=== PATIENT | female | born 1955 | race Caucasian/White ===

== ENCOUNTER → 2018-12-06 | Outpatient (CLI) | payer OTHER, SELFPAY ==
--- NOTE | 2018-12-06 12:33 | BI_ITS ---
MAMMOGRAPHY - BILATERAL SCREENING REASON FOR EXAM: Female, 63 years old. Routine annual screening examination. PERTINENT HISTORY: Aunt with breast cancer. TECHNIQUE: Digital bilateral breast ramya (3D mammographic acquisition) in the CC and MLO projections. 2-D mediolateral oblique (MLO) and craniocaudad (CC) views of both breasts were obtained. CAD: Full Field Digital Mammography with Computer Added Detection was performed. COMPARISON: Comparison is made with prior study dated September 25, 2017. FINDINGS: Breast Composition: There are scattered areas of fibroglandular density. There are no dominant masses or suspicious calcifications. No other significant abnormalities are identified. There has been no significant change since the prior study. BI/SCREEN MAMM (CAD) W/RAMYA BILAT IMPRESSION: Stable bilateral screening mammogram. Yearly follow-up mammogram recommended. (A) ASSESSMENT CATEGORY: BIRADS Category 1: Negative. A letter regarding these results will be sent to the patient by the facility within 30 days. Approximately 10% of breast cancers are not detected by mammography. A normal mammogram should not delay biopsy of a clinically suspicious abnormality. [id number] Electronically Signed: Ian Moore, at 14:14 EDT , Service support ,
== END | disposition home or self-care (01) ==
LOC: OPBI 12:32
PROVIDERS: Family Provider Family Medicine; PCP Family Medicine; Referring Provider Family Medicine; Visit Provider Family Medicine
DX: Z12.31 Encounter for screening mammogram for malignant neoplasm of breast (principal)
CPT/HCPCS: 77063; 77067

== ENCOUNTER → 2018-12-10 | Outpatient (CLI) | payer OTHER, SELFPAY ==
--- NOTE | 2018-12-10 09:36 | BD_ITS ---
STUDY: DUAL ENERGY X-RAY ABSORPTIOMETRY / DXA REASON FOR EXAM: Female, 63 years old. Early menopause. Loss of height. TECHNIQUE: Bone Mineral Density (BMD) measurements of lumbar spine and bilateral hips were obtained. COMPARISON: None. FINDINGS: Lumbar Spine (L1-L4): g/cm2 (0.805) / T-score (-3.0) / Z-score (-1.7) Findings are suggestive of osteoporosis with a high fracture risk. Left Femur Total: g/cm2 (0.892) / T-score (-0.9) / Z-score (0.1) Left Femoral Neck: g/cm2 (0.795) / T-score (-1.8) / Z-score (-0.4) Right Femur Total: g/cm2 (0.892) / T-score (-0.9) / Z-score (0.1) Right Femoral Neck: g/cm2 (0.795) / T-score (-1.8) / Z-score (-0.4) BD/Dexa Bone Density Study IMPRESSION: The patient is considered osteoporotic as outlined below according to World [employer] Organization (WHO) criteria with a high fracture risk. Reference Information: The T-score is the number of standard deviations above or below the standard which is normal for young adults at their peak bone mineral density. The World Health Organization (WHO) interprets the T-scores as follows: Above -1 Normal bone density Between -1 and -2.5 Osteopenia Equal to / or below -2.5 Osteoporosis As a practical clinical guideline, osteopenia may be graded as follows: Mild -1 through -1.5 Moderate -1.6 through -2.0 Severe -2.1 through -2.4 The Z-score is the number of standard deviations above or below age-matched controls. A Z-score of less than -1.5 would be considered abnormal. References: 1. NIH Osteoporosis and Related Bone Diseases http://www.osteo.org 2. International Society for Clinical Densitometry http://www.iscd.org 3. National Osteoporosis Foundation http://www.nof.org Electronically Signed: Ian Moore, at 11:30 EDT , Service support ,
== END | disposition home or self-care (01) ==
LOC: OPBD 09:30
PROVIDERS: Family Provider Family Medicine; PCP Family Medicine; Visit Provider Family Medicine
DX: Z78.0 Asymptomatic menopausal state (principal)
CPT/HCPCS: 77080

== ENCOUNTER → 2018-12-17 | Outpatient (CLI) | payer OTHER, SELFPAY ==
[2018-12-17 10:47] LABS: Anion Gap 8 (5-15); BUN 15 mg/dL (7-18); BUN/Creat Ratio 26.7 RATIO (10-20); Calcium,Total 8.7 mg/dL (8.5-10.1); Chloride 106 mmol/L (98-107); Cholesterol 145 mg/dL (200); Creatinine, Serum 0.56 mg/dL (0.55-1.02); EST Glomerular Filtration Rate 116 mL/min (>60); Est Glom Filt Rate - Afr Amer 141 mL/min (>60); Glucose 176 mg/dL (74-106); High Density Lipoprotein 62 mg/dL; Potassium 4.3 mmol/L (3.5-5.1); Sodium Level 142 mmol/L (136-145); Thyroid Stim Hormone (TSH) 1.07 uIU/mL (0.358-3.74); Triglycerides 175 mg/dL; Very Low Density Lipoprotein 35 mg/dL (5-40)
[2018-12-17 15:10] LABS: Hemoglobin A1c 7.5 % (4.2-6.3)
== END | disposition home or self-care (01) ==
LOC: MFPLAB 08:31
PROVIDERS: Family Provider Family Medicine; PCP Family Medicine; Referring Provider Family Medicine; Visit Provider Family Medicine
DX: Z00.00 Encounter for general adult medical examination without abnormal findings (principal); E11.9 Type 2 diabetes mellitus without complications; E78.5 Hyperlipidemia, unspecified
CPT/HCPCS: 36415; 80048; 80061; 82306; 83036; 84443

== ENCOUNTER → 2019-06-18 14:29 | Outpatient (CLI) | payer OTHER, SELFPAY | PROVIDERS: PCP Family Medicine; Referring Provider Family Medicine; Visit Provider Family Medicine | DX: R30.0 Dysuria (principal) | CPT/HCPCS: 87077; 87086; 87088; 87186 ==

== ENCOUNTER → 2019-10-06 11:08 | Outpatient (CLI) | payer OTHER, SELFPAY ==
[2019-10-06 12:20] LABS: Absolute Lymphocyte Count 2.23 X10^3/uL (0.83-4.51); Basophil# 0.04 X10^3/uL; Basophil% 0.6 % (0-1); Eosinophil# 0.48 X10^3/uL; Eosinophils% 6.6 % (0-5); Hematocrit 43.7 % (37-47); Lymphocyte # 2.23 X10^3/ul (4.0); Lymphocyte % 30.7 % (19-41); Mean Corpuscular Hgb 28.2 pg (27.0-32.0); Mean Corpuscular Volume 88.1 fL (81-99); Mean Platelet Vol. 11.5 fl (6.2-12.0); Monocyte# 0.51 X10^3/uL; NRBC Flagged by Analyzer 0 % (0-5); Neutrophil # 3.99 X10^3/uL (2.7-7.7); Neutrophil % 54.8 % (47-70); Platelet Count 229 K/mm3 (150-450); RBC Distribution Width CV 13.5 % (11.6-14.6); RBC Distribution Width SD 43.4 fl (35.1-43.9); Red Blood Count 4.96 M/mm3 (4.2-5.4); White Blood Count 7.3 K/mm3 (4.4-11.0)
[2019-10-06 13:03] LABS: Anion Gap 9 (5-15); BUN 14 mg/dL (7-18); BUN/Creat Ratio 25.1 RATIO (10-20); Calcium,Total 9.1 mg/dL (8.5-10.1); Chloride 109 mmol/L (98-107); Cholesterol 143 mg/dL (200); Creatinine, Serum 0.56 mg/dL (0.55-1.02); EST Glomerular Filtration Rate 117 mL/min (>60); Est Glom Filt Rate - Afr Amer 142 mL/min (>60); Glucose 99 mg/dL (74-106); High Density Lipoprotein 64 mg/dL; Potassium 3.9 mmol/L (3.5-5.1); Sodium Level 141 mmol/L (136-145); Triglycerides 167 mg/dL; Very Low Density Lipoprotein 33 mg/dL (5-40)
== END ==
PROVIDERS: PCP Family Medicine; Visit Provider Family Medicine
DX: I10 Essential (primary) hypertension (principal); R07.9 Chest pain, unspecified
CPT/HCPCS: 36415; 80048; 80061; 85025

== ENCOUNTER → 2019-10-17 07:39 | Outpatient (CLI) | payer OTHER, SELFPAY ==
--- NOTE | 2019-10-17 10:07 | STRESSREP ---
Stress Test Report Treadmill EKG report: Resting EKG: Normal sinus rhythm, normal axis, normal intervals, no evidence of previous myocardial infarction. Treadmill EKG: The patient exercised according to Jose Elias protocol for 6 minutes and 0 seconds achieving a maximum workload of 7.00 METS. Heart rate was initially 71 beats a minute and yvette to a max of 142 bpm which represents 89% of the maximal age-predicted heart rate. Resting blood pressure was 140/82, and yvette to a maximum of 168/86. Test was terminated due to attainment of target heart rate, dyspnea and chest discomfort. Conclusions: Normal, adequate, treadmill EKG. Negative for ischemia by EKG criteria. Patient did develop chest pain with no associated EKG changes. Average exercise capacity for age. Appropriate blood pressure response to exercise. Patient tolerate procedure well. Recommend clinical correlation or alternative mode of testing of corn occlusive disease and strongly suspected given the patient's chest discomfort during exercise.
== END ==
PROVIDERS: PCP Family Medicine; Visit Provider Family Medicine
DX: R07.9 Chest pain, unspecified (principal); R00.2 Palpitations
CPT/HCPCS: 93017

== ENCOUNTER → 2019-10-23 13:42 | Outpatient (CLI) | payer OTHER, SELFPAY ==
--- NOTE | 2019-10-23 13:46 | CT_ITS ---
STUDY: CT CHEST WITH CONTRAST REASON FOR EXAM: Female, 64 years old. CHEST PAIN INTERMITTENT X 1 MONTH, SOB INTERMITTENT X 2 MONTHS. COUGH WITH DEEP BREATH. H/O PE 27 YEARS AGO. RADIATION DOSAGE (If Supplied By Facility): CTDIvol = ( 12.635 ) mGy, DLP = ( 383.45 ) mGycm TECHNIQUE: Transaxial imaging was performed following intravenous administration of IV - 100 mL IsoVue 370. Multiplanar coronal and sagittal images were reformatted. Individualized dose optimization techniques were used for this CT. COMPARISON: None. FINDINGS: Mild degree of increased markings at the lung bases suggestive of either atelectasis and/or scarring. There is evidence of a 7.3 mm noncalcified pleural-based nodule in the medial aspect of the right lower lobe as seen on axial image #73. This may represent part of the fibrotic process. Follow-up is recommended. There is no demonstrated pleural abnormality. Normal heart and pericardium. Normal mediastinum. Normal hilar regions. Normal enhanced pulmonary arteries. Normal aorta arch and descending thoracic aorta. There are multi-level degenerative changes of the thoracic spine. Diffuse fatty infiltration of the liver. CT/Chest WITH Contrast IMPRESSION: Mild degree of increased markings at the lung bases suggestive of scarring. Findings suggestive of a 7.3 mm noncalcified pleural-based nodule in the right lower lobe in the medial segment as described. Follow-up in 6 months is recommended. Fatty infiltration of the liver. Electronically Signed: Ian Moore, at 14:30 EDT , Service support ,
== END ==
PROVIDERS: PCP Family Medicine; Referring Provider Family Medicine; Visit Provider Family Medicine
DX: R07.9 Chest pain, unspecified (principal)
CPT/HCPCS: 71260; Q9967

== ENCOUNTER → 2019-12-08 10:43 | Outpatient (CLI) | payer OTHER, SELFPAY ==
[2019-12-04 13:32] VITALS: BMI 32.1
--- NOTE | 2019-12-08 10:44 | ECHOD_ITS ---
Reason For Study: CP Procedure This was a 2D Doppler, Color Flow transthoracic echocardiogram. Technically difficult parasternal images, parasternal sax taken from subcostal window. The study was technically difficult. Exam performed in department. Left Ventricle Normal LV size. Left ventricular systolic function is normal. The estimated ejection fraction is 65 %. Diastolic function is indeterminate. No regional wall motion abnormalities noted. Right Ventricle Normal RV size. Normal systolic function. Atria Normal left atrium. Normal right atrium. No doppler evidence for ASD. Mitral Valve There is no mitral annular calcification. Normal mitral valve. Trivial mitral valve insufficiency. Tricuspid Valve The tricuspid valve is not well visualized. Mild eccentric tricuspid valve insufficiency. Unable to estimate RV systolic pressure/pulmonary artery pressure due to technically difficult study. Aortic Valve Trisinus/trileaflet aortic valve. Mild focal aortic valve thickening. Pulmonic Valve The pulmonic valve is not well visualized. Great Vessels The aortic root is not well visualized. Pericardium/Pleural No pericardial effusion. MMode/2D Measurements & Calculations LVIDd: 4.0 cm IVSd: 1.1 cm LAV(MOD-bp): 25.7 ml LVIDs: 2.4 cm LVPWd: 0.95 cm LAV(MOD-bp) Indexed: 15.2 ml/m2 RVDd: 2.6 cm FS: 39.4 % LAV(MOD-sp2): 31.2 ml LAV(MOD-sp4): 20.6 ml LA A4 area: 11.1 cm2 RA A4 area: 11.7 cm2 Time Measurements MV dec time: 0.26 sec Doppler Measurements & Calculations MV E max julián: 76.4 cm/sec Lat Peak E' Julián: 8.6 cm/sec Med Peak E' Julián: 6.3 cm/sec MV A max julián: 96.1 cm/sec E/E' lat: 8.8 E/E' med: 12.2 MV E/A: 0.79 MV V2 max: 105.9 cm/sec MV P1/2t max julián: 80.9 cm/sec Ao V2 max: 154.1 cm/sec MV max P.5 mmHg MV P1/2t: 105.2 msec Ao max P.5 mmHg MV V2 mean: 55.4 cm/sec MV dec slope: 225.2 cm/sec2 MV mean P.4 mmHg MV V2 VTI: 27.7 cm MVA(P1/2t): 2.1 cm2 LV V1 max: 121.5 cm/sec PA V2 max: 107.6 cm/sec LV V1 max P.9 mmHg Interpretation Summary The study was technically difficult. Left ventricular systolic function is normal. The estimated ejection fraction is 65 %. Trivial mitral valve insufficiency. Mild eccentric tricuspid valve insufficiency. Mild focal aortic valve thickening. Unable to estimate RV systolic pressure/pulmonary artery pressure due to technically difficult study. Diastolic function is indeterminate. Ordering Physician: Matthew Bourgeois Referring Physician: Matthew Adan Performed By: Ata Salinas RCS
== END ==
PROVIDERS: PCP Family Medicine; Referring Provider Internal Medicine Cardiovascular Disease; Visit Provider Internal Medicine Cardiovascular Disease
DX: R07.9 Chest pain, unspecified (principal); I20.9 Angina pectoris, unspecified; E78.5 Hyperlipidemia, unspecified; I10 Essential (primary) hypertension
CPT/HCPCS: 93306

== ENCOUNTER 2019-12-09 08:51 | Day surgery (SDC) | payer OTHER, SELFPAY ==
--- NOTE | 2019-12-04 02:40 | HP_ITS ---
HPI HPI History of Present Illness Surgical H&P: Yes Details: This is a 64-year-old white female who presents today for outpatient cardiovascular consultation based upon concerns of chest discomfort concerning for angina pectoris superimposed upon hyperlipidemia, hypertension, diabetes mellitus, and a history of a remote pulmonary embolus (greater than 20 years ago). She states her main concerns of the last few months have been progressive chest discomfort which she believes is worsening. She points to her precordium and states she has a pressure/heavy sensation which oftentimes radiates up to her neck and her jaw-potentially more so on the right side. She states that she has noted this to occur at rest when she is getting ready for bed. She has taken aspirin for it and believes she felt somewhat better. She also notes that she has been somewhat more short of breath and dyspneic. This is more so with activity. She has not had orthopnea. She states she does not sleep supine but sleeps sitting up. She is not sure if it is related to the symptoms or her GERD symptoms for which she is now being treated for which she states those symptoms are different from her other symptoms. She notes her GERD symptoms lead to a burning sensation in her neck area. She has not had near syncope or syncope. She has undergone evaluation with an exercise tolerance test. She states that took everything I had to do what she did. She had symptoms during it but had no obvious ECG changes during it. She also had a chest CT scan performed last month. She had no great vessel disease. She did have a pulmonary nodule which she states is going to be followed noninvasively at this time. She had an ECG in the office today. She was noted to be in sinus rhythm with no acute ECG changes. Intake Vital Signs 12/04/19 Height 4 ft 11 in 12/04/19 Weight: 159 lb 12/04/19 BMI 32.1 12/04/19 BP 110/76 12/04/19 Blood Pressure Location Lt brachial 12/04/19 Position Sitting 12/04/19 Respiration 18 12/04/19 Pulse 68 12/04/19 Pulse Source Auscultation Intake Visit Reasons: CP,RAMSES Hat Model Required: No Accompanied by: Self Allergies codeine Adverse Reaction (Severe, Verified 12/04/19 13:32) Nausea Penicillins Adverse Reaction (Unknown, Verified 12/04/19 13:32) Unknown Medications aspirin 81 mg tablet,delayed release 81 mg PO DAILY 12/01/19 [History Confirmed 12/04/19] dapagliflozin 10 mg tablet 10 mg PO DAILY 12/01/19 [History Confirmed 12/04/19] glimepiride 4 mg tablet 4 mg PO DAILY 12/01/19 [History Confirmed 12/04/19] lisinopril 10 mg tablet 10 mg PO DAILY 12/01/19 [History Confirmed 12/04/19] metformin 1,000 mg tablet 1,000 mg PO BID 12/01/19 [History Confirmed 12/04/19] metoprolol succinate 50 mg tablet,extended release 24 hr 50 mg PO DAILY 12/01/19 [History Confirmed 12/04/19] rosuvastatin 5 mg tablet 5 mg PO DAILY 12/01/19 [History Confirmed 12/04/19] clopidogrel 75 mg tablet 75 mg PO DAILY #30 tab 12/04/19 [Rx Confirmed 12/04/19] omeprazole 20 mg capsule,delayed release 20 mg PO DAILY 12/04/19 [History Confirmed 12/04/19] [facility] Medical History (Updated 12/04/19 @ 14:[address] Matthew Bourgeois MD) Mixed hyperlipidemia (Chronic) Palpitations (Acute) Type 2 diabetes mellitus (Chronic) Essential hypertension (Chronic) Chest pain (Acute) Fibromyalgia (Acute) IBS (irritable bowel syndrome) (Acute) Pulmonary embolism (Acute) Surgical History (Updated 12/01/19 @ 15:25 by Joyce Milton) History of bladder surgery (Resolved) History of carpal tunnel surgery (Resolved) History of cholecystectomy (Resolved) Family History (Updated 12/04/19 @ 13:34 by Joyce Milton) Mother Myocardial infarction Brother Diabetes Uncle Myocardial infarction Uncle Myocardial infarction Social History (Updated 12/04/19 @ 14:[address] Matthew Bourgeois MD) Smoking Status: Never smoker alcohol intake: never substance use type: does not use caffeine: Yes Type: coffee Number of servings: 1, tea ROS Const Const: Positive for fatigue (increased); negative for weakness, frequent falls, excessive sweating, weight gain or weight loss Eyes Eyes: Positive for blurry vision; negative for transient loss of vision or change in vision ENT ENT: Positive for dizziness (anytime; bending over, laying flat) and balance problems (slight) Cardio Chest Pain: Yes Character: sharp (intermittent radiation shoulder and jaw), dull (intermittent), tightness (constant; trying to get deep breath), other (heaviness; constant trying to get deep breath) Onset: at rest, exercise Location: right chest, other (across chest) Duration: minutes Palpitations: Yes (occasional) feels like its: fast, skipping, pounding Edema: Bilateral (occasional LE) Muscle aches with walking: None Resp Respiratory: Positive for SOB with activity (progressively worse), SOB at rest (progressively worse) and SOB orthopnea\SOB lying down (feels alot of pressure/SOB props with 4 pillows) GI GI: Negative vomiting or vomiting blood/hematemesis : Negative for hematuria Musc Musc: Positive for balance problems (slight); negative for muscle aches/ myalgia, muscle weakness or joint pain Skin Skin: Negative non-healing lesions or rash Neuro Neuro: Positive for dizziness (anytime; bending over, laying flat), lightheadedness (always), near syncope (occasional) and blurry vision; negative for orthostatic symptoms, frequent falls or weakness Ryan Hematologic/Lymphatic: Negative for easy bleeding Endo Endo: Positive for fatigue (increased); negative for excessive sweating Psych Psych: Negative for anxiety or depression Allergy Allergy/Immunology: Negative for hives, Negative for rash Cardiology Exam Const Appearance: cooperative, healthy appearing, comfortable, no acute distress, well developed and well groomed Nutritional Appearance: overweight Orientation: alert and awake Head Head: normal to inspection, normocephalic and atraumatic Ears: hearing grossly normal bilaterally Nose: external nose normal Face and Sinus: face symmetric Eyes Eyelids: eyelids normal Conjunctivae: conjunctivae normal Pupils: PERRL EOM: EOM intact bilaterally Neck Neck: normal visual inspection and full ROM Carotids: normal carotid upstroke Chest Chest inspection: normal inspection of the chest, symmetric chest movement and normal respiratory effort Auscultation: Bilateral: Clear to Auscultation Cardio Palpation: normal PMI Rate: regular rate Rhythm: regular rhythm Heart sounds: S1 normal and S2 normal GI GI: normal to inspection, soft and bowel sounds present Neuro General: alert, oriented x3 and moves all extremities Skin Skin: no rashes or lesions noted Extremities Pulses: Normal: Right Radial Pulse, Left Radial Pulse Lower Extremity Edema: None: Bilateral Psych Psychological: normal affect Assessment & Plan 1. Angina pectoris I20.9 Plan At the present time there are concerns of her symptoms are related to angina pectoris which is worsening. She does have multiple cardiovascular risk factors. She states she watched her relatives go through symptoms of cardiovascular disease and she believes hers are similar. A lengthy discussion was held with her with respect to further noninvasive and invasive evaluation. At the present time she is going to continue medical management. She will undergo further evaluation with an echocardiogram to evaluate her left ventricular wall motion and systolic function. A discussion was held with respect to additional noninvasive studies such as an exercise tolerance test/imaging study versus evaluation with diagnostic cardiac catheterization. Based upon her seemingly worsening symptoms with her multiple cardiovascular risk factors the consensus was to proceed with further definitive coronary artery evaluation with a diagnostic cardiac catheterization. The procedure and risks were discussed with her. She was agreeable to this approach. She will be placed on medical therapy with antiplatelet therapy with clopidogrel/Plavix in anticipation of this procedure and potentially needing coronary artery revascularization from a catheter-based standpoint. Orders Orders: Left Heart Cath/COR/LV Percut Today Basic Metabolic Profile (BMP) Today Partial Thromboplast Time Today Prothrombin Time w/INR Today Echo Complete Today CBC W/Diff, Automated Today 2. Mixed hyperlipidemia E78.2 Plan She will continue medical management. Orders Orders: 12 Lead EKG performed by BMS Today Left Heart Cath/COR/LV Percut Today Basic Metabolic Profile (BMP) Today Partial Thromboplast Time Today Prothrombin Time w/INR Today Echo Complete Today CBC W/Diff, Automated Today 3. Essential hypertension I10 Plan Her blood pressure appears to be reasonably well controlled. She will continue medical therapy Orders Orders: 12 Lead EKG performed by BMS Today Left Heart Cath/COR/LV Percut Today Basic Metabolic Profile (BMP) Today Partial Thromboplast Time Today Prothrombin Time w/INR Today Echo Complete Today CBC W/Diff, Automated Today Plan Detail Other Orders Orders: 12 Lead EKG performed by BMS Today R07.9 Other Medications New: clopidogrel (Plavix) 75 mg PO DAILY 30 tabs 1RF Additional Comments Thank you for allowing me to participate in the care of your patient. Please don't hesitate to call if any issues arise. This note was generated using a voice recognition system and there may be incorrect words, spelling or punctuation that were not noted when reviewing the office note prior to saving. Follow Up 3 Months (PFM) Coding Level of Care Code Off vis,new,level 5 Diagnoses Angina pectoris I20.9 Mixed hyperlipidemia E78.2 Essential hypertension I10 Coding Level of Care Code Off vis,new,level 5 Diagnoses Angina pectoris I20.9 Mixed hyperlipidemia E78.2 Essential hypertension I10 Supplemental Info Supplemental Information Stress Test Report: 10/17/2019 Treadmill EKG report: Resting EKG: Normal sinus rhythm, normal axis, normal intervals, no evidence of previous myocardial infarction. Treadmill EKG: The patient exercised according to Jose Elias protocol for 6 minutes and 0 seconds achieving a maximum workload of 7.00 METS. Heart rate was initially 71 beats a minute and yvette to a max of 142 bpm which represents 89% of the maximal age-predicted heart rate. Resting blood pressure was 140/82, and yvette to a maximum of 168/86. Test was terminated due to attainment of target heart rate, dyspnea and chest discomfort. Conclusions: Normal, adequate, treadmill EKG. Negative for ischemia by EKG criteria. Patient did develop chest pain with no associated EKG changes. Average exercise capacity for age. Appropriate blood pressure response to exercise. Patient tolerate procedure well. Recommend clinical correlation or alternative mode of testing of corn occlusive disease and strongly suspected given the patient's chest discomfort during exercise. 10/17/19 1011<Electronically signed by Lewis Ash MD> Date Lewis Ash MD Labs LDL Cholesterol 46 mg/dL (0-130) 10/06/19 HDL Cholesterol 64 mg/dL (40-) 10/06/19 Triglycerides 167 mg/dL (-199) 10/06/19 VLDL Cholesterol 33 mg/dL (5-40) 10/06/19 Diagnostics Electrocardiogram 12/04/19 Stress Test 10/17/19 COVID (Procedure Consent) Procedure Criteria Procedure Criteria: Yes Elective The surgeon/proceduralist and patient have discussed in detail the risk of exposure to and/or potential harm posed by the COVID-19 virus with having a surgery/procedure at this time versus the risk of delaying the surgery/procedure. It is not possible to know either the risk of delaying the surgery or procedure or chance of getting an infection with perfect accuracy, but a joint decision was made between the patient and the surgeon/proceduralist to proceed at this time with the scheduled surgery/procedure as indicated on the consent form. 12/04/19 1440 <Electronically signed by Matthew beaver MD> Date _ Matthew Bourgeois MD Addendum: Date: 12-09-2019 I have examined the patient the following changes are noted: The patient did undergo transthoracic echocardiogram on 12-08-2019. The interpretation is as noted: The study was technically difficult Left ventricular systolic function is normal The estimated ejection fraction of 65% Trivial MR Mild eccentric TR Mild focal aortic valve thickening Unable to estimate RV systolic pressure/pulmonary artery pressure due to technically difficult study Diastolic function is indeterminate
[2019-12-04 13:32] VITALS: BMI 32.1
[2019-12-08 09:53] VITALS: BMI 32.1
[2019-12-08 12:21] LABS: Absolute Neutrophil Count 3.9 X10^3/uL (2.0-7.7); Basophil# 0.04 X10^3/uL; Basophil% 0.6 % (0-1); Eosinophil# 0.13 X10^3/uL; Eosinophils% 1.9 % (0-5); Hematocrit 41.7 % (37-47); Hemoglobin 13.4 g/dL (12.0-15.0); Lymphocyte % 31.5 % (19-41); Mean Corp Hgb Conc 32.1 g/dL (32-36); Mean Corpuscular Hgb 29.3 pg (27.0-32.0); Monocyte# 0.51 X10^3/uL; Monocyte% 7.6 % (0-10); NRBC Flagged by Analyzer 0 % (0-5); Neutrophil # 3.87 X10^3/uL (2.7-7.7); Neutrophil % 58.1 % (47-70); Platelet Count 195 K/mm3 (150-450); RBC Distribution Width CV 13.7 % (11.6-14.6); RBC Distribution Width SD 45.1 fl (35.1-43.9); Red Blood Count 4.58 M/mm3 (4.2-5.4); White Blood Count 6.7 K/mm3 (4.4-11.0)
[2019-12-08 12:38] LABS: Prothrombin Time (Protime)PT. 12.6 SECONDS (11.7-14.9)
[2019-12-08 12:39] LABS: Partial Thromboplast Time 24.5 Seconds (24.1-36.2)
[2019-12-08 12:55] LABS: Anion Gap 7 (5-15); BUN 13 mg/dL (7-18); BUN/Creat Ratio 18.3 RATIO (10-20); Calcium,Total 8.6 mg/dL (8.5-10.1); Chloride 110 mmol/L (98-107); Creatinine, Serum 0.71 mg/dL (0.55-1.02); EST Glomerular Filtration Rate 88 mL/min (>60); Est Glom Filt Rate - Afr Amer 107 mL/min (>60); Estimated Creatinine Clearance 93.54 ml/min; Glucose 149 mg/dL (74-106); Potassium 3.9 mmol/L (3.5-5.1); Sodium Level 142 mmol/L (136-145)
--- NOTE | 2019-12-09 11:24 | CL.D_ITS ---
Patient Name: REENA LAWRENCE Study Date: 12/09/2019 Performing: Matthew Bourgeois MD Ht: 59.05 inches 150 cm : 1955 Wt: 158.73 lbs 72 kg Age: 64 Gender: female BSA: 1.67 PROCEDURE(S) PERFORMED EU18-CHJ/COR/LV CLINICAL PROFILE AND INDICATIONS Indications: Worsening Angina, Suspected CAD Heart Failure: None Stress/Imaging Date: 10/17/2019 Angina Classification Anginal Classification w/in 2 Weeks: CCS III CAD Presentations: Other: Chest pain / dyspnea on exertion CONCLUSIONS Elevated Left Ventricular End Diastolic Pressure Normal LV size, wall motion,and systolic function LVEF: by LV gram 65 % Normal coronary arteries RECOMMENDATIONS Risk factor modification Medical therapy DESCRIPTION OF PROCEDURE The patient arrived to the procedure lab. The risks and benefits of the procedure as well as a full d escription of our services here and current unavailability of surgical backup were fully explained to the patient and/or their significant other prior to the catheterization. The Timeout was completed, verifying the correct patient and procedure. The patient's procedural site was prepped and draped in the usual fashion. Local anesthetic was given subcutaneously to right groin region with Lidocaine 2%. Using a modified Seldinger technique, arterial access was obtained via the right femoral artery, a 4 Fr sheath was inserted Left Coronary Artery selective angiography was performed in multiple views us ing a 4 Fr. JL5 catheter. Right Coronary Artery selective angiography was then performed in multiple views using a 4 Fr. 3DRC catheter. Left Ventriculography was performed in COFFEY projection using a 4 Fr . Pigtail catheter. LV to AO pullback pressures were then recorded.The arterial sheath was pulled and manual compression applied until hemostasis is achieved. CORONARY ANGIOGRAPHY DOMINANCE: Co- Dominant LEFT HEART ASSESSMENT Left Ventricular Ejection Fraction: by LV Gram 65 % Normal LV wall motion Elevated Left Ventricular End Diastolic Pressure LVEDP: 21 mmHg LEFT MAIN: Angiographically normal LEFT ANTERIOR DESCENDING ARTERY: Angiographically normal CIRCUMFLEX ARTERY: Angiographically normal RIGHT CORONARY ARTERY: Angiographically normal AORTIC ROOT: Angiographically normal COMPLICATIONS No Complications PROCEDURE MEDICATIONS Versed 1 mg IV Oxygen: 2 L/min via nasal cannula SUMMARY OF HEMODYNAMIC DATA Time AIR REST ECG 09:21:13 AO 150/73 (102) SA 10:43:19 LV 152/-15, 20 10:51:40 LV 149/-15, 21 10:51:47 LV 143/-10, 24 10:52:36 LVp 149/-11, 19 10:52:41 AOp 147/77 (108) 10:52:46 Signed By Matthew Bourgeois MD On 12/09/2019 11:23:46 Matthew Bourgeois MD
== END 2019-12-09 15:34 | disposition home or self-care (01) ==
LOC: CLSP 08:52
PROVIDERS: PCP Family Medicine; Referring Provider Internal Medicine Cardiovascular Disease; Visit Provider Internal Medicine Cardiovascular Disease
DX: I20.9 Angina pectoris, unspecified (principal); I10 Essential (primary) hypertension; E11.9 Type 2 diabetes mellitus without complications; Z86.711 Personal history of pulmonary embolism; K21.9 Gastro-esophageal reflux disease without esophagitis; R91.1 Solitary pulmonary nodule; Z79.899 Other long term (current) drug therapy; Z79.82 Long term (current) use of aspirin; Z79.84 Long term (current) use of oral hypoglycemic drugs; Z79.02 Long term (current) use of antithrombotics/antiplatelets; E78.2 Mixed hyperlipidemia; M79.7 Fibromyalgia; K58.9 Irritable bowel syndrome, unspecified; R07.89 Other chest pain
CPT/HCPCS: 36415; 80048; 85025; 85610; 85730; 93458; 99152; 99153; J7040; Q9967; C1769; C1894

== ENCOUNTER 2019-12-09 19:00 | Observation (INO) | payer OTHER, SELFPAY ==
[2019-12-08 09:53] VITALS: BMI 32.1
[2019-12-09 19:03] VITALS: BP 92/69; PULSE 83; RESP 16; TEMP 36.7; O2SAT 97; BMI 31.3
--- NOTE | 2019-12-09 20:05 | CT_ITS ---
STUDY: CTA OF THE ABDOMINAL AORTA AND BILATERAL LOWER EXTREMITIES REASON FOR EXAM: Female, 64 years old. Concern for pseudoaneurysm after heart catheterization today. Swelling and bruising and firmness in the groin to hours after procedure. RADIATION DOSAGE (If Supplied By Facility): CTDIvol = ( 8.53 ) mGy, DLP = ( 1150.11 ) mGycm TECHNIQUE: Axial CT angiography multi-detector data acquisition was obtained from the the diaphragm to the feet following intravenous administration of IV 100mL Isovue-300. Axial images and MIP images were reconstructed from the axial data set. Post-processing of the angiographic images was performed, with multiplanar reformation and 3D reconstruction. Individualized dose optimization techniques were used for this CT. TECHNICAL QUALITY: Good COMPARISON: None. Descriptors of Narrowing: None (0%) Mild (< 50%) Moderate (50-70%) Severe (70-90%) Subtotal/Total Occlusion (90-100%) Non-Evaluable (technically non-diagnostic FINDINGS: Abdominal aorta: No demonstrated narrowing. Celiac and superior mesenteric arteries: No demonstrated narrowing. Inferior mesenteric artery: No demonstrated narrowing. Right renal artery(arteries): No demonstrated narrowing. Left renal artery(arteries): No demonstrated narrowing. Right common iliac artery: No demonstrated narrowing. Right external iliac artery: No demonstrated narrowing. Right internal iliac artery: No demonstrated narrowing. Left common iliac artery: No demonstrated narrowing. Left external iliac artery: No demonstrated narrowing. Left internal iliac artery: No demonstrated narrowing. RIGHT LOWER EXTREMITY Right common femoral artery: No demonstrated narrowing. Right profundus femoris: No demonstrated narrowing. Right superficial femoral: No demonstrated narrowing. Right popliteal artery: No demonstrated narrowing. Right tibioperoneal trunk: No demonstrated narrowing. Right anterior tibial artery: No demonstrated narrowing. Right posterior tibial artery: No demonstrated narrowing. Right peroneal artery: No demonstrated narrowing. LEFT LOWER EXTREMITY Left common femoral artery: No demonstrated narrowing. Left profundus femoris: No demonstrated narrowing. Left superficial femoral: No demonstrated narrowing. Left popliteal artery: No demonstrated narrowing. Left tibioperoneal trunk: No demonstrated narrowing. Left anterior tibial artery: No demonstrated narrowing. Left posterior tibial artery: No demonstrated narrowing. Left peroneal artery: No demonstrated narrowing. Normal lung bases. No normal heart. Diffuse fatty infiltration liver without focal mass. Evidence of cholecystectomy. Normal spleen. Normal pancreas. Normal adrenal glands. Normal kidneys. Normal IVC and retroperitoneum. Normal stomach. Normal small bowel. Normal colon. The appendix is not visualized. Normal urinary bladder. Normal uterus and adnexa. There is no pelvic lymphadenopathy. No free air or free fluid is seen within the peritoneal cavity. There is diffuse stranding of the subcutaneous tissues in the right groin. There is soft tissue density within the subcutaneous fat suggesting hematoma. There is no extravasation of contrast to suggest pseudoaneurysm. Stranding extends along the lateral right hip and downward into the anteromedial thigh. CT/CTA Abd w/Runoff W/WO Contrast IMPRESSION: 1. Normal abdominal aorta and bilateral lower extremity run-off without a hemodynamically significant stenosis. 2. Stranding in the soft tissues of the right inguinal area with some cutaneous hematoma. There is no evidence of pseudoaneurysm. 3. Normal abdominal and pelvic contents. Electronically Signed: Kirk Lauren DO at 21:35 EDT Tel [phone], Service support ,
[2019-12-09 20:16] LABS: Absolute Lymphocyte Count 1.33 X10^3/uL (0.83-4.51); Absolute Neutrophil Count 7.4 X10^3/uL (2.0-7.7); Basophil# 0.04 X10^3/uL; Basophil% 0.4 % (0-1); Eosinophil# 0.08 X10^3/uL; Eosinophils% 0.8 % (0-5); Hematocrit 36.9 % (37-47); Hemoglobin 11.9 g/dL (12.0-15.0); Lymphocyte # 1.33 X10^3/ul (4.0); Mean Corp Hgb Conc 32.2 g/dL (32-36); Mean Corpuscular Hgb 28.6 pg (27.0-32.0); Mean Corpuscular Volume 88.7 fL (81-99); Mean Platelet Vol. 11.8 fl (6.2-12.0); Monocyte# 0.66 X10^3/uL; Monocyte% 6.9 % (0-10); NRBC Flagged by Analyzer 0 % (0-5); Neutrophil % 77.7 % (47-70); Platelet Count 201 K/mm3 (150-450); RBC Distribution Width CV 13.6 % (11.6-14.6); RBC Distribution Width SD 43.8 fl (35.1-43.9); Red Blood Count 4.16 M/mm3 (4.2-5.4); White Blood Count 9.5 K/mm3 (4.4-11.0)
[2019-12-09] MEDS: Morphine 4 MG/ML Syringe IV (20:20)
[2019-12-09] MEDS: Ondansetron 4 MG/2 ML Vial IV (20:20)
[2019-12-09 20:27] LABS: Partial Thromboplast Time 24.7 Seconds (24.1-36.2)
[2019-12-09 20:35] LABS: Anion Gap 6 (5-15); BUN 12 mg/dL (7-18); BUN/Creat Ratio 14.2 RATIO (10-20); Calcium,Total 8.4 mg/dL (8.5-10.1); Chloride 112 mmol/L (98-107); Creatinine, Serum 0.85 mg/dL (0.55-1.02); EST Glomerular Filtration Rate 72 mL/min (>60); Est Glom Filt Rate - Afr Amer 87 mL/min (>60); Estimated Creatinine Clearance 76.17 ml/min; Glucose 308 mg/dL (74-106); Potassium 4.7 mmol/L (3.5-5.1); Sodium Level 142 mmol/L (136-145)
[2019-12-09 21:32] LABS: Mucous, Urine 0 SEEN /hpf (<or=2+); Squamous Epithelial Cells - UA 0 SEEN /hpf (5-10)
[2019-12-09 21:34] LABS: Color, Urine Yellow (Yellow); Glucose, Dipstick 1000 mg/dl (Normal); Ketone-Dipstick 5 mg/dl (Negative); Leukocyte Esterase-Dipstick 100 /ul (Negative); Nitrite-Dipstick Negative (Negative); Occult Blood-Urine 150 /ul (Negative); Protein-Dipstick 15 mg/dl (Negative); Specific Gravity, Urine 1.015 (1.002-1.030); Urine Bilirubin Dipstick Negative (Negative); Urine Clarity Sl. Cloudy (Clear); Urine Urobilinogen Normal (Normal)
[2019-12-09 21:40] LABS: White Blood Cells 25-50 SEEN /hpf (0-5)
[2019-12-09 21:41] LABS: Bacteria RARE /hpf (None Seen)
[2019-12-09 21:42] LABS: Red Blood Cells-Urine 0-5 SEEN /hpf (0-5)
[2019-12-09 21:45] VITALS: BP 120/52; PULSE 85; RESP 12; O2SAT 98
[2019-12-09] MEDS: Ceftriaxone 1 GM/50 ML BAG IV (22:29)
--- NOTE | 2019-12-09 22:59 | PCM.HP.STD ---
Problem List (1) Hematoma Status: Acute (2) Mixed hyperlipidemia Status: Chronic (3) Palpitations Status: Chronic (4) Type 2 diabetes mellitus Status: Chronic (5) Essential hypertension Status: Chronic (6) Chest pain Status: Inactive Qualifiers: Chest pain type: precordial pain Qualified Code(s): R07.2 - Precordial pain History of Present Illness Date of Admission: 12/09/19 Chief Complaint: hematoma at groin The patient is a 64 year old F with a history of Fibromyalgia; pulmonary embolism; HTN; and who had a cardiac cath on 12/09/2019 presenting with a swelling at the cath site of the right groin. Reportedly the cardiac cath was done because of shortness of breath and chest heaviness. The cardiac cath was unremarkable for coronary arterial disease. Further she reports dysuria. She has a chronic increased urinary frequency and urgency that is unchanged. Her chronic increased urinary frequency and urgency started after she was started on Dapagliflozin. Past Medical History Past Medical History (Chronic Problems): Chronic Problems (Last Reviewed 12/10/19 @ 04:[address] Frankie Baker MD) Mixed hyperlipidemia (Chronic) Palpitations (Chronic) Type 2 diabetes mellitus (Chronic) Essential hypertension (Chronic) Medical History: Medical History (Last Reviewed 12/10/19 @ 04:[address] Frankie Baker MD) Mixed hyperlipidemia (Chronic) E78.2 Palpitations (Acute) R00.2 Type 2 diabetes mellitus (Chronic) E11.9 Essential hypertension (Chronic) I10 Chest pain (Acute) R07.9 Fibromyalgia M79.7 IBS (irritable bowel syndrome) K58.9 Pulmonary embolism I26.99 Allergies codeine Adverse Reaction (Severe, Verified 12/09/19 19:02) Nausea Penicillins Adverse Reaction (Unknown, Verified 12/09/19 19:02) Unknown Home Medications: Ambulatory Orders Medication Instructions Recorded aspirin 81 mg tablet,delayed 81 mg PO DAILY 12/01/19 release dapagliflozin 10 mg tablet 10 mg PO DAILY 12/01/19 glimepiride 4 mg tablet 4 mg PO DAILY 12/01/19 lisinopril 10 mg tablet 10 mg PO DAILY 12/01/19 metformin 1,000 mg tablet 1,000 mg PO BID 12/01/19 metoprolol succinate 50 mg 50 mg PO DAILY 12/01/19 tablet,extended release 24 hr rosuvastatin 5 mg tablet 5 mg PO DAILY 12/01/19 omeprazole 20 mg capsule,delayed 20 mg PO DAILY 12/04/19 release Melatonin/Pyridoxine HCl (B6) 1 ea PO QHS PRN 12/10/19 [Melatonin 10 mg Tablet] Surgical History: Surgical History (Last Updated 12/01/19 @ 15:25 by Joyce Milton) History of bladder surgery Z98.890 Bladder suspension History of carpal tunnel surgery Z98.890 Both 07/27/15; left 2011; Both 1999 History of cholecystectomy Z90.49 Smoking Status: Never smoker - *Family History Maternal Family History: Family History (Last Reviewed 12/10/19 @ 04:[address] Frankie Baker MD) Mother Myocardial infarction Brother Diabetes Uncle Myocardial infarction Uncle Myocardial infarction Review of Systems Constitutional: Denies: Chills, Fever, Weight Change HEENT: Denies: Head Aches, Sinus Congestion, Sinus Drainage Cardiovascular: Denies: Chest Pain, Palpitations Respiratory: Denies: Cough, Shortness of breath at rest, Sputum production Gastrointestinal: Denies: Abdominal Pain, Nausea, Vomiting Genitourinary: Denies: Dysuria Musculoskeletal: Reports: Joint Pain - Right hip at cardiac catheterization sites.., Joint Tenderness - Right hip at cardiac catheterization sites. Skin: Denies: Rash, Wounds Neurological: Denies: Numbness, Tingling, Focal weakness Psychiatric: Denies: Anxiety, Depression, Homicidal Ideations, Suicidal Ideations Hematologic/ Lymphatic: Reports: - - Bruising at the right hip at cardiac catheterization sites. VTE Information - Inpt Only VTE Present on Admission: No VTE Mechan Device Prophylaxis: SCD's VTE Pharm Prophylaxis ordered?: No Patient Problems: Active and Suspected Problems (Last Reviewed 12/10/19 @ 04:[address] Frankie Baker MD) Hematoma (Acute) - Physical Exam Vitals/I&O's: Vital Signs Temp Pulse Resp BP Pulse Ox 98.1 F 85 12 120/52 L 98 12/09/19 19:03 12/09/19 21:45 12/09/19 21:45 12/09/19 21:45 12/09/19 21:45 Oxygen Delivery Method Room Air Weight: 70.307 kg Body Mass Index (BMI) 31.3 General: Alert, Oriented x3, Cooperative HEENT: Atraumatic, PERRLA, EOMI, Normocephalic Neck: Supple, No JVD, Negative Carotid Bruits Lungs: Clear to auscultation, Normal air movement, No rhonchi, No wheeze, No rales Cardiovascular: Regular rate, Normal S1, Normal S2, No murmurs Abdomen: Bowel Sounds Present, Soft, Non Tender Extremities: Capillary Refill Less than 3 Seconds, Tenderness - Right groin Skin: - - Swelling and ecchymosis at right groin. Musculoskeletal: No Tenderness to Palpation of Joints or Extremities Neurological: Cranial nerves II-XII grossly intact Psych/Mental Status: Normal Affect, Appropriate Laboratory Results 12/09/19 20:05: WBC 9.5, RBC 4.16 L, Hgb 11.9 L, Hct 36.9 L, MCV 88.7, MCH 28.6, MCHC 32.2, RDW Std Deviation 43.8, RDW Coeff of [place] 13.6, Plt Count 201, MPV 11.8, Immature Gran % (Auto) 0.200, Neut % (Auto) 77.7 H, Lymph % (Auto) 14.0 L, [place] % (Auto) 6.9, Eos % (Auto) 0.8, Baso % (Auto) 0.4, Absolute Neuts (auto) 7.4, Absolute Lymphs (auto) 1.33, Nucleated RBC % 0 12/09/19 20:05: PT 13.0, INR 1.0, APTT 24.7 12/09/19 20:05: Sodium 142, Potassium 4.7, Chloride 112 H, Carbon Dioxide 24.0, Anion Gap 6, BUN 12, Creatinine 0.85, Estim Creat Clear Calc 76.17, Est GFR (MDRD) Af Amer 87, Est GFR (MDRD) Non-Af 72, BUN/Creatinine Ratio 14.2, Glucose 308 H, Calcium 8.4 L 12/09/19 21:30: Urine Color Yellow, Urine Clarity Sl. Cloudy, Urine pH 6.0, Ur Specific [place] 1.015, Urine Protein 15 H, Urine Glucose (UA) 1000 H, Urine Ketones 5 H, Urine Occult Blood 150 H, Urine Nitrite Negative, Urine Bilirubin Negative, Urine Urobilinogen Normal, Ur Leukocyte Esterase 100 H, Urine RBC 0-5 SEEN, Urine WBC 25-50 SEEN, Ur Squamous Epith Cells 0 SEEN, Urine Bacteria RARE, Urine Mucus 0 SEEN Assessment/Plan All Active Problems (Last Reviewed 12/10/19 @ 04:[address] Frankie Baker MD) Hematoma (Acute) The patient is a 64 year old F with a history of Fibromyalgia; pulmonary embolism; HTN; and who had a cardiac cath on 12/09/2019 presenting with a swelling at the cath site of the right groin; and also with dysuria. Cardiac catheterization site hematoma. Emergent department doctor discussed the case with Dr. Bourgeois, cardiology who saw patient. Suellenbag recommended by cardiology. Frequent vascular checks by nurses. Repeat CBC. Received morphine IV at the emergency department for pain. PRN oxycodone ordered. Cardiology is following patient. Diabetes mellitus with uncontrolled blood glucose. Patient with hyperglycemia at the emergency department On home dapagliflozin; held. Glimepiride continued Accu-Chek with correction scale insulin ordered. Acute cystitis Review of emergency department labs showed abnormal urinalysis. Her home dapaglifozin,SGLT2 inhibitor increases her risk of getting cystitis. Urine culture is pending. Received ceftriaxone the emergency department Ceftriaxone continued. Hypertension Blood pressure is stable. Home metoprolol and lisinopril continued with parameters. DVT prophylaxis SCD ordered. OBSV E&M: 18096 Initial observation care L2
[2019-12-09 23:15] VITALS: BP 102/52; PULSE 79; RESP 12; TEMP 36.4; O2SAT 94
--- NOTE | 2019-12-09 23:27 | CON.PCM_ITS ---
Problem List (1) Hematoma Status: Acute (2) Mixed hyperlipidemia Status: Chronic (3) Essential hypertension Status: Chronic (4) Type 2 diabetes mellitus Status: Chronic Reason for Consult Date of Consultation: 12/09/19 History of Present Illness: The patient is a 64 year old white female who presented today for outpatient cardiac catheterization based upon concerns of chest discomfort concerning for angina pectoris superimposed upon hyperlipidemia, hypertension, diabetes mellitus, and a history of a remote pulmonary embolus (greater than 20 years ago). She has undergone evaluation with an exercise tolerance test. She states that took everything I had to do what she did. She had symptoms during it but had no obvious ECG changes during it. She also had a chest CT scan performed last month. She had no great vessel disease. She did have a pulmonary nodule which she states is going to be followed noninvasively at this time. Underwent diagnostic cardiac catheterization. Her left ventricular systolic function appeared to be normal with an estimated LVEF of 65%. Her coronary artery anatomy appeared to demonstrate angiographically normal-appearing coronary arteries. She was to continue risk factor modification medical therapy and have outpatient follow-up for noncardiovascular etiologies of her chest discomfort. She states that in the recovery area she was noted to have slight ecchymoses at her cardiac catheterization site. According to conversations with the cardiac catheterization team she did have slight ecchymoses at the cardiac catheterization site but no obvious hematoma. She has been up and ambulating without any change in her cardiac catheterization site. She was subsequently released home. She stated that she was doing well at home until this evening. She noted after she had been sitting for a while and stood up to walk across the room she felt an abrupt discomfort in her right inguinal area. She noted that that area started to appear enlarged as well as being very uncomfortable. Thus she presented back to the [facility] emergency department for further evaluation. There she was evaluated and found to have an area of ecchymoses as well as an area compatible with a hematoma. She underwent laboratory profile which demonstrated her hemoglobin to be 11.9. She also had an abdominal/pelvic CT scan with IV contrast. Per the report there were findings compatible with soft tissue changes but no obvious pseudoaneurysm and there was no report of extravasation of IV contrast indicative of ongoing hemorrhage. (Please see official report). Thus it was elected to have the patient be brought into the hospital for continued monitoring of her vital signs, cardiac catheterization site, and laboratory studies such as her H&H. At the same time the patient denied any ongoing acute issues of chest discomfort or difficulty breathing. There was no notation of palpitations. There is no report of near syncope or syncope. The patient was also evaluated in the emergency department. She was found to have evidence of an underlying urinary tract infection. Thus she was being started on antibiotic therapy. [] Past Medical History Allergies/Adverse Reactions: Allergies codeine Adverse Reaction (Severe, Verified 12/09/19 19:02) Nausea Penicillins Adverse Reaction (Unknown, Verified 12/09/19 19:02) Unknown Home Medications: Ambulatory Orders Medication Instructions Recorded aspirin 81 mg tablet,delayed 81 mg PO DAILY 12/01/19 release dapagliflozin 10 mg tablet 10 mg PO DAILY 12/01/19 glimepiride 4 mg tablet 4 mg PO DAILY 12/01/19 lisinopril 10 mg tablet 10 mg PO DAILY 12/01/19 metformin 1,000 mg tablet 1,000 mg PO BID 12/01/19 metoprolol succinate 50 mg 50 mg PO DAILY 12/01/19 tablet,extended release 24 hr rosuvastatin 5 mg tablet 5 mg PO DAILY 12/01/19 omeprazole 20 mg capsule,delayed 20 mg PO DAILY 12/04/19 release Past Medical History (Chronic Problems): Chronic Problems (Last Updated 12/01/19 @ 15:25 by Joyce Milton) Mixed hyperlipidemia (Chronic) Type 2 diabetes mellitus (Chronic) Essential hypertension (Chronic) Lives: Spouse/ Significant Other Smoking Status: Never smoker Alcohol: None Drugs: None Review of Systems - Review of Systems General: Denies: Fever, Night Sweats, Fatigue Cardiovascular: Reports: Shortness of Breath. Denies: Chest Discomfort, Orthopn ea, PND, Peripheral Edema, Palpitations, Lightheadedness, Dizziness, Near Syncope, Syncope Respiratory: Reports: Shortness of Breath. Denies: Cough, Sputum Production, Hemoptysis Gastrointestinal: Denies: Hematemesis, Hematochezia, Melena Genitourinary: Denies: Dysuria, Hematuria Muscoloskeletal: Reports: - - Right inguinal area: Ecchymoses/hematoma; tenderness to palpation Skin: Denies: Rash Subjectve: This is a 64-year-old white female who appears to be resting reasonably comfortably at the moment other than tenderness in her right inguinal area/right thigh area. Objective: Vital Signs Temp Pulse Resp BP Pulse Ox 97.5 F L 79 12 102/52 L 94 12/09/19 23:15 12/09/19 23:15 12/09/19 23:15 12/09/19 23:15 12/09/19 23:15 Oxygen Delivery Method Room Air Weight: 155 lb Body Mass Index (BMI) 31.3 General: Awake, Alert, Oriented x 3, Cooperative, No Acute Distress HEENT: Atraumatic, Normocephalic, PERRL, EOMI Oral: Moist Mucosa Neck: Supple, Good ROM, No JVD Lungs: Clear to auscultation Cardiovascular: Regular Rhythm, Normal S1, Normal S2 Vascular: No Carotid Bruits, Normal Femoral Pulses, - - Right femoral artery pulse: Palpable with no obvious bruits Abdomen: Bowel Sounds Present, Soft Extremities: No edema Musculoskeletal: Tenderness - Right inguinal area: Tenderness to palpation Neurological: No Focal Motor or Sensory Deficit Psych/Mental Status: Appropriate 12/09/19 20:05: WBC 9.5, RBC 4.16 L, Hgb 11.9 L, Hct 36.9 L, MCV 88.7, MCH 28.6, MCHC 32.2, Plt Count 201, MPV 11.8, Immature Gran % (Auto) 0.200, Neut % (Auto) 77.7 H, Lymph % (Auto) 14.0 L, [place] % (Auto) 6.9, Eos % (Auto) 0.8, Baso % (Auto) 0.4, Absolute Neuts (auto) 7.4, Nucleated RBC % 0 12/09/19 20:05: PT 13.0, INR 1.0, APTT 24.7 12/09/19 20:05: Sodium 142, Potassium 4.7, Chloride 112 H, Carbon Dioxide 24.0, Anion Gap 6, BUN 12, Creatinine 0.85, Est GFR (MDRD) Af Amer 87, Est GFR (MDRD) Non-Af 72, BUN/Creatinine Ratio 14.2, Glucose 308 H, Calcium 8.4 L 12/09/19 21:30: Urine Color Yellow, Urine Clarity Sl. Cloudy, Urine pH 6.0, Ur Specific [place] 1.015, Urine Protein 15 H, Urine Glucose (UA) 1000 H, Urine Ketones 5 H, Urine Occult Blood 150 H, Urine Nitrite Negative, Urine Bilirubin Negative, Urine Urobilinogen Normal, Ur Leukocyte Esterase 100 H, Urine RBC 0-5 SEEN, Urine WBC 25-50 SEEN Rhythm: Sinus rhythm ECHO: 12-08-2019 Left ventricular systolic function normal with an estimated LVEF 65% Trivial MR Mild TR Mild focal aortic valve thickening Unable to estimate RV systolic pressure Diastolic dysfunction considered indeterminant Stress Test: 10-17-2019 Stress Test Report Treadmill EKG report: Resting EKG: Normal sinus rhythm, normal axis, normal intervals, no evidence of previous myocardial infarction. Treadmill EKG: The patient exercised according to Jose Elias protocol for 6 minutes and 0 seconds achieving a maximum workload of 7.00 METS. Heart rate was initially 71 beats a minute and yvette to a max of 142 bpm which represents 89% of the maximal age-predicted heart rate. Resting blood pressure was 140/82, and yvette to a maximum of 168/86. Test was terminated due to attainment of target heart rate, dyspnea and chest discomfort. Conclusions: Normal, adequate, treadmill EKG. Negative for ischemia by EKG criteria. Patient did develop chest pain with no associated EKG changes. Average exercise capacity for age. Appropriate blood pressure response to exercise. Patient tolerate procedure well. Recommend clinical correlation or alternative mode of testing of corn occlusive disease and strongly suspected given the patient's chest discomfort during exercise. Cardiac Cath: 12-09-2019 CONCLUSIONS Elevated Left Ventricular End Diastolic Pressure Normal LV size, wall motion,and systolic function LVEF: by LV gram 65 % Normal coronary arteries RECOMMENDATIONS Risk factor modification Medical therapy CORONARY ANGIOGRAPHY DOMINANCE: Co- Dominant LEFT HEART ASSESSMENT Left Ventricular Ejection Fraction: by LV Gram 65 % Normal LV wall motion Elevated Left Ventricular End Diastolic Pressure LVEDP: 21 mmHg LEFT MAIN: Angiographically normal LEFT ANTERIOR DESCENDING ARTERY: Angiographically normal CIRCUMFLEX ARTERY: Angiographically normal RIGHT CORONARY ARTERY: Angiographically normal AORTIC ROOT: Angiographically normal Abdominal/pelvic CT scan: IMPRESSION: 1. Normal abdominal aorta and bilateral lower extremity run-off without a hemodynamically significant stenosis. 2. Stranding in the soft tissues of the right inguinal area with some cutaneous hematoma. There is no evidence of pseudoaneurysm. 3. Normal abdominal and pelvic contents. Assessment/Plan 1. Hematoma The patient has a post cardiac catheterization right inguinal area hematoma. This appeared to develop after the patient was home. She has been evaluated by the [facility] emergency department staff. This is included laboratory studies which demonstrated her hemoglobin to be 11.9. This has also included an abdominal/pelvic CTA which did not report any vascular concerns such as pseudoaneurysm or extravasation of IV contrast indicative of ongoing hemorrhagic issues. I did report findings compatible with a hematoma. This was located in the right thigh area. At the present time the patient does have visible evidence of right inguinal area and right thigh ecchymoses and hematoma. She is tender to the touch. She is going to be monitored. This will include following her vital signs, clinical status, and her H&H. She will remain without her antiplatelet therapy at this time including aspirin as well as her clopidogrel/Plavix therapy which was discontinued following her cardiac catheterization procedure earlier this day. As a precaution she will undergo type and cross. Her overall status and laboratory studies will be followed as to whether or not she will or will not need any PRBC transfusion. 2. Hyperlipidemia She should continue risk factor evaluation and care and medical therapy as deemed appropriate. 3. Hypertension Her blood pressure will need to be followed for any significant concerns of hypo-or hypertension. Her medications will be adjusted accordingly. 4. Diabetes mellitus She is being brought into the hospital under the care of internal medicine. Their assistance is most appreciated with respect her ongoing evaluation and care of her diabetes mellitus. Comment: The patient's case has been discussed at length with the patient, her spouse, and Dr. Hussein of the [facility] emergency department staff. This note was generated using a voice recognition system and there may be incorrect words, spelling or punctuation that were not noted when reviewing the office note prior to saving.
[2019-12-10] VITALS (21 sets, daily range): BP systolic 97–125; BP diastolic 51–65; PULSE 72–96; RESP 12–18; TEMP 36.4–37.1; O2SAT 94–98; BMI 32.8
[2019-12-10] MEDS: 0.9% Normal Saline 1,000 ML 75 ML IV (00:08)
[2019-12-10 00:30] LABS: Absolute Lymphocyte Count 1.84 X10^3/uL (0.83-4.51); Absolute Neutrophil Count 6.2 X10^3/uL (2.0-7.7); Basophil# 0.02 X10^3/uL; Basophil% 0.2 % (0-1); Eosinophil# 0.09 X10^3/uL; Hematocrit 34.5 % (37-47); Hemoglobin 11.2 g/dL (12.0-15.0); Lymphocyte # 1.84 X10^3/ul (4.0); Lymphocyte % 20.8 % (19-41); Mean Corp Hgb Conc 32.5 g/dL (32-36); Mean Corpuscular Hgb 29.1 pg (27.0-32.0); Mean Corpuscular Volume 89.6 fL (81-99); Mean Platelet Vol. 11.8 fl (6.2-12.0); Monocyte% 7.9 % (0-10); NRBC Flagged by Analyzer 0 % (0-5); Neutrophil # 6.15 X10^3/uL (2.7-7.7); Neutrophil % 69.8 % (47-70); Platelet Count 169 K/mm3 (150-450); RBC Distribution Width CV 13.6 % (11.6-14.6); RBC Distribution Width SD 43.9 fl (35.1-43.9); Red Blood Count 3.85 M/mm3 (4.2-5.4); White Blood Count 8.8 K/mm3 (4.4-11.0)
[2019-12-10] MEDS: oxyCODONE 5 MG Tablet PO ×3 (04:02→17:22)
[2019-12-10 04:11] LABS: Bedside Glucose 194 mg/dL (70-110)
[2019-12-10] MEDS: Insulin Lispro 100 UNIT/ML INSULN.PEN SC ×2 (06:58→11:50)
[2019-12-10 07:06] LABS: Bedside Glucose 217 mg/dL (70-110)
[2019-12-10 07:43] LABS: Anion Gap 2 (5-15); BUN 10 mg/dL (7-18); BUN/Creat Ratio 16.4 RATIO (10-20); Chloride 110 mmol/L (98-107); Creatinine, Serum 0.61 mg/dL (0.55-1.02); EST Glomerular Filtration Rate 106 mL/min (>60); Est Glom Filt Rate - Afr Amer 128 mL/min (>60); Estimated Creatinine Clearance 113.07 ml/min; Glucose 200 mg/dL (74-106); Potassium 4.2 mmol/L (3.5-5.1); Sodium Level 140 mmol/L (136-145)
[2019-12-10 08:23] LABS: Absolute Lymphocyte Count 1.91 X10^3/uL (0.83-4.51); Absolute Neutrophil Count 6.2 X10^3/uL (2.0-7.7); Basophil# 0.01 X10^3/uL; Basophil% 0.1 % (0-1); Eosinophil# 0.09 X10^3/uL; Hematocrit 34.3 % (37-47); Hemoglobin 10.9 g/dL (12.0-15.0); Lymphocyte # 1.91 X10^3/ul (4.0); Lymphocyte % 21.5 % (19-41); Mean Corp Hgb Conc 31.8 g/dL (32-36); Mean Corpuscular Hgb 28.9 pg (27.0-32.0); Mean Platelet Vol. 12.1 fl (6.2-12.0); Monocyte# 0.69 X10^3/uL; Monocyte% 7.8 % (0-10); NRBC Flagged by Analyzer 0 % (0-5); Neutrophil # 6.18 X10^3/uL (2.7-7.7); Neutrophil % 69.4 % (47-70); Platelet Count 176 K/mm3 (150-450); RBC Distribution Width CV 13.6 % (11.6-14.6); RBC Distribution Width SD 45.1 fl (35.1-43.9); Red Blood Count 3.77 M/mm3 (4.2-5.4); White Blood Count 8.9 K/mm3 (4.4-11.0)
--- NOTE | 2019-12-10 09:09 | PN_ITS ---
Patient Problems: Active and Suspected Problems (Last Reviewed 12/10/19 @ 04:[address] Frankie Baker MD) Hematoma (Acute) Subjective: Chief complaint: Follow-up after admission for right groin hematoma. Patient seen and examined. No acute events overnight. This morning, she complained of back spasm. Pain on the right groin is improving as well as the swelling. Denied chest pain or shortness of breath. Her vital signs are stable. - Physical Exam Vitals/I&O's: Vital Signs Temp Pulse Resp BP Pulse Ox 98.4 F 84 16 125/52 H 95 12/10/19 07:40 12/10/19 07:40 12/10/19 07:40 12/10/19 07:40 12/10/19 07:40 Oxygen Delivery Method Room Air Weight: 165 lb 2.02 oz Body Mass Index (BMI) 32.8 Intake and Output for Last 24 Hours 12/08/19 12/09/19 12/10/19 23:59 23:59 23:59 Intake Total 290 / 290 Output Total 400 / 400 Balance -110 / -110 General: Alert, Oriented x3, Cooperative, No apparent distress HEENT: Atraumatic, PERRLA, EOMI, Normocephalic Oral: Moist Mucosa, No Gingival or Mucosal Lesions/ Ulcerations Neck: Supple, No JVD, Negative Carotid Bruits, Trachea Midline, Thyroid Normal Size and Texture Lungs: Clear to auscultation, Normal air movement, No rhonchi, No wheeze, No rales Cardiovascular: Regular rate, Regular Rhythm, Normal S1, Normal S2 Abdomen: Bowel Sounds Present, Soft, Non Tender, Non-Distended, No Hepato- splenomegaly Extremities: No clubbing, No cyanosis, No edema, Peripheral Pulses Normal Skin: No rashes, No breakdown, - - Right groin: Diffuse mild swelling, bruises. Lymphatic: No Cervical, Supraclavicular, or Inguinal Adenopathy Neurological: Cranial nerves II-XII grossly intact, Neuro grossly intact Psych/Mental Status: Normal Affect, Appropriate, Alert and oriented to time, place, person, mood and affect Laboratory Results 12/09/19 20:05: WBC 9.5, RBC 4.16 L, Hgb 11.9 L, Hct 36.9 L, MCV 88.7, MCH 28.6, MCHC 32.2, RDW Std Deviation 43.8, RDW Coeff of [place] 13.6, Plt Count 201, MPV 11.8, Immature Gran % (Auto) 0.200, Neut % (Auto) 77.7 H, Lymph % (Auto) 14.0 L, [place] % (Auto) 6.9, Eos % (Auto) 0.8, Baso % (Auto) 0.4, Absolute Neuts (auto) 7.4, Absolute Lymphs (auto) 1.33, Nucleated RBC % 0 12/09/19 20:05: PT 13.0, INR 1.0, APTT 24.7 12/09/19 20:05: Sodium 142, Potassium 4.7, Chloride 112 H, Carbon Dioxide 24.0, Anion Gap 6, BUN 12, Creatinine 0.85, Estim Creat Clear Calc 76.17, Est GFR (MDR D) Af Amer 87, Est GFR (MDRD) Non-Af 72, BUN/Creatinine Ratio 14.2, Glucose 308 H, Calcium 8.4 L 12/09/19 21:30: Urine Color Yellow, Urine Clarity Sl. Cloudy, Urine pH 6.0, Ur Specific [place] 1.015, Urine Protein 15 H, Urine Glucose (UA) 1000 H, Urine Ketones 5 H, Urine Occult Blood 150 H, Urine Nitrite Negative, Urine Bilirubin Negative, Urine Urobilinogen Normal, Ur Leukocyte Esterase 100 H, Urine RBC 0-5 SEEN, Urine WBC 25-50 SEEN, Ur Squamous Epith Cells 0 SEEN, Urine Bacteria RARE, Urine Mucus 0 SEEN 12/10/19 00:05: Blood Type Cancelled, Antibody Screen Cancelled, Crossmatch See Detail 12/10/19 00:05: WBC 8.8, RBC 3.85 L, Hgb 11.2 L, Hct 34.5 L, MCV 89.6, MCH 29.1, MCHC 32.5, RDW Std Deviation 43.9, RDW Coeff of [place] 13.6, Plt Count 169, MPV 11.8, Immature Gran % (Auto) 0.300, Neut % (Auto) 69.8, Lymph % (Auto) 20.8, [place] % (Auto) 7.9, Eos % (Auto) 1.0, Baso % (Auto) 0.2, Absolute Neuts (auto) 6.2, Absolute Lymphs (auto) 1.84, Nucleated RBC % 0 12/10/19 02:35: Blood Type A NEGATIVE, Antibody Screen NEGATIVE, Crossmatch See Detail 12/10/19 04:05: POC Glucose 194 H 12/10/19 06:45: Sodium 140, Potassium 4.2, Chloride 110 H, Carbon Dioxide 28.0, Anion Gap 2 L, BUN 10, Creatinine 0.61, Estim Creat Clear Calc 113.07, Est GFR (MDRD) Af Amer 128, Est GFR (MDRD) Non-Af 106, BUN/Creatinine Ratio 16.4, Glucose 200 H, Calcium 8.0 L 12/10/19 06:45: WBC 8.9, RBC 3.77 L, Hgb 10.9 L, Hct 34.3 L, MCV 91.0, MCH 28.9, MCHC 31.8 L, RDW Std Deviation 45.1 H, RDW Coeff of [place] 13.6, Plt Count 176, MPV 12.1 H, Immature Gran % (Auto) 0.200, Neut % (Auto) 69.4, Lymph % (Auto) 21.5, [place] % (Auto) 7.8, Eos % (Auto) 1.0, Baso % (Auto) 0.1, Absolute Neuts (auto) 6.2, Absolute Lymphs (auto) 1.91, Nucleated RBC % 0 12/10/19 06:50: POC Glucose 217 H Current Medications Atorvastatin Calcium (Lipitor) 10 mg PO QHS [facility] Dextrose (D50w Syringe) 0 gm IV X1 PRN; Protocol PRN Reason: Hypoglycemia Glimepiride (Amaryl) 4 mg PO DAILYCM [facility] Glucagon () 1 mg IM .X1 PRN PRN Reason: Hypoglycemia Heparin Sodium (Beef Lung) (Heparin 500 Unit/5 Ml (100/Ml)) 500 unit IV UD PRN PRN Reason: HEPARIN FLUSH Sodium Chloride () 1,000 mls @ 75 mls/hr IV .[id number] [facility] Last Admin: 12/10/19 00:08 Dose: 75 mls/hr Documented by: Sodium Chloride () 250 mls @ 15 mls/hr IV .[id number] PRN PRN Reason: Saline Flush Sodium Chloride () 250 mls @ 15 mls/hr IV .[id number] PRN PRN Reason: Additional IVPB Infusion Ceftriaxone Sodium (Rocephin) 1 gm in 50 mls @ 100 mls/hr IV Q24H [facility] Insulin Human Lispro (Humalog Kwikpen (Bkc)) 0 unit SC ACHS & 3AM LAURA; Protocol Last Admin: 12/10/19 06:58 Dose: 4 units Documented by: Labetalol HCl (Trandate) 5 mg IV X1 PRN PRN Reason: SBP > 160 prior to sheath pull Stop: 12/11/19 23:23 Lisinopril (Zestril) 10 mg PO DAILY [facility] Metoprolol Succinate (Toprol Xl (Beta Danielle)) 50 mg PO DAILY [facility] Oxycodone HCl (Oxyir) 5 mg PO Q4H PRN PRN PRN Reason: Pain Score 6-10/10 Pantoprazole Sodium (Protonix) 20 mg PO DAILY [facility] Sodium Chloride () 10 - 40 ml IV UD PRN PRN Reason: SALINE FLUSH Medical Necessity - Tobacco Use Smoking Status: Never smoker Assessment/Plan All Active Problems (Last Reviewed 12/10/19 @ 04:[address] Frankie Baker MD) Hematoma (Acute) This is a 65 years old female patient admitted after she developed a right groin hematoma after she underwent cardiac catheterization on December 09, 2019 and she was admitted for observation. #1 right groin hematoma: At the cardiac catheterization site that was done on December 09, 2019. Swelling of the right groin is getting better, patient still having some pain. No evidence of bruit at the site. Admission hemoglobin was 11.9, came down to 11.2 and this morning, it is 10.9 g/dL. No evidence of active bleeding. Her vital signs are stable. Plan: Ambulate as tolerated, close monitoring, repeat H&H tomorrow morning. #2 acute blood loss anemia: Due to #1. Hemoglobin was normal 3 days ago, has been trending down but still above 10 g/dL. Today's hemoglobin is 10.9 g/dL. No evidence of active bleeding. No indication for transfusion. Platelet count and INR as well as pro time are normal. Plan to repeat H&H tomorrow morning. #3 acute cystitis: She is on IV Rocephin. She has been afebrile, no leukocytosis. Urine culture pending. #4 type 2 diabetes mellitus: Continue ADA diet, glimepiride, dapagliflozin and insulin sliding scale. #5 hypertension: Blood pressure stable, continue lisinopril and metoprolol. #6 hyperlipidemia: Continue statins. #7 DVT prophylaxis: No chemical prophylaxis because of the hematoma. This note was generated with Fan[employer] software. It may contain incorrect words, spelling, and punctuation that were not noted in checking the note before signing. OBSV E&M: [id number] Subsequent observation care L2
[2019-12-10] MEDS: Empagliflozin 25 MG Tablet PO (10:00)
[2019-12-10] MEDS: Lisinopril 10 MG Tablet PO (10:01)
[2019-12-10] MEDS: Pantoprazole Sodium 20 MG Tablet PO (10:01)
[2019-12-10] MEDS: Glimepiride 4 MG Tablet PO (10:01)
[2019-12-10] MEDS: Metoprolol(XL)Succ 50 MG Tablet PO (10:02)
--- NOTE | 2019-12-10 10:07 | PCM.PN.CARD ---
Subjectve: The patient is awake and alert. She has remained in bed since being admitted. She states she has been somewhat afraid to move. She notes since being in bed she feels as if she is developed back discomfort and muscle spasms in her back. She notes that her right inguinal area is wreath machine tender to the touch although potentially not as bad as it was when she first presented to the hospital. Objective: Vital Signs Temp Pulse Resp BP Pulse Ox 98.4 F 88 16 118/57 L 95 12/10/19 07:40 12/10/19 10:02 12/10/19 07:40 12/10/19 10:02 12/10/19 07:40 Oxygen Delivery Method Room Air Weight: 165 lb 2.02 oz Body Mass Index (BMI) 32.8 Intake and Output for Last 24 Hours 12/08/19 12/09/19 12/10/19 23:59 23:59 23:59 Intake Total 290 / 290 Output Total 400 / 400 Balance -110 / -110 General: Awake, Alert, Oriented x 3, Cooperative, No Acute Distress HEENT: Atraumatic, Normocephalic, PERRL, EOMI, Sclera Non Icteric Oral: Moist Mucosa Neck: Supple, Good ROM, No JVD Lungs: Clear to auscultation Cardiovascular: Regular Rhythm, Normal S1, Normal S2 Abdomen: Bowel Sounds Present, Soft Extremities: No edema Musculoskeletal: - - Right inguinal area: Positive ecchymoses; positive hematoma; positive tenderness to palpation Neurological: No Focal Motor or Sensory Deficit 12/09/19 20:05: WBC 9.5, RBC 4.16 L, Hgb 11.9 L, Hct 36.9 L, MCV 88.7, MCH 28.6, MCHC 32.2, Plt Count 201, MPV 11.8, Immature Gran % (Auto) 0.200, Neut % (Auto) 77.7 H, Lymph % (Auto) 14.0 L, [place] % (Auto) 6.9, Eos % (Auto) 0.8, Baso % (Auto) 0.4, Absolute Neuts (auto) 7.4, Nucleated RBC % 0 12/09/19 20:05: PT 13.0, INR 1.0, APTT 24.7 12/09/19 20:05: Sodium 142, Potassium 4.7, Chloride 112 H, Carbon Dioxide 24.0, Anion Gap 6, BUN 12, Creatinine 0.85, Est GFR (MDRD) Af Amer 87, Est GFR (MDRD) Non-Af 72, BUN/Creatinine Ratio 14.2, Glucose 308 H, Calcium 8.4 L 12/09/19 21:30: Urine Color Yellow, Urine Clarity Sl. Cloudy, Urine pH 6.0, Ur Specific [place] 1.015, Urine Protein 15 H, Urine Glucose (UA) 1000 H, Urine Ketones 5 H, Urine Occult Blood 150 H, Urine Nitrite Negative, Urine Bilirubin Negative, Urine Urobilinogen Normal, Ur Leukocyte Esterase 100 H, Urine RBC 0-5 SEEN, Urine WBC 25-50 SEEN 12/10/19 00:05: WBC 8.8, RBC 3.85 L, Hgb 11.2 L, Hct 34.5 L, MCV 89.6, MCH 29.1, MCHC 32.5, Plt Count 169, MPV 11.8, Immature Gran % (Auto) 0.300, Neut % (Auto) 69.8, Lymph % (Auto) 20.8, [place] % (Auto) 7.9, Eos % (Auto) 1.0, Baso % (Auto) 0.2, Absolute Neuts (auto) 6.2, Nucleated RBC % 0 12/10/19 06:45: Sodium 140, Potassium 4.2, Chloride 110 H, Carbon Dioxide 28.0, Anion Gap 2 L, BUN 10, Creatinine 0.61, Est GFR (MDRD) Af Amer 128, Est GFR (MDRD) Non-Af 106, BUN/Creatinine Ratio 16.4, Glucose 200 H, Calcium 8.0 L 12/10/19 06:45: WBC 8.9, RBC 3.77 L, Hgb 10.9 L, Hct 34.3 L, MCV 91.0, MCH 28.9, MCHC 31.8 L, Plt Count 176, MPV 12.1 H, Immature Gran % (Auto) 0.200, Neut % (Auto) 69.4, Lymph % (Auto) 21.5, [place] % (Auto) 7.8, Eos % (Auto) 1.0, Baso % (Auto) 0.1, Absolute Neuts (auto) 6.2, Nucleated RBC % 0 Rhythm: Sinus rhythm Medical Necessity - Tobacco Use Smoking Status: Never smoker Assessment/Plan 1. Hematoma The patient has a post cardiac catheterization right inguinal area hematoma. This appeared to develop after the patient was home. She has been evaluated by the [facility] emergency department staff. This is included laboratory studies which demonstrated her hemoglobin to be 11.9. Her hemoglobin has been followed. It was repeated at 11.2 and subsequently repeated at 10.9. This has also included an abdominal/pelvic CTA which did not report any vascular concerns such as pseudoaneurysm or extravasation of IV contrast indicative of ongoing hemorrhagic issues. I did report findings compatible with a hematoma. This was located in the right thigh area. At the present time the patient does have visible evidence of right inguinal area and right thigh ecchymoses and hematoma. She is tender to the touch. She is going to be monitored. This will include following her vital signs, clinical status, and her H&H. She will remain without her antiplatelet therapy at this time including aspirin as well as her clopidogrel/Plavix therapy which was discontinued following her cardiac catheterization procedure earlier this day. As a precaution she will undergo type and cross. Her overall status and laboratory studies will be followed as to whether or not she will or will not need any PRBC transfusion. 2. Hyperlipidemia She should continue risk factor evaluation and care and medical therapy as deemed appropriate. 3. Hypertension Her blood pressure will need to be followed for any significant concerns of hypo-or hypertension. Her medications will be adjusted accordingly. 4. Diabetes mellitus She is being brought into the hospital under the care of internal medicine. Their assistance is most appreciated with respect her ongoing evaluation and care of her diabetes mellitus. Comment: At the present time the patient will continue to be monitored. She will be allowed up out of bed, in the chair, and ambulation. During this time she will be monitored for any obvious change in her clinical status/physical examination status. Her hemoglobin will be followed. Thus far she has not needed additional noninvasive or invasive studies or PRBC transfusion. The patient's case has been discussed at length with the patient, her spouse, and Dr. Mckeon of the [facility] staff. His assistance with her ongoing evaluation and care is most appreciated. This note was generated using a voice recognition system and there may be incorrect words, spelling or punctuation that were not noted when reviewing the office note prior to saving.
[2019-12-10 11:50] LABS: Bedside Glucose 198 mg/dL (70-110)
[2019-12-10 17:26] LABS: Bedside Glucose 155 mg/dL (70-110)
[2019-12-10] MEDS: Atorvastatin Calcium 10 MG Tablet PO (21:57)
[2019-12-10] MEDS: Ceftriaxone 1 GM/50 ML BAG IV (22:17)
[2019-12-10 22:21] LABS: Bedside Glucose 137 mg/dL (70-110)
[2019-12-11] VITALS: PULSE 91
[2019-12-11 02:40] VITALS: BP 105/56; PULSE 76; RESP 18; TEMP 36.6; O2SAT 96
[2019-12-11 03:30] VITALS: PULSE 84
[2019-12-11 05:35] LABS: Hematocrit 34.6 % (37-47); Hemoglobin 10.9 g/dL (12.0-15.0)
[2019-12-11] MEDS: Insulin Lispro 100 UNIT/ML INSULN.PEN SC (06:53)
[2019-12-11 07:01] LABS: Bedside Glucose 161 mg/dL (70-110)
--- NOTE | 2019-12-11 08:11 | DCINST_ITS ---
- Discharge Diagnoses Current Active Problems: Current Active and Chronic Problems (Last Reviewed 12/10/19 @ 04:[address] Frankie Baker MD) Hematoma (Acute) You will use the following diet at home:: Calorie/Carbohydrate Controlled (specify 1200, 1400, etc) - 1800 FILOMENA., Cardiac Your food should be the consistency of: Regular Discharge Activity: Return to Normal Activity Weight Bearing Status: Weight bearing as tolerated Call your doctor if your incision/area has: Continuous Slow Oozing, Sudden Increased Bleeding, Increased Pain/ Swelling, Increased Redness Call your doctor if you observe: Fever of 101 or Higher, Shortness of breath, Dizziness, Fainting spells, Chest pain, Increased palpitations (irregular heartbeat), Uncontrolled pain Allergies/Adverse Reactions: Allergies codeine Adverse Reaction (Severe, Verified 12/09/19 19:02) Nausea Penicillins Adverse Reaction (Unknown, Verified 12/09/19 19:02) Unknown Medications to take at Discharge aspirin 81 mg tablet,delayed release 81 mg PO DAILY 12/01/19 dapagliflozin 10 mg tablet 10 mg PO DAILY 12/01/19 glimepiride 4 mg tablet 4 mg PO DAILY 12/01/19 lisinopril 10 mg tablet 10 mg PO DAILY 12/01/19 metformin 1,000 mg tablet 1,000 mg PO BID 12/01/19 metoprolol succinate 50 mg tablet,extended release 24 hr 50 mg PO DAILY 12/01/19 rosuvastatin 5 mg tablet 5 mg PO DAILY 12/01/19 omeprazole 20 mg capsule,delayed release 20 mg PO DAILY 12/04/19 Melatonin/Pyridoxine HCl (B6) [Melatonin Tr 10 mg Tablet] 1 ea PO QHS PRN 12/10/19 Primary Care Physician: Matthew Adan MD [Primary Care Provider] - Please follow up with your Primary Care Physician in: 2-3 WEEKS. Test Results: Test results from this visit will be discussed in further detail at your follow- up appointment, if applicable. Please Follow Up With: Matthew Bourgeois MD When: next week.
[2019-12-11 08:15] VITALS: PULSE 103
[2019-12-11 08:26] VITALS: BP 120/63; PULSE 105; RESP 16; TEMP 36.6; O2SAT 96
--- NOTE | 2019-12-11 08:26 | PN.CARD_ITS ---
Subjectve: The patient is awake and alert. She has now been up and ambulating out of bed, to the chair, and around her room. She states overall she feels improved. She notes her right inguinal area, although shredder tender peat, has improved compared to admission. She states she has not required additional analgesic therapy. She has had no other new acute complaints. Objective: Vital Signs Temp Pulse Resp BP Pulse Ox 97.9 F 103 H 18 105/56 L 96 12/11/19 02:40 12/11/19 08:15 12/11/19 02:40 12/11/19 02:40 12/11/19 02:40 Oxygen Delivery Method Room Air Weight: 165 lb 2.02 oz Body Mass Index (BMI) 32.8 Intake and Output for Last 24 Hours 12/09/19 12/10/19 12/11/19 23:59 23:59 23:59 Intake Total 2386.25 / 2626.25 360 / 360 Output Total 850 / 850 Balance 1536.25 / 1776.25 360 / 360 General: Awake, Alert, Oriented x 3, Cooperative, No Acute Distress HEENT: Atraumatic, Normocephalic, PERRL, EOMI, Sclera Non Icteric Neck: Supple, Good ROM Lungs: Clear to auscultation Cardiovascular: Regular Rhythm, Normal S1, Normal S2 Abdomen: Bowel Sounds Present, Soft Extremities: No edema Musculoskeletal: - - Right inguinal area: Positive ecchymoses; positive hematoma; tender to palpation Neurological: No Focal Motor or Sensory Deficit Psych/Mental Status: Appropriate 12/11/19 05:10: Hgb 10.9 L, Hct 34.6 L Rhythm: EKG: ECHO: Stress Test: Cardiac Cath: PCI: CT Surgery: Holter monitor: EPS: PPM: CXR: Chest CT Scan: Medical Necessity - Tobacco Use Smoking Status: Never smoker Assessment/Plan 1. Hematoma The patient has a post cardiac catheterization right inguinal area hematoma. This appeared to develop after the patient was home. She has been evaluated by the [facility] emergency department staff. This is included laboratory studies which demonstrated her hemoglobin to be 11.9. Her hemoglobin has been followed. It was repeated at 11.2 and subsequently repeated at 10.9. Repeat hemoglobin level remains at 10.9. This has also included an abdominal/pelvic CTA which did not report any vascular concerns such as pseudoaneurysm or extravasation of IV contrast indicative of ongoing hemorrhagic issues. I did report findings compatible with a hematoma. This was located in the right thigh area. At the present time the patient does have visible evidence of right inguinal area and right thigh ecchymoses and hematoma. She is tender to the touch. However, overall, she does appear to be improved and less tender to the touch compared to yesterday. 2. Hyperlipidemia She should continue risk factor evaluation and care and medical therapy as deemed appropriate. 3. Hypertension Her blood pressure will need to be followed for any significant concerns of hypo-or hypertension. Her medications will be adjusted accordingly. 4. Diabetes mellitus She is being brought into the hospital under the care of internal medicine. Their assistance is most appreciated with respect her ongoing evaluation and care of her diabetes mellitus. Comment: At the present time she appears to be symptomatically improved, hemodynamically stable, and her hemoglobin remained stable. She will continue without her antiplatelet therapy. She is going to be released home for continued outpatient follow-up as deemed appropriate. The patient's case has been discussed at length with the patient and Dr. Mckeon of the [facility] staff. His assistance with her ongoing evaluation and care is most appreciated. This note was generated using a voice recognition system and there may be incorrect words, spelling or punctuation that were not noted when reviewing the office note prior to saving.
[2019-12-11 09:23] VITALS: PULSE 105
[2019-12-11] MEDS: Pantoprazole Sodium 20 MG Tablet PO (09:23)
[2019-12-11] MEDS: Glimepiride 4 MG Tablet PO (09:23)
[2019-12-11] MEDS: Empagliflozin 25 MG Tablet PO (09:23)
[2019-12-11] MEDS: Metoprolol(XL)Succ 50 MG Tablet PO (09:23)
[2019-12-11] MEDS: Lisinopril 10 MG Tablet PO (09:24)
--- NOTE | 2019-12-11 09:51 | PHA.DC.MR ---
Pharmacy Service has performed discharge medication reconciliation for this patient. No new medications issued at time of discharge review. medications reviewed are from previously reported home medications. The patient's discharge medication list was reviewed for discrepancies and discrepancies were resolved. Home Medications aspirin 81 mg tablet,delayed release 81 mg PO DAILY 12/01/19 dapagliflozin 10 mg tablet 10 mg PO DAILY 12/01/19 glimepiride 4 mg tablet 4 mg PO DAILY 12/01/19 lisinopril 10 mg tablet 10 mg PO DAILY 12/01/19 metformin 1,000 mg tablet 1,000 mg PO BID 12/01/19 metoprolol succinate 50 mg tablet,extended release 24 hr 50 mg PO DAILY 12/01/19 rosuvastatin 5 mg tablet 5 mg PO DAILY 12/01/19 omeprazole 20 mg capsule,delayed release 20 mg PO DAILY 12/04/19 Melatonin/Pyridoxine HCl (B6) [Melatonin Tr 10 mg Tablet] 1 ea PO QHS PRN 12/10/19
--- NOTE | 2019-12-11 10:41 | DS.PCM_ITS ---
Discharge Date and Diagnosis Date of Admission: 12/09/19 Date of Discharge: 12/11/19 - Primary Discharge Diagnosis Acute Problems: #1 right groin hematoma at the heart cath site. #2 acute blood loss anemia. #3 Klebsiella oxytocin acute cystitis. - Secondary Discharge Diagnosis Chronic Problems: Chronic Problems (Last Reviewed 12/10/19 @ 04:[address] Frankie Baker MD) Mixed hyperlipidemia (Chronic) Palpitations (Chronic) Type 2 diabetes mellitus (Chronic) Essential hypertension (Chronic) Hospital Course and Treatment Imaging Results: Clinical Impression(s) from Imaging Studies Abdomen/Pelvis CTA 12/09/19 20:05 IMPRESSION: 1. Normal abdominal aorta and bilateral lower extremity run-off without a hemodynamically significant stenosis. 2. Stranding in the soft tissues of the right inguinal area with some cutaneous hematoma. There is no evidence of pseudoaneurysm. 3. Normal abdominal and pelvic contents. Electronically Signed: Kirk Lauren DO at 21:35 EDT Tel [phone], Service support , Dr. Bourgeois, cardiology. Operations: None Procedures: None Summary of Care Provided: Patient seen and examined on the day of discharge and appeared to be stable to be discharged home. Pain and swelling of the right foot improved. No other complaints. Her vital signs are stable. The patient is a 64 year old F admitted directly to the hospital after she developed right groin hematoma after she had cardiac catheterization on December 09, 2019. CTA abdomen and pelvis done and revealed normal abdominal aorta, normal bilateral lower extremity circulation, stranding in the soft tissues of the right inguinal region with cutaneous hematoma without evidence of pseudoaneurysm. She developed acute blood loss anemia due to subcutaneous hematoma. Baseline hemoglobin is normal and on admission, hemoglobin was 1 11.9 g/dL. Upon discharge hemoglobin was 10.9 g/dL. There was no indication for blood transfusion. And there was no active external bleeding. She was found to have acute cystitis which was treated with IV Rocephin. Urine culture revealed Klebsiella oxytocin. She was treated conservatively by monitoring of her right upper hematoma and blood work. Swelling of the right groin improved as well as pain. There was no evidence of active external bleeding. Patient discharged home in a stable condition, started back on her home medications without any changes, discharged on ciprofloxacin 500 mg p.o. twice daily for 5 days for UTI, plan to follow-up with cardiology next week, recommended follow-up with PCP in 2 to 3 weeks. - Physical Exam Vitals/I&O's: Vital Signs Temp Pulse Resp BP Pulse Ox 97.8 F 105 H 16 120/63 96 12/11/19 08:26 12/11/19 09:23 12/11/19 08:26 12/11/19 08:26 12/11/19 08:26 Oxygen Delivery Method Room Air Weight: 165 lb 2.02 oz Body Mass Index (BMI) 32.8 Intake and Output for Last 24 Hours 12/09/19 12/10/19 12/11/19 23:59 23:59 23:59 Intake Total 2386.25 / 2626.25 360 / 360 Output Total 850 / 850 Balance 1536.25 / 1776.25 360 / 360 General: Alert, Oriented x3, Cooperative, No apparent distress HEENT: Atraumatic, PERRLA, EOMI, Normocephalic Oral: Moist Mucosa, No Gingival or Mucosal Lesions/ Ulcerations Neck: Supple, No JVD, Negative Carotid Bruits, Trachea Midline, Thyroid Normal Size and Texture Lungs: Clear to auscultation, Normal air movement, No rhonchi, No wheeze, No rales Cardiovascular: Regular rate, Regular Rhythm, Normal S1, Normal S2, PMI Normal Abdomen: Bowel Sounds Present, Soft, Non Tender, Non-Distended, No Hepato- splenomegaly Extremities: No clubbing, No cyanosis, No edema Skin: No rashes, No breakdown, - - Right groin bruises. Lymphatic: No Cervical, Supraclavicular, or Inguinal Adenopathy Neurological: Cranial nerves II-XII grossly intact, Neuro grossly intact Psych/Mental Status: Normal Affect, Appropriate Microbiology Past 72 Hours 12/09/19 21:30 Urine, Clean Catch Urine Culture - Final Klebsiella oxytoca Laboratory Results 12/10/19 11:43: POC Glucose 198 H 12/10/19 17:18: POC Glucose 155 H 12/10/19 21:54: POC Glucose 137 H 12/11/19 05:10: Hgb 10.9 L, Hct 34.6 L 12/11/19 06:51: POC Glucose 161 H Discharge Activity: Return to Normal Activity Weight Bearing Status: Weight bearing as tolerated Call your doctor if your incision/area has: Continuous Slow Oozing, Sudden Increased Bleeding, Increased Pain/ Swelling, Increased Redness Call your doctor if you observe: Fever of 101 or Higher, Shortness of breath, Dizziness, Fainting spells, Chest pain, Increased palpitations (irregular heartbeat), Uncontrolled pain Home Medications: Medications to take at Discharge aspirin 81 mg tablet,delayed release 81 mg PO DAILY 12/01/19 dapagliflozin 10 mg tablet 10 mg PO DAILY 12/01/19 glimepiride 4 mg tablet 4 mg PO DAILY 12/01/19 lisinopril 10 mg tablet 10 mg PO DAILY 12/01/19 metformin 1,000 mg tablet 1,000 mg PO BID 12/01/19 metoprolol succinate 50 mg tablet,extended release 24 hr 50 mg PO DAILY 12/01/19 rosuvastatin 5 mg tablet 5 mg PO DAILY 12/01/19 omeprazole 20 mg capsule,delayed release 20 mg PO DAILY 12/04/19 Melatonin/Pyridoxine HCl (B6) [Melatonin Tr 10 mg Tablet] 1 ea PO QHS PRN 12/10/19 Primary Care Physician: Matthew Adan MD [Primary Care Provider] - Please follow up with your Primary Care Physician in: 2-3 WEEKS. Please Follow Up With: Matthew Bourgeois MD When: next week. Disposition: Home Minutes spent on discharge:: 28 Patient Condition:: Stable Medical Necessity - Tobacco Use Smoking Status: Never smoker Meaningful Use Info Meaningful Use Diagnoses (Choose all that apply): None applicable OBSV E&M: 53201 Observation care discharge
--- NOTE | 2019-12-11 10:47 | NURSING ---
Dr. Mckeon called. notifyed patient atb cipro was called in for patient for uti. this nurse called patient and informed her about cipro and to pick it up at her pharmacy
== END 2019-12-11 08:12 | disposition home or self-care (01) ==
LOC: ED 19:44 → PCU 12-10 00:51
PROVIDERS: Internal Medicine Cardiovascular Disease; Admitting Provider Hospitalist; Emergency Provider Emergency Medicine; PCP Family Medicine; Visit Provider Hospitalist
DX: L76.32 Postprocedural hematoma of skin and subcutaneous tissue following other procedure (principal); D62 Acute posthemorrhagic anemia; N30.00 Acute cystitis without hematuria; B96.89 Other specified bacterial agents as the cause of diseases classified elsewhere; E78.2 Mixed hyperlipidemia; I10 Essential (primary) hypertension; Z79.899 Other long term (current) drug therapy; Z79.82 Long term (current) use of aspirin; E11.65 Type 2 diabetes mellitus with hyperglycemia; Z86.711 Personal history of pulmonary embolism; M79.7 Fibromyalgia; Y84.0 Cardiac catheterization as the cause of abnormal reaction of the patient, or of later complication, without mention of misadventure at the time of the procedure; K58.9 Irritable bowel syndrome, unspecified; R91.1 Solitary pulmonary nodule
CPT/HCPCS: 36415; 75635; 80048; 81001; 82962; 85014; 85018; 85025; 85610; 85730; 86850; 86900; 86901; 86920; 86922; 87077; 87086; 87088; 87186; 96361; 96365; 96366; 96375; 99218; 99285; J7030; A4216; G0378; J2405

== ENCOUNTER 2019-12-15 08:21 | Emergency (ER) | payer OTHER, SELFPAY ==
[2019-12-10 00:41] VITALS: BMI 32.8
[2019-12-15 08:22] VITALS: BP 134/68; PULSE 74; RESP 16; TEMP 36.2; O2SAT 99; BMI 31.8
--- NOTE | 2019-12-15 08:29 | ED.RN ---
pt had a recent cardiac cath, swelling, pain, and discolorization to rt upper leg.
--- NOTE | 2019-12-15 08:39 | ART_ITS ---
Reason For Study: DECREASED PULSES Left Segmental Pressures Left brachial= 115mmHg. Left posterior tibial artery = 144mmHg. Left dorsalis pedis artery = 133mmHg. The left dorsalis pedis waveforms are triphasic. The left posterior tibial artery waveforms are triphasic. Right Segmental Pressures Right brachial= NOT TAKEN DUE TO IVmmHg. Right posterior tibial artery = 122mmHg. Right dorsalis pedis artery = 125mmHg. The right dorsalis pedis waveforms are triphasic. The right posterior tibial artery waveforms are triphasic. Indices The right resting ankle brachial index is 1.09. The right ankle brachial index by the dorsalis pedis is 1.09. The right ankle brachial index by the posterior tibial artery is 1.06. The left resting ankle brachial index is 1.25. The left ankle brachial index by the dorsalis pedis is 1.16. The left ankle brachial index by the posterior tibial artery is 1.25. Interpretation Summary Normal bilateral lower extremity ankle-brachial indices and Doppler waveforms at rest. Ordering Physician: Mando Navarro Referring Physician: Matthew dAan Performed By: Fernanda Mishra RVT, RDCS
--- NOTE | 2019-12-15 08:41 | ED.DCSUM_ITS ---
History of Present Illness Chief Complaint: Edema Informant: Patient Onset: Yesterday Context: Gradual Onset Timing: Continuous Current Severity: Moderate Maximum Severity: Moderate Narrative: The patient is a 64-year-old female that presents to the emergency department with right groin and thigh pain. The patient had heart catheterization on the of this month. Her postprocedure course was complicated by large hematoma. She had a CTA with runoffs which showed no evidence of pseudoaneurysm or arterial leak. She was kept overnight with a sandbag in place. She states she been doing well at home. On Sunday, she noticed that the area was getting more swollen. She was having more bruising into the thigh. She is still able to ambulate, but states that she has pain. She denies fever chills. She states sometimes, she will feel lightheaded if she gets up quickly. Prior similar symptoms: Yes Recent Illness/Hospitalization: Yes Past Medical History - Allergies and Home Meds Allergies/Adverse Reactions: Allergies codeine Adverse Reaction (Severe, Verified 12/15/19 08:21) Nausea Penicillins Adverse Reaction (Unknown, Verified 12/15/19 08:21) Unknown Primary Care Physician: Matthew Adan MD [Primary Care Provider] - Prior records reviewed: Yes Past Medical History: - - Remote pulmonary embolus, hypertension Surgical History: angioplasty Lives: With Family Smoking Status: Never smoker Review of Systems General: Denies: Chills, Fever, Sweats Eyes: Denies: Visual changes - bilaterally, Diplopia ENT: Denies: Rhinorrhea, Sore throat Cardiovascular: Denies: Chest pain, Palpitations Respiratory: Denies: Dyspnea, Cough, Dyspnea on exertion Gastrointestinal: Denies: Abdominal pain, Nausea, Vomiting, Diarrhea, Melena, Hematochezia Genitourinary: Denies: Dysuria, Hematuria, Frequency Musculoskeletal: Denies: Back pain, Extremity Pain Skin: Denies: Rash, Wounds Neurological: Denies: Headache, Weakness, Numbness Physical Exam Vital Signs/Narrative: Vital Signs Temp Pulse Resp BP Pulse Ox 12/15/19 08:22 97.2 F L 74 16 134/68 H 99 Inital Vital Signs reviewed: Yes General: Well nourished, Well developed, No Acute Distress Head: Normocephalic, Atraumatic Eyes: Perrl, EOMI ENT: Moist mucous membranes, No rhinorrhea Neck: Supple, Nontender Cardiovascular: Regular rate, Regular rhythm, No murmurs Respiratory: No distress, CTA bilaterally, Chest nontender Abdomen: Soft, Nontender, Nondistended, Normal bowel sounds Back: Nontender, Normal Inspection Extremities: Tenderness, Edema - Patient has large hematoma within the right groin. The pulses are normal in the lower extremity. Skin: Normal color, No rash Neurological: Alert, Oriented x3, Cranial nerves II-XII grossly intact, Normal Strength, Normal Sensation Psychological: Normal affect, Normal Mood Diagnostic/Tx/Re-eval Clinical Impression(s) from Imaging Studies Abdomen/Pelvis CTA 12/15/19 09:50 IMPRESSION: Resolving hematoma overlying the right groin as described. The remainder of the examination is unchanged. Electronically Signed: Ian Teresa, at 10:23 EDT , Service support , Abnormal Lab Results 12/15/19 12/15/19 12/15/19 08:55 08:55 08:55 WBC 5.9 RBC 3.67 L Hgb 10.6 L Hct 33.5 L MCV 91.3 MCH 28.9 MCHC 31.6 L RDW Std Deviation 45.1 H RDW Coeff of [place] 13.9 Plt Count 210 MPV 10.8 Immature Gran % (Auto) 0.700 Neut % (Auto) 65.0 Lymph % (Auto) 21.7 [place] % (Auto) 8.6 Eos % (Auto) 3.5 Baso % (Auto) 0.5 Absolute Neuts (auto) 3.9 Absolute Lymphs (auto) 1.29 Nucleated RBC % 0 Sodium 140 Potassium 4.3 Chloride 108 H Carbon Dioxide 27.0 Anion Gap 5 BUN 14 Creatinine 0.65 Estim Creat Clear Calc 101.53 Est GFR (MDRD) Af Amer 118 Est GFR (MDRD) Non-Af 97 BUN/Creatinine Ratio 21.4 H Glucose 181 H Calcium 8.7 Total Bilirubin 1.20 H AST 38 H ALT 44 Alkaline Phosphatase 74 Total Protein 7.1 Albumin 3.5 Globulin 3.6 Albumin/Globulin Ratio 1.0 Blood Type A NEGATIVE Antibody Screen NEGATIVE - Medical Decision Making The patient presents concerned that her hematoma has been increasing in size. She has normal pulses in the lower extremity. There is no cellulitic change. She does have a large hematoma in the right groin. I did obtain PVRs which were normal. Screening labs including hemoglobin were stable. I discussed the patient with Dr. Bourgeois who did her heart catheterization. We did elect to repeat the CTA to make sure there was no persistent leak, pseudoaneurysm, or changes given the patient's complaints. This was done. The hematoma is actually getting smaller and improving. The patient was counseled on these results. She will be discharged home. Impression 1. Post catheterization hematoma ED Disposition - Plan for ED Patient: Instructions: ED Cardiac Cath Post Bleed Hematom Referrals: Matthew Adan MD [Primary Care Provider] -
[2019-12-15 09:09] LABS: Absolute Lymphocyte Count 1.29 X10^3/uL (0.83-4.51); Absolute Neutrophil Count 3.9 X10^3/uL (2.0-7.7); Basophil# 0.03 X10^3/uL; Basophil% 0.5 % (0-1); Eosinophil# 0.21 X10^3/uL; Eosinophils% 3.5 % (0-5); Hematocrit 33.5 % (37-47); Hemoglobin 10.6 g/dL (12.0-15.0); Lymphocyte # 1.29 X10^3/ul (4.0); Lymphocyte % 21.7 % (19-41); Mean Corp Hgb Conc 31.6 g/dL (32-36); Mean Corpuscular Hgb 28.9 pg (27.0-32.0); Mean Corpuscular Volume 91.3 fL (81-99); Mean Platelet Vol. 10.8 fl (6.2-12.0); Monocyte# 0.51 X10^3/uL; Monocyte% 8.6 % (0-10); NRBC Flagged by Analyzer 0 % (0-5); Neutrophil # 3.86 X10^3/uL (2.7-7.7); Platelet Count 210 K/mm3 (150-450); RBC Distribution Width CV 13.9 % (11.6-14.6); RBC Distribution Width SD 45.1 fl (35.1-43.9); Red Blood Count 3.67 M/mm3 (4.2-5.4); White Blood Count 5.9 K/mm3 (4.4-11.0)
[2019-12-15 09:30] LABS: AST(SGOT) 38 U/L (15-37); Alanine Aminotransfer ALT/SGPT 44 U/L (13-56); Albumin, Serum 3.5 g/dL (3.2-5.0); Alkaline Phosphatase 74 U/L (45-117); Anion Gap 5 (5-15); BUN 14 mg/dL (7-18); BUN/Creat Ratio 21.4 RATIO (10-20); Calcium,Total 8.7 mg/dL (8.5-10.1); Chloride 108 mmol/L (98-107); Creatinine, Serum 0.65 mg/dL (0.55-1.02); EST Glomerular Filtration Rate 97 mL/min (>60); Est Glom Filt Rate - Afr Amer 118 mL/min (>60); Estimated Creatinine Clearance 101.53 ml/min; Globulin 3.6 g/dL (2.2-4.2); Glucose 181 mg/dL (74-106); Potassium 4.3 mmol/L (3.5-5.1); Protein, Total 7.1 g/dL (6.4-8.2); Sodium Level 140 mmol/L (136-145)
--- NOTE | 2019-12-15 09:50 | CT_ITS ---
STUDY: CT ABDOMEN AND PELVIS WITH CONTRAST REASON FOR EXAM: Female, 64 years old. RECURRENT HEMATOMA, S/P CATH RADIATION DOSAGE (If Supplied By Facility): CTDIvol = ( 24.57 ) mGy, DLP = ( 1057.32 ) mGycm TECHNIQUE: Transaxial images were obtained from the dome of the diaphragm to the symphysis pubis without oral contrast. 100 ML ISOVUE 370 was administered. Sagittal and coronal images were reconstructed. Individualized dose optimization techniques were used for this CT. COMPARISON: Comparison is made with prior examination dated 12-09-19. FINDINGS: Stable mild increased markings at the lung bases suggestive of mild scarring and/or atelectasis. The visualized portions of the heart are within normal limits. There is decreased attenuation of the liver consistent with steatosis. Focal calcification along the anterior aspect of the right lobe of the liver superiorly. This is unchanged. There are surgical clips in the gallbladder fossa consistent with a prior cholecystectomy. Normal spleen. Normal pancreas. Normal bilateral adrenal glands. Normal right kidney. Normal left kidney. Normal visualized stomach. Normal small intestine. Normal colon. The appendix is visualized and appears normal. Normal abdominal aorta. Normal inferior vena cava. Normal retroperitoneum. Normal urinary bladder. With again, there is evidence of increased markings in the subcutaneous fat overlying the right groin with extension to the proximal right upper leg. This as improved. There is evidence of a persistent 7.6 cm x 2.7 cm hematoma at the puncture site in the right groin. This has decreased in size as compared to prior study. There is no evidence of pseudoaneurysm. Normal osseous structures. CT/CT ANGIO ABD&PEL W/O&W/DYE IMPRESSION: Resolving hematoma overlying the right groin as described. The remainder of the examination is unchanged. Electronically Signed: Ian Moore, at 10:23 EDT , Service support ,
[2019-12-15 10:46] VITALS: BP 114/65; PULSE 65; RESP 18; O2SAT 98
== END 2019-12-15 10:46 | disposition home or self-care (01) ==
PROVIDERS: Emergency Provider Emergency Medicine; PCP Family Medicine
DX: L76.32 Postprocedural hematoma of skin and subcutaneous tissue following other procedure (principal)
CPT/HCPCS: 74174; 80053; 85025; 86850; 86900; 86901; 93922; 99283; J7030; Q9967

== ENCOUNTER → 2020-01-08 08:49 | Outpatient (CLI) | payer OTHER, SELFPAY ==
[2020-01-02 15:30] VITALS: BMI 31.8
[2020-01-08 10:03] LABS: Anion Gap 5 (5-15); BUN 14 mg/dL (7-18); BUN/Creat Ratio 22.6 RATIO (10-20); Calcium,Total 8.9 mg/dL (8.5-10.1); Chloride 108 mmol/L (98-107); Cholesterol 139 mg/dL (200); Creatinine, Serum 0.62 mg/dL (0.55-1.02); EST Glomerular Filtration Rate 104 mL/min (>60); Est Glom Filt Rate - Afr Amer 125 mL/min (>60); Glucose 167 mg/dL (74-106); High Density Lipoprotein 54 mg/dL; Sodium Level 141 mmol/L (136-145); Triglycerides 202 mg/dL; Very Low Density Lipoprotein 40 mg/dL (5-40)
[2020-01-08 10:20] LABS: Hemoglobin A1c 6.8 % (3.8-5.6)
== END ==
PROVIDERS: PCP Family Medicine; Referring Provider Family Medicine; Visit Provider Family Medicine
DX: E78.5 Hyperlipidemia, unspecified (principal); E11.9 Type 2 diabetes mellitus without complications
CPT/HCPCS: 36415; 80048; 80061; 83036

== ENCOUNTER → 2020-05-03 09:22 | Outpatient (CLI) | payer OTHER, SELFPAY ==
[2020-04-26 13:12] VITALS: BMI 32.3
== END ==
PROVIDERS: PCP Family Medicine; Referring Provider Internal Medicine Cardiovascular Disease; Visit Provider Internal Medicine Cardiovascular Disease
DX: R00.2 Palpitations (principal); E78.2 Mixed hyperlipidemia; I10 Essential (primary) hypertension
CPT/HCPCS: 93225; 93226

== ENCOUNTER → 2020-07-15 09:08 | Outpatient (CLI) | payer OTHER, SELFPAY ==
[2020-04-26 13:12] VITALS: BMI 32.3
[2020-07-15 10:50] LABS: Anion Gap 6 (5-15); BUN 14 mg/dL (7-18); BUN/Creat Ratio 22.9 RATIO (10-20); Calcium,Total 8.9 mg/dL (8.5-10.1); Chloride 109 mmol/L (98-107); Cholesterol 146 mg/dL (200); Creatinine, Serum 0.61 mg/dL (0.55-1.02); EST Glomerular Filtration Rate 105 mL/min (>60); Est Glom Filt Rate - Afr Amer 127 mL/min (>60); Glucose 158 mg/dL (74-106); High Density Lipoprotein 57 mg/dL; Potassium 3.9 mmol/L (3.5-5.1); Sodium Level 143 mmol/L (136-145); Triglycerides 142 mg/dL; Very Low Density Lipoprotein 28 mg/dL (5-40)
== END ==
PROVIDERS: PCP Family Medicine; Referring Provider Family Medicine; Visit Provider Family Medicine
DX: E78.5 Hyperlipidemia, unspecified (principal); E11.9 Type 2 diabetes mellitus without complications
CPT/HCPCS: 36415; 80048; 80061

== ENCOUNTER → 2020-07-19 12:32 | Outpatient (CLI) | payer OTHER, SELFPAY ==
[2020-04-26 13:12] VITALS: BMI 32.3
--- NOTE | 2020-07-19 12:34 | BI_ITS ---
MAMMOGRAPHY - BILATERAL SCREENING REASON FOR EXAM: Female, 65 years old. Routine annual screening examination. PERTINENT HISTORY: Aunt with breast cancer. TECHNIQUE: Digital bilateral breast ramya (3D mammographic acquisition) in the CC and MLO projections. 2-D mediolateral oblique (MLO) and craniocaudad (CC) views of both breasts were obtained. CAD: Full Field Digital Mammography with Computer Added Detection was performed. COMPARISON: Comparison is made with prior study dated 12/06/2018. FINDINGS: Breast Composition: There are scattered areas of fibroglandular density. There are no dominant masses or suspicious calcifications. Stable small benign-appearing bilateral axillary nodes. No other significant abnormalities are identified. There has been no significant change since the prior study. BI/SCRN MAMM (CAD)W/RAMYA BILAT IMPRESSION: Stable bilateral screening mammogram. Yearly follow-up mammogram recommended. (A) ASSESSMENT CATEGORY: BIRADS Category 2: Benign. A letter regarding these results will be sent to the patient by the facility within 30 days. Approximately 10% of breast cancers are not detected by mammography. A normal mammogram should not delay biopsy of a clinically suspicious abnormality. [id number] Electronically Signed: Ian Moore MD at 13:28 EST , Service support ,
== END ==
PROVIDERS: PCP Family Medicine; Referring Provider Family Medicine; Visit Provider Family Medicine
DX: Z12.31 Encounter for screening mammogram for malignant neoplasm of breast (principal)
CPT/HCPCS: 77063; 77067

== ENCOUNTER → 2020-12-08 17:30 | Outpatient (CLI) | payer OTHER, SELFPAY ==
[2020-04-26 13:12] VITALS: BMI 32.3
== END ==
PROVIDERS: PCP Family Medicine; Referring Provider Family Medicine; Visit Provider Family Medicine
DX: N39.0 Urinary tract infection, site not specified (principal)
CPT/HCPCS: 87086; 87088

== ENCOUNTER → 2021-03-09 09:08 | Outpatient (CLI) | payer OTHER, SELFPAY ==
[2021-03-09 10:34] LABS: Microalbumin,Random Urine 47.1 mg/L (NO RANGE EST.)
[2021-03-09 10:44] LABS: AST(SGOT) 53 U/L (15-37); Alanine Aminotransfer ALT/SGPT 65 U/L (13-56); Albumin, Serum 3.6 g/dL (3.2-5.0); Alkaline Phosphatase 86 U/L (45-117); Anion Gap 8 (5-15); BUN 11 mg/dL (7-18); BUN/Creat Ratio 18.9 RATIO (10-20); Bilirubin, Direct 0.28 mg/dL (0.00-0.30); Calcium,Total 8.8 mg/dL (8.5-10.1); Chloride 108 mmol/L (98-107); Cholesterol 130 mg/dL (200); Creatinine, Serum 0.58 mg/dL (0.55-1.02); EST Glomerular Filtration Rate 111 mL/min (>60); Est Glom Filt Rate - Afr Amer 134 mL/min (>60); Globulin 3.1 g/dL (2.2-4.2); Glucose 232 mg/dL (74-106); High Density Lipoprotein 46 mg/dL; Potassium 3.9 mmol/L (3.5-5.1); Protein, Total 6.7 g/dL (6.4-8.2); Sodium Level 142 mmol/L (136-145); Triglycerides 186 mg/dL; Very Low Density Lipoprotein 37 mg/dL (5-40)
[2021-03-09 14:46] LABS: Hemoglobin A1c 8.1 % (3.8-5.6)
== END ==
PROVIDERS: PCP Family Medicine; Referring Provider Family Medicine; Visit Provider Family Medicine
DX: E11.65 Type 2 diabetes mellitus with hyperglycemia (principal)
CPT/HCPCS: 36415; 80048; 80061; 80076; 82043; 82570; 83036

== ENCOUNTER → 2021-10-07 | Outpatient (CLI) | payer OTHER, SELFPAY ==
[2021-10-07 12:49] LABS: Anion Gap 8 (5-15); BUN 13 mg/dL (7-18); BUN/Creat Ratio 19.3 RATIO (10-20); Calcium,Total 9.4 mg/dL (8.5-10.1); Chloride 104 mmol/L (98-107); Creatinine, Serum 0.68 mg/dL (0.55-1.02); EST Glomerular Filtration Rate 93 mL/min (>60); Est Glom Filt Rate - Afr Amer 113 mL/min (>60); Glucose 178 mg/dL (74-106); Potassium 4.4 mmol/L (3.5-5.1); Sodium Level 139 mmol/L (136-145)
== END | disposition home or self-care (01) ==
LOC: MFPLAB 11:02
PROVIDERS: PCP Family Medicine; Referring Provider Family Medicine; Visit Provider Family Medicine
DX: E11.65 Type 2 diabetes mellitus with hyperglycemia (principal)
CPT/HCPCS: 36415; 80048

== ENCOUNTER 2022-02-03 20:57 | Inpatient (IN) | payer OTHER, SELFPAY ==
[2022-02-03 20:57] VITALS: BP 188/102; PULSE 97; RESP 18; TEMP 36.3; O2SAT 96; BMI 30.4
--- NOTE | 2022-02-03 21:08 | CT_ITS ---
STUDY: CT ABDOMEN AND PELVIS WITH CONTRAST REASON FOR EXAM: Female, 66 years old. Pain RADIATION DOSAGE (If Supplied By Facility): CTDIvol = ( 14.41 ) mGy, DLP = ( 913.89 ) mGycm TECHNIQUE: Transaxial images were obtained from the dome of the diaphragm to the symphysis pubis without oral contrast. IV 100mL Isovue-300 was administered. Sagittal and coronal images were reconstructed. Individualized dose optimization techniques were used for this CT. COMPARISON: None. FINDINGS: The visualized lung bases are unremarkable. The visualized portions of the heart are within normal limits. Normal liver. There are surgical clips in the gallbladder fossa consistent with a prior cholecystectomy. Normal spleen. Normal pancreas. Normal bilateral adrenal glands. Normal right kidney. Normal left kidney. Moderate gastric distention. Mildly dilated air-filled duodenum and jejunum with decompressed ileum consistent with a mild partial small bowel obstruction. However, the transition point is not clearly identified. Normal colon. The appendix is visualized and appears normal. Normal abdominal aorta. Normal inferior vena cava. Normal retroperitoneum. Normal urinary bladder. Normal abdominal wall. Normal osseous structures. CT/Abdomen/Pelvis W IV Cont ONLY IMPRESSION: Mild partial small bowel obstruction. Electronically Signed: José Manuel Lake MD at 22:47 EDT ,
--- NOTE | 2022-02-03 21:09 | EDS_ITS ---
HPI HPI - GI History of Present Illness Chief Complaint: Abd Pain Narrative Narrative: Patient with past medical history of irritable bowel syndrome presents with left upper quadrant abdominal pain that she has had since 230 this evening/afternoon. Is been ongoing constantly for approximately 7 hours. She states she has a loop of bowel that gets irritated and blocked up. She is nauseated but has not vomited. No fevers or chills. She has constant pain in this area. She usually takes dicyclomine for when this happens, but it did not relieve her symptoms today. She states there are times when she will get this abdominal pain daily, but it will resolve not return for few weeks. She had 2 normal bowel movements today. Past surgical history does include remote cholecystectomy, and remote bilateral tubal ligation. [facility] Medical History Essential hypertension Fibromyalgia IBS (irritable bowel syndrome) Mixed hyperlipidemia REGINA on CPAP Premature atrial contraction Pulmonary embolism Type 2 diabetes mellitus Home Medications aspirin 81 mg tablet,delayed release (Adult Low Dose Aspirin) 81 mg PO DAILY heart health 12/01/19 [History Last Taken 12/09/19 08:00 81 mg] metformin 1,000 mg tablet 1,000 mg PO BID DM 12/01/19 [History Last Taken 12/08/19] metoprolol succinate 50 mg tablet,extended release 24 hr 50 mg PO DAILY BP 12/01/19 [History Last Taken 12/09/19 08:00 50 mg] rosuvastatin 5 mg tablet 5 mg PO DAILY cholesterol 12/01/19 [History Last Taken 12/08/19 22:00 5 mg] omeprazole 20 mg capsule,delayed release 20 mg PO DAILY GERD 12/04/19 [History Last Taken 12/09/19 08:00 20 mg] melatonin 10 mg tablet 20 mg PO HS PRN 04/26/20 [History Last Taken Unknown] dulaglutide 3 mg/0.5 mL subcutaneous pen injector (Trulicity) 3 mg subcut QWEEK 01/14/21 [History Last Taken Unknown] lisinopril 20 mg tablet 20 mg PO DAILY BP #90 tabs 04/11/21 [Rx Last Taken Unkn own] biotin 2,500 mcg capsule 5 mg PO DAILY 01/16/22 [History Last Taken Unknown] cetirizine 10 mg tablet (Zyrtec) 10 mg PO DAILY PRN 01/16/22 [History Last Taken Unknown] cholecalciferol (vitamin D3) 25 mcg (1,000 unit) tablet 25 mcg PO DAILY 01/16/22 [History Last Taken Unknown] dicyclomine 20 mg tablet 20 mg PO BID 01/16/22 [History Last Taken Unknown] glimepiride 4 mg tablet 6 mg PO .COMPLEX DM 01/16/22 [History Last Taken Unknown] insulin glargine 100 unit/mL (3 mL) subcutaneous pen (Basaglar KwikPen U-100 Insulin) 20 unit subcut QAM 01/16/22 [History Last Taken Unknown] Allergy/AdvReac Type Severity Reaction Status Date / Time codeine AdvReac Severe Nausea Verified 02/03/22 20:59 Penicillins AdvReac Unknown Unknown Verified 02/03/22 20:59 Family History Mother Myocardial infarction Brother Diabetes Uncle Myocardial infarction Uncle Myocardial infarction Surgical History History of bladder surgery History of carpal tunnel surgery History of cholecystectomy History of left heart catheterization (LHC) (~12/09/19) Social History Smoking Status: Never smoker alcohol intake: never substance use type: does not use caffeine: Yes Type: coffee Number of servings: 1 and tea ROS ROS ED ROS Narrative Constitutional: No fever, no chills. HEENT: No sore throat. No neck pain. No loss of vision. No rhinorrhea. Cardiovascular: No chest pain. No palpitations. No pedal edema. Respiratory: No cough, no shortness of breath. Abdominal: Positive left upper quadrant abdominal pain. Positive nausea. No vomiting. Genitourinary: No dysuria. No hematuria. Musculoskeletal: No myalgias. No arthralgias. Neurologic: No headaches. No dizziness. No lightheadedness. Skin: No rash. No change in color. Psychiatric: No depression. No anxiety. EXAM Physical Exam Narrative Exam Narrative: Afebrile. Vital signs noted. HEENT: Normocephalic. Atraumatic. PERRL, EOMI. Neck soft and supple. No point tenderness or step off. Cardiovascular: Regular rate and rhythm. No murmurs, rubs, or gallops appreciated. Respiratory: No tachypnea. Lungs clear to auscultation bilaterally. Gastrointestinal: Abdomen soft, tenderness to palpation in left upper quadrant of abdomen., with normoactive to hyperactive bowel sounds. No rebound or guarding. Neurological: Awake. Alert. Nonfocal, nonlateralizing. Skin: No rash. Normal color. No pallor. Musculoskeletal: No pedal edema. Full range of motion extremities. Const Vital Signs: 02/03/22 20:57 Temperature 97.3 F L Temperature Source Temporal Pulse Rate 97 Respiratory Rate 18 Blood Pressure 188/102 H Blood Pressure Mean 130 Pulse Ox 96 Oxygen Delivery Method Room Air MDM MDM MDM Narrative Medical decision making narrative: Comprehensive work-up was pursued. Concern is for bowel obstruction. She was administered morphine and ondansetron along with a normal saline bolus. CBC shows normal white count of 7.9 with hemoglobin stable at 13.5, hematocrit 42.1 with normal platelet count of 179. CMP shows glucose elevated at 196 with a normal anion gap of 11, otherwise unremarkable except for AST at 54 and ALT at 59. Lipase is slightly elevated at 417. CT of the abdomen and pelvis with IV contrast shows moderate gastric distention along with duodenal and jejunal dilation. There is collapsed ileum. Transition point is not well-defined. Regardless, given her diagnosis of partial small bowel obstruction NG tube will be inserted. I discussed the patient with Dr. Hahn with surgery. Patient will be admitted to the medical/surgical floor in stable condition. Lab Data Attestation: I reviewed the patient's lab results. Labs: Laboratory Results - last 24 hr 02/03/22 02/03/22 21:16 21:16 WBC 7.9 RBC 4.78 Hgb 13.5 Hct 42.1 MCV 88.1 MCH 28.2 MCHC 32.1 RDW Std Deviation 43.0 RDW Coeff of [place] 13.4 Plt Count 179 MPV 11.9 Immature Gran % (Auto) 0.400 Neut % (Auto) 69.7 Lymph % (Auto) 19.9 [place] % (Auto) 6.3 Eos % (Auto) 3.3 Baso % (Auto) 0.4 Absolute Neuts (auto) 5.5 Absolute Lymphs (auto) 1.57 Nucleated RBC % 0 Sodium 141 Potassium 4.6 Chloride 107 Carbon Dioxide 23.0 Anion Gap 11 BUN 16 Creatinine 0.58 Estim Creat Clear Calc 70.39 Est GFR (MDRD) Af Amer 133 Est GFR (MDRD) Non-Af 110 BUN/Creatinine Ratio 27.4 H Glucose 196 H Calcium 9.9 Total Bilirubin 0.70 AST 54 H ALT 59 H Alkaline Phosphatase 89 Total Protein 7.7 Albumin 3.9 Globulin 3.8 Albumin/Globulin Ratio 1.0 Lipase 417 H Radiography Diagnostic Testing: Clinical Impression(s) from Imaging Studies Abdomen/Pelvis CT 02/03/22 21:08 IMPRESSION: Mild partial small bowel obstruction. Electronically Signed: José Manuel Lake MD at 22:47 EDT , Discharge Plan Dx/Rx/DC Orders Clinical Impression: Partial small bowel obstruction, Abdominal pain, Nausea, Hypertension Disposition Disposition: Acute Care Hospital [facility]
[2022-02-03 21:41] LABS: Absolute Lymphocyte Count 1.57 X10^3/uL (0.83-4.51); Absolute Neutrophil Count 5.5 X10^3/uL (2.0-7.7); Basophil# 0.03 X10^3/uL; Basophil% 0.4 % (0-1); Eosinophil# 0.26 X10^3/uL; Eosinophils% 3.3 % (0-5); Hematocrit 42.1 % (37-47); Hemoglobin 13.5 g/dL (12.0-15.0); Lymphocyte # 1.57 X10^3/ul (0.83-4.51); Lymphocyte % 19.9 % (19-41); Mean Corp Hgb Conc 32.1 g/dL (32-36); Mean Corpuscular Hgb 28.2 pg (27.0-32.0); Mean Corpuscular Volume 88.1 fL (81-99); Mean Platelet Vol. 11.9 fl (6.2-12.0); Monocyte% 6.3 % (0-10); NRBC Flagged by Analyzer 0 % (0-5); Neutrophil # 5.51 X10^3/uL (2.7-7.7); Neutrophil % 69.7 % (47-70); Platelet Count 179 K/mm3 (150-450); RBC Distribution Width CV 13.4 % (11.6-14.6); Red Blood Count 4.78 M/mm3 (4.2-5.4); White Blood Count 7.9 K/mm3 (4.4-11.0)
[2022-02-03] MEDS: 0.9% Normal Saline 1,000 ML 1000 ML IV (21:49)
[2022-02-03] MEDS: Ondansetron 4 MG/2 ML Vial IV (21:50)
[2022-02-03] MEDS: Morphine 4 MG/ML Syringe IV (21:50)
[2022-02-03 22:00] LABS: AST(SGOT) 54 U/L (15-37); Alanine Aminotransfer ALT/SGPT 59 U/L (13-56); Albumin, Serum 3.9 g/dL (3.2-5.0); Alkaline Phosphatase 89 U/L (45-117); Anion Gap 11 (5-15); BUN 16 mg/dL (7-18); BUN/Creat Ratio 27.4 RATIO (10-20); Calcium,Total 9.9 mg/dL (8.5-10.1); Chloride 107 mmol/L (98-107); Creatinine, Serum 0.58 mg/dL (0.55-1.02); EST Glomerular Filtration Rate 110 mL/min (>60); Est Glom Filt Rate - Afr Amer 133 mL/min (>60); Estimated Creatinine Clearance 70.39 ml/min; Globulin 3.8 g/dL (2.2-4.2); Glucose 196 mg/dL (74-106); Lipase 417 U/L (73-393); Potassium 4.6 mmol/L (3.5-5.1); Protein, Total 7.7 g/dL (6.4-8.2); Sodium Level 141 mmol/L (136-145)
[2022-02-03] MEDS: Oxymetazoline 0.05% 1 SPRAY SPRAY.BTL 2 SPRAY NASAL (23:03)
--- NOTE | 2022-02-03 23:10 | RAD_ITS ---
STUDY: X-RAY - ABDOMEN/PELVIS REASON FOR EXAM: Female, 66 years old. partial small bowel obstruction -- KUB with both diaphragms for NG/OG Verification TECHNIQUE: Single AP view of the abdomen / pelvis. COMPARISON: None. FINDINGS: Nasogastric tube coiled in left upper quadrant likely in the body the stomach. Multiple loops of mildly dilated air-filled small bowel consistent with a partial small bowel obstruction. The visualized liver, spleen and kidneys are grossly normal in size and morphology. Normal soft tissue structures. Normal visualized osseous structures. RAD/Abdomen Single View (Portable) IMPRESSION: 1. Nasogastric tube coiled in left upper quadrant likely in the body the stomach. 2. Mild partial small bowel obstruction. Electronically Signed: José Manuel Lake MD at 23:32 EDT ,
--- NOTE | 2022-02-03 23:23 | RAD_ITS ---
STUDY: X-RAY - ABDOMEN/PELVIS REASON FOR EXAM: Female, 66 years old. NG TUBE PLACEMENT #2 TECHNIQUE: Single AP view of the abdomen / pelvis. COMPARISON: None. FINDINGS: Nasogastric tube with the tip in left upper quadrant likely in the body the stomach. No change in multiple loops of mildly dilated air-filled small bowel consistent with a partial small bowel obstruction. The visualized liver, spleen and kidneys are grossly normal in size and morphology. Normal soft tissue structures. Normal visualized osseous structures. RAD/Abdomen Single View (Portable) IMPRESSION: 1. Nasogastric tube with the tip in the left upper quadrant likely in the body the stomach. 2. Mild partial small bowel obstruction. Electronically Signed: José Manuel Lake MD at 23:33 EDT ,
[2022-02-03 23:24] VITALS: BP 183/88; PULSE 86; RESP 18; TEMP 36.8; O2SAT 93
--- NOTE | 2022-02-03 23:26 | HP.PCM.SX_ITS ---
HPI - General General Date of Admission: 02/03/22 HPI Narrative REENA LAWRENCE, is a 66 F who presents with pain and nausea. This started this afternoon. Pain is in the left upper quadrant mostly. Patient does report she is passing flatus and had a bowel movement today. She has never had a bowel obstruction that she knows of in the past. [facility] Medical History Essential hypertension Fibromyalgia IBS (irritable bowel syndrome) Mixed hyperlipidemia REGINA on CPAP Premature atrial contraction Pulmonary embolism Type 2 diabetes mellitus Home Medications aspirin 81 mg tablet,delayed release (Adult Low Dose Aspirin) 81 mg PO DAILY heart health 12/01/19 [History Last Taken 12/09/19 08:00 81 mg] metformin 1,000 mg tablet 1,000 mg PO BID DM 12/01/19 [History Last Taken 12/08/19] metoprolol succinate 50 mg tablet,extended release 24 hr 50 mg PO DAILY BP 12/01/19 [History Last Taken 12/09/19 08:00 50 mg] rosuvastatin 5 mg tablet 5 mg PO DAILY cholesterol 12/01/19 [History Last Taken 12/08/19 22:00 5 mg] omeprazole 20 mg capsule,delayed release 20 mg PO DAILY GERD 12/04/19 [History Last Taken 12/09/19 08:00 20 mg] melatonin 10 mg tablet 20 mg PO HS PRN Sleep 04/26/20 [History Last Taken Unknown] dulaglutide 3 mg/0.5 mL subcutaneous pen injector (Trulicity) 3 mg subcut QWEEK 01/14/21 [History Last Taken Unknown] lisinopril 20 mg tablet 20 mg PO DAILY BP #90 tabs 04/11/21 [Rx Last Taken Unknown] biotin 2,500 mcg capsule 5 mg PO DAILY 01/16/22 [History Last Taken Unknown] cetirizine 10 mg tablet (Zyrtec) 10 mg PO DAILY PRN allergies 01/16/22 [History Last Taken Unknown] cholecalciferol (vitamin D3) 25 mcg (1,000 unit) tablet 25 mcg PO DAILY 01/16/22 [History Last Taken Unknown] dicyclomine 20 mg tablet 20 mg PO BID 01/16/22 [History Last Taken Unknown] glimepiride 4 mg tablet 6 mg PO .COMPLEX DM 01/16/22 [History Last Taken Unknown] insulin glargine 100 unit/mL (3 mL) subcutaneous pen (Basaglar KwikPen U-100 Insulin) 20 unit subcut QAM 01/16/22 [History Last Taken Unknown] Allergy/AdvReac Type Severity Reaction Status Date / Time codeine AdvReac Severe Nausea Verified 02/03/22 20:59 Penicillins AdvReac Unknown Unknown Verified 02/03/22 20:59 Family History Mother Myocardial infarction Brother Diabetes Uncle Myocardial infarction Uncle Myocardial infarction Surgical History History of bladder surgery History of carpal tunnel surgery History of cholecystectomy History of left heart catheterization (LHC) (~12/09/19) Social History Smoking Status: Never smoker alcohol intake: never substance use type: does not use caffeine: Yes Type: coffee Number of servings: 1 and tea ROS Constitutional Constitutional: Denies anorexia, chills, fatigue or headache(s) Eyes Eyes: Denies blurry vision ENT HEENT: Denies abnormal hearing Cardiovascular Cardiovascular: Denies chest pain Respiratory/Chest Respiratory/Chest: Reports cough; Denies dyspnea Gastrointestinal Gastrointestinal: Reports abdominal pain and nausea; Denies change in bowel habits, coffee ground emesis, diarrhea, hematemesis, hematochezia, rectal bleeding or vomiting Genitourinary Genitourinary: Reports urinary frequency and urinary urgency; Denies difficulty urinating Musculoskeletal Musculoskeletal: Denies abnormal gait or back pain Integumentary Integumentary: Denies jaundice Neurologic Neurologic: Denies abnormal gait Psychiatric Psychiatric: Denies anxiety Endocrine Endocrinology: Denies heat intolerance Hematologic/Lymphatic Hematologic/Lymphatic: Denies easy bleeding Vital Signs Vital Signs Vital Signs: 02/03/22 20:57 02/03/22 23:24 Temperature 97.3 F L 98.2 F Temperature Source Temporal Temporal Pulse Rate 97 86 Respiratory Rate 18 18 Blood Pressure 188/102 H 183/88 H Blood Pressure Mean 130 119 Pulse Ox 96 93 Oxygen Delivery Method Room Air Room Air Weight Weight: 155 lb 13.869 oz Body Mass Index (BMI) 30.4 Physical Exam Const oriented x3 Resp normal respiratory effort Cardio regular rate and regular rhythm GI soft to palpation Inspection: abdominal distention Palpation: tender LUQ Extremity normal to inspection Results Lab / Micro Data Result Diagrams: 02/03/22 21:16 02/03/22 21:16 Labs: Laboratory Results - last 24 hr 02/03/22 21:16: WBC 7.9, RBC 4.78, Hgb 13.5, Hct 42.1, MCV 88.1, MCH 28.2, MCHC 32.1, RDW Std Deviation 43.0, RDW Coeff of [place] 13.4, Plt Count 179, MPV 11.9, Immature Gran % (Auto) 0.400, Neut % (Auto) 69.7, Lymph % (Auto) 19.9, [place] % (Auto) 6.3, Eos % (Auto) 3.3, Baso % (Auto) 0.4, Absolute Neuts (auto) 5.5, Absolute Lymphs (auto) 1.57, Nucleated RBC % 0 02/03/22 21:16: Sodium 141, Potassium 4.6, Chloride 107, Carbon Dioxide 23.0, Anion Gap 11, BUN 16, Creatinine 0.58, Estim Creat Clear Calc 70.39, Est GFR (MDRD) Af Amer 133, Est GFR (MDRD) Non-Af 110, BUN/Creatinine Ratio 27.4 H, Glucose 196 H, Calcium 9.9, Total Bilirubin 0.70, AST 54 H, ALT 59 H, Alkaline Phosphatase 89, Total Protein 7.7, Albumin 3.9, Globulin 3.8, Albumin/Globulin Ratio 1.0, Lipase 417 H Radiology Impression Abdomen/Pelvis CT 02/03/22 21:08 IMPRESSION: Mild partial small bowel obstruction. Electronically Signed: José Manuel Lake MD at 22:47 EDT , Assessment & Plan Assessment/Plan (1) Partial small bowel obstruction: PLAN: Patient CT scan shows dilated stomach and proximal small bowel with no clear transition point but there is a nondilated terminal ileum and there is stool in the colon. Patient has partial small bowel obstruction. NG was placed in the emergency room and appears to be in good position. Continue suction IV fluids through the night and repeat imaging in the a.m. with small bowel follow- through. (2) Type 2 diabetes mellitus: PLAN: Insulin sliding scale (3) Essential hypertension: PLAN: IV hydralazine to control blood pressure until patient is able to take p.o. meds PLAN: Plan Oumar Hahn MD Pager: [facility] [address] [place] [address], [address] [place] [phone] Office:
[2022-02-04] VITALS (16 sets, daily range): BP systolic 129–170; BP diastolic 55–98; PULSE 81–96; RESP 16–18; TEMP 36.7–37.3; O2SAT 88–98; BMI 30.5
[2022-02-04] MEDS: Morphine 2 MG/ML Syringe IV (00:27)
[2022-02-04] MEDS: 0.9% Saline Lock 10 ML Syringe IV ×2 (00:28→00:45)
[2022-02-04] MEDS: 0.9% Normal Saline 1,000 ML 125 ML IV ×3 (00:37→17:17)
[2022-02-04] MEDS: hydrALAZINE 20 MG/ML Vial 10 MG IV ×2 (00:45→20:19)
[2022-02-04] MEDS: Insulin Lispro 100 UNIT/ML INSULN.PEN SC ×3 (00:48→11:14)
[2022-02-04 01:05] LABS: Bedside Glucose 172 mg/dL (74-106)
[2022-02-04] MEDS: Ketorolac 15 MG/ML Vial IV (05:28)
[2022-02-04 06:12] LABS: Absolute Lymphocyte Count 1.24 X10^3/uL (0.83-4.51); Absolute Neutrophil Count 5.7 X10^3/uL (2.0-7.7); Basophil# 0.01 X10^3/uL; Basophil% 0.1 % (0-1); Eosinophils% 1.3 % (0-5); Hematocrit 37.8 % (37-47); Hemoglobin 12.5 g/dL (12.0-15.0); Lymphocyte # 1.24 X10^3/ul (0.83-4.51); Lymphocyte % 16.4 % (19-41); Mean Corp Hgb Conc 33.1 g/dL (32-36); Mean Corpuscular Hgb 29.2 pg (27.0-32.0); Mean Corpuscular Volume 88.3 fL (81-99); Mean Platelet Vol. 11.1 fl (6.2-12.0); Monocyte# 0.48 X10^3/uL; Monocyte% 6.4 % (0-10); NRBC Flagged by Analyzer 0 % (0-5); Neutrophil # 5.69 X10^3/uL (2.7-7.7); Neutrophil % 75.5 % (47-70); Platelet Count 164 K/mm3 (150-450); RBC Distribution Width CV 13.5 % (11.6-14.6); RBC Distribution Width SD 43.8 fl (35.1-43.9); Red Blood Count 4.28 M/mm3 (4.2-5.4); White Blood Count 7.5 K/mm3 (4.4-11.0)
[2022-02-04 06:49] LABS: Anion Gap 8 (5-15); BUN 13 mg/dL (7-18); BUN/Creat Ratio 28.1 RATIO (10-20); Calcium,Total 8.6 mg/dL (8.5-10.1); Chloride 108 mmol/L (98-107); Creatinine, Serum 0.46 mg/dL (0.55-1.02); EST Glomerular Filtration Rate 144 mL/min (>60); Est Glom Filt Rate - Afr Amer 174 mL/min (>60); Estimated Creatinine Clearance 88.75 ml/min; Glucose 186 mg/dL (74-106); Magnesium 1.7 mg/dL (1.6-2.6); Potassium 3.7 mmol/L (3.5-5.1); Sodium Level 141 mmol/L (136-145)
--- NOTE | 2022-02-04 07:30 | EKG12_ITS ---
Test Reason : CP Blood Pressure : / mmHG Vent. Rate : 087 BPM Atrial Rate : 087 BPM P-R Int : 134 ms QRS Dur : 070 ms QT Int : 384 ms P-R-T Axes : 039 012 034 degrees QTc Int : 462 ms Normal sinus rhythm Normal ECG No previous ECGs available Confirmed by MARYCARMEN CORDERO, RODNEY ([id number]), multimedia editor ANNEL ZAMBRANO ([id number]) on 02/06/2022 1:58:15 PM Referred By: JANE Confirmed By:RODNEY CONROY MD
--- NOTE | 2022-02-04 07:30 | NURSING ---
pt resting in bed. c/o of sharp pain in the right side of my chest, it goes through to my back. pt states she has experienced similar pain in the past and normally takes ASA for it. pt states she has not had a heart attack that she is aware of. pt states I have had blood clots in the past, i think it was in my right side, but to be honest, it has been so long ago. pt conversant, speaks in full sentences. states i am chronically SOB and do not feel any more SOB than normal. pt states it is in my neck as well and goes up into my jaw. pt states Dr. Mckeon was going to do an MRI because I have been having difficulty swallowing and chronic SOB for awhile but my insurance company refused to pay for it so i wasn't able to have it done. spO2 98% on @2L nc, heart rate 86. pt agrees to notify said nurse if any changes in discomfort. EKG ordered. CPS notified
--- NOTE | 2022-02-04 08:00 | RAD_ITS ---
EXAM: FL SMALL BOWEL FOLLOW THROUGH CLINICAL INDICATION: small bowel obstruction TECHNIQUE: Fluoroscopy of the small bowel including multiple serial delayed images following oral contrast administration. Fluoroscopic guidance was provided by a physician. This report was created using [employer] report AIRSIS technology. COMPARISON: None. FINDINGS: SMALL BOWEL: There is no small bowel obstruction. Small bowel transit time is within normal limits. The mucosal pattern is unremarkable. The terminal ileum is unremarkable. COLON: Prominent diffuse distention of the large bowel. Subsequent images of the abdomen demonstrate progression of dilute contrast from the stomach through the small bowel. Contrast extends into the right colon at 1 hour and 15 minutes following contrast administration. OTHER FINDINGS: Java Performance Engineer film demonstrates residual contrast material within the urinary tract. RAD/Small Bowel Series Only IMPRESSION: 1. Large bowel ileus. 2. No evidence of small bowel obstruction. Electronically Signed: Telly Fox MD at 11:49 EDT Reading Location ID and State: [facility] / [place] Tel , Service support ,
--- NOTE | 2022-02-04 08:08 | CT_ITS ---
EXAM: CT ANGIOGRAPHY CHEST WITH INTRAVENOUS CONTRAST CLINICAL INDICATION: right chest pain stabbing into back- hx of PE''s TECHNIQUE: Helically acquired angiography images were obtained of the chest with intravenous contrast. This CT exam was performed using one or more of the following dose reduction techniques: automated exposure control, adjustment of the mA and/or kV according to patient size, and/or use of iterative reconstruction technique. This report was created using [employer] report generation technology. MIP reconstructed images were created and reviewed. CONTRAST: IV 100mL Isovue-370 COMPARISON: None. FINDINGS: PULMONARY ARTERIES: Normal. Normal in caliber. No evidence of pulmonary embolism. AORTA: Normal. Normal in caliber. No evidence of dissection. GREAT VESSELS OF AORTIC ARCH: Normal. Normal in caliber. No evidence of dissection. LUNGS AND PLEURAL SPACES: Minor bibasilar atelectasis. Mild patchy groundglass density within the right upper lobe suggestive of pneumonitis. Lungs are otherwise clear. No mass. No pleural effusion or thickening. HEART: Normal. Heart size is normal. No pericardial effusion. No signs of right heart strain, ratio of right ventricle to left ventricle measures less than 1. MEDIASTINUM: Normal. No mediastinal or hilar adenopathy. Esophagus is unremarkable. No hiatal hernia. THYROID: Normal. No thyroid lesions. BONES/JOINTS: Normal. No suspicious lytic or blastic abnormality. TUBES, LINES AND DEVICES: Enteric tube tip in the stomach. CT/CTA Chest W/WO Contrast IMPRESSION: 1. No evidence of acute pulmonary embolism. 2. Minimal right upper lobe lung density suggestive of pneumonitis. 3. Mild bibasilar atelectasis. Electronically Signed: Telly Fox MD at 9:49 EDT ,
--- NOTE | 2022-02-04 08:22 | CASEMGMT ---
JANE GIBBS Assessment: Face to Face with pt for initial transition planning/care coordination assessment. RN BERNIE introduced self and role at [facility], pt voices understanding and consents to assessment. Pt is A/O x4 and answers all questions appropriately at this time. Pt lying in bed with NG in in no distress. Care providers, pharmacy, and demographics verified/updated. Admitting Dx: partial SBO PCP:[facility] Specialists:Bk, cardio; jordin Olivera Preferred Pharmacy: [facility] Insurance: [facility] Just [employer] Me Prescription Benefit: yes LW/HPOA: Pt denies having a LW/DPOA and denies need for info regarding AD. LNOK: Tyson Shaw, ; James Springer, dtr Living Arrangements: Pt lives with in a single story addition to her daughter's home. Pt has 1 step to enter. Pt reports being I in ADL's and denies concerns at home. Transportation: Pt drives self and denies concerns with transportation. DME/HHC/SNF: Pt has a CPAP at home, denies hx of HHC or SNF stays. Pt states no concerns with going home at time of dc. Pt states no further concerns/needs. CM to follow. Advised pt to ask CM if any further question/concerns/needs arise, voices understanding. Pt Goal: Home Plan: Home
--- NOTE | 2022-02-04 08:30 | PN.SURG_ITS ---
Subjective Subjective The patient was having sharp right chest pain this morning and does have a history of PE. Patient does note that she is passing flatus. Objective Data Objective Data Vital Signs: Vital Signs Temp Pulse Resp BP Pulse Ox O2 Del Method O2 Flow Rate 98.8 F 88 18 156/82 H 98 Nasal Cannula 2 02/04/22 07:56 02/04/22 07:56 02/04/22 07:56 02/04/22 07:56 02/04/22 07:56 02/04/22 08:02 02/04/22 08:02 Oxygen Flow Rate (L/min) 2 Oxygen Delivery Method Nasal Cannula Weight: 156 lb 6 oz Body Mass Index (BMI) 30.5 Intake & Output: Intake and Output for Last 24 Hours 02/02/22 02/03/22 02/04/22 23:59 23:59 23:59 Intake Total 1000 / 1000 1021.67 / 1021.67 Balance 1000 / 1000 1021.67 / 1021.67 Lab / Micro Data Result Diagrams: 02/04/22 06:05 02/04/22 06:05 Labs: Laboratory Results - last 24 hr 02/03/22 21:16: WBC 7.9, RBC 4.78, Hgb 13.5, Hct 42.1, MCV 88.1, MCH 28.2, MCHC 32.1, RDW Std Deviation 43.0, RDW Coeff of [place]en 13.4, Plt Count 179, MPV 11.9, Immature Gran % (Auto) 0.400, Neut % (Auto) 69.7, Lymph % (Auto) 19.9, [place] % (Auto) 6.3, Eos % (Auto) 3.3, Baso % (Auto) 0.4, Absolute Neuts (auto) 5.5, Absolute Lymphs (auto) 1.57, Nucleated RBC % 0 02/03/22 21:16: Sodium 141, Potassium 4.6, Chloride 107, Carbon Dioxide 23.0, Anion Gap 11, BUN 16, Creatinine 0.58, Estim Creat Clear Calc 70.39, Est GFR (MDRD) Af Amer 133, Est GFR (MDRD) Non-Af 110, BUN/Creatinine Ratio 27.4 H, Glucose 196 H, Calcium 9.9, Total Bilirubin 0.70, AST 54 H, ALT 59 H, Alkaline Phosphatase 89, Total Protein 7.7, Albumin 3.9, Globulin 3.8, Albumin/Globulin Ratio 1.0, Lipase 417 H 02/04/22 00:32: POC Glucose 172 H 02/04/22 06:05: WBC 7.5, RBC 4.28, Hgb 12.5, Hct 37.8, MCV 88.3, MCH 29.2, MCHC 33.1, RDW Std Deviation 43.8, RDW Coeff of Aden 13.5, Plt Count 164, MPV 11.1, Immature Gran % (Auto) 0.300, Neut % (Auto) 75.5 H, Lymph % (Auto) 16.4 L, [place] % (Auto) 6.4, Eos % (Auto) 1.3, Baso % (Auto) 0.1, Absolute Neuts (auto) 5.7, Absolute Lymphs (auto) 1.24, Nucleated RBC % 0 02/04/22 06:05: Sodium 141, Potassium 3.7, Chloride 108 H, Carbon Dioxide 25.0, Anion Gap 8, BUN 13, Creatinine 0.46 L, Estim Creat Clear Calc 88.75, Est GFR (MDRD) Af Amer 174, Est GFR (MDRD) Non-Af 144, BUN/Creatinine Ratio 28.1 H, Glucose 186 H, Calcium 8.6, Magnesium 1.7 Radiography Diagnostic Testing: Radiology Impression Abdomen/Pelvis CT 02/03/22 21:08 IMPRESSION: Mild partial small bowel obstruction. Electronically Signed: José Manuel Lake MD at 22:47 EDT Reading Location ID and State: [employer] [place] / [employer] Tel , Service support , KUB X-Ray 02/03/22 23:10 IMPRESSION: 1. Nasogastric tube coiled in left upper quadrant likely in the body the stomach. 2. Mild partial small bowel obstruction. Electronically Signed: José Manuel Lake MD at 23:32 EDT , KUB X-Ray 02/03/22 23:23 IMPRESSION: 1. Nasogastric tube with the tip in the left upper quadrant likely in the body the stomach. 2. Mild partial small bowel obstruction. Electronically Signed: José Manuel Lake MD at 23:33 EDT , Physical Exam Const oriented x3 Resp normal respiratory effort Cardio regular rate GI soft to palpation Inspection: abdominal distention Assessment & Plan Assessment/Plan (1) Partial small bowel obstruction: PLAN: The patient had a partial small bowel stricture on CT yesterday. She is passing flatus. She is getting a small bowel follow-through today. (2) Chest pain: QUALIFIERS: Chest pain type: precordial pain Qualified Code(s): R07.2 - Precordial pain PLAN: The patient was having sharp right-sided chest pain a CTA will be ordered. EKG was normal. Troponins are being ordered as well.
[2022-02-04 08:43] LABS: Troponin-I HS 9 pg/mL (3.0-54.0)
[2022-02-04] MEDS: Enoxaparin 40 MG/0.4 ML Syringe SC (11:10)
[2022-02-04 11:11] LABS: Troponin-I HS 9 pg/mL (3.0-54.0)
--- NOTE | 2022-02-04 11:27 | NURSING ---
pt c/o of headache- updated on options and possible side effects of narcotics. pt states she does drink 1 cup of coffee a day with caffeine in it. offered other options for headache aside from Narcotic, pt is agreeable to blinds being pulled down to allow less bright light in room. offered warm/cold compress to head and pt declines both, agreeing to let nurse know if she is agreeable. will notify , as pt reports she is having diarrhea now and making multiple trips to bathroom so NGT remains clamped.
[2022-02-04 11:35] LABS: Bedside Glucose 179 mg/dL (74-106)
[2022-02-04 14:08] LABS: Troponin-I HS 8 pg/mL (3.0-54.0)
[2022-02-04] MEDS: Acetaminophen 325 MG Tablet 650 MG PO ×2 (17:17→23:50)
[2022-02-04 17:35] LABS: Bedside Glucose 117 mg/dL (74-106)
[2022-02-04 21:40] LABS: Bedside Glucose 205 mg/dL (74-106)
[2022-02-04 23:26] LABS: Bedside Glucose 139 mg/dL (74-106)
[2022-02-05] VITALS (9 sets, daily range): BP systolic 113–176; BP diastolic 54–91; PULSE 74–100; RESP 15–16; TEMP 36.7–37; O2SAT 93–100
[2022-02-05] MEDS: 0.9% Normal Saline 1,000 ML 125 ML IV (00:56)
[2022-02-05 06:30] LABS: Absolute Lymphocyte Count 1.43 X10^3/uL (0.83-4.51); Absolute Neutrophil Count 3.2 X10^3/uL (2.0-7.7); Basophil# 0.01 X10^3/uL; Basophil% 0.2 % (0-1); Eosinophil# 0.19 X10^3/uL; Eosinophils% 3.6 % (0-5); Hematocrit 37.5 % (37-47); Hemoglobin 12.2 g/dL (12.0-15.0); Lymphocyte # 1.43 X10^3/ul (0.83-4.51); Lymphocyte % 27.3 % (19-41); Mean Corp Hgb Conc 32.5 g/dL (32-36); Mean Corpuscular Hgb 29.1 pg (27.0-32.0); Mean Corpuscular Volume 89.5 fL (81-99); Mean Platelet Vol. 11.2 fl (6.2-12.0); Monocyte# 0.43 X10^3/uL; Monocyte% 8.2 % (0-10); NRBC Flagged by Analyzer 0 % (0-5); Neutrophil # 3.17 X10^3/uL (2.7-7.7); Neutrophil % 60.5 % (47-70); Platelet Count 156 K/mm3 (150-450); RBC Distribution Width CV 13.9 % (11.6-14.6); RBC Distribution Width SD 44.9 fl (35.1-43.9); Red Blood Count 4.19 M/mm3 (4.2-5.4); White Blood Count 5.2 K/mm3 (4.4-11.0)
[2022-02-05] MEDS: Insulin Lispro 100 UNIT/ML INSULN.PEN SC (06:43)
[2022-02-05 06:58] LABS: Anion Gap 7 (5-15); BUN 7 mg/dL (7-18); BUN/Creat Ratio 19.4 RATIO (10-20); Calcium,Total 8.3 mg/dL (8.5-10.1); Chloride 111 mmol/L (98-107); Creatinine, Serum 0.36 mg/dL (0.55-1.02); EST Glomerular Filtration Rate 192 mL/min (>60); Est Glom Filt Rate - Afr Amer 232 mL/min (>60); Glucose 153 mg/dL (74-106); Potassium 3.2 mmol/L (3.5-5.1); Sodium Level 142 mmol/L (136-145)
--- NOTE | 2022-02-05 07:03 | PCM.PN.SRG ---
Subjective Subjective Patient tolerated clears with no nausea or vomiting. She is passing flatus. She reports she is having diarrhea and she says it is red and she believes there is some blood in it. Objective Data Objective Data Vital Signs: Vital Signs Temp Pulse Resp BP Pulse Ox O2 Del Method O2 Flow Rate 98.2 F 80 15 113/54 L 93 Nasal Cannula 2 02/05/22 02:55 02/05/22 05:27 02/05/22 02:55 02/05/22 02:55 02/05/22 02:55 02/05/22 02:55 02/05/22 02:55 Oxygen Flow Rate (L/min) 2 Oxygen Delivery Method Nasal Cannula Weight: 156 lb 6.017 oz Body Mass Index (BMI) 30.5 Intake & Output: Intake and Output for Last 24 Hours 02/03/22 02/04/22 02/05/22 23:59 23:59 23:59 Intake Total 1000 / 1000 2131.67 / 2581.67 1556.25 / 1556.25 Balance 1000 / 1000 2131.67 / 2581.67 1556.25 / 1556.25 Lab / Micro Data Result Diagrams: 02/05/22 06:12 02/05/22 06:12 Labs: Laboratory Results - last 24 hr 02/04/22 05:34: POC Glucose 179 H 02/04/22 06:05: Troponin I High Sens 9 02/04/22 10:28: Troponin I High Sens 9 02/04/22 11:13: POC Glucose 205 H 02/04/22 13:38: Troponin I High Sens 8 02/04/22 17:12: POC Glucose 117 H 02/04/22 23:05: POC Glucose 139 H 02/05/22 06:12: WBC 5.2, RBC 4.19 L, Hgb 12.2, Hct 37.5, MCV 89.5, MCH 29.1, MCHC 32.5, RDW Std Deviation 44.9 H, RDW Coeff of Aden 13.9, Plt Count 156, MPV 11.2, Immature Gran % (Auto) 0.200, Neut % (Auto) 60.5, Lymph % (Auto) 27.3, [place] % (Auto) 8.2, Eos % (Auto) 3.6, Baso % (Auto) 0.2, Absolute Neuts (auto) 3.2, Absolute Lymphs (auto) 1.43, Nucleated RBC % 0 02/05/22 06:12: Sodium 142, Potassium 3.2 L, Chloride 111 H, Carbon Dioxide 24.0, Anion Gap 7, BUN 7, Creatinine 0.36 L, Estim Creat Clear Calc 113.40, Est GFR (MDRD) Af Amer 232, Est GFR (MDRD) Non-Af 192, BUN/Creatinine Ratio 19.4, Glucose 153 H, Calcium 8.3 L Radiography Diagnostic Testing: Radiology Impression Small Bowel X-Ray 02/04/22 08:00 IMPRESSION: 1. Large bowel ileus. 2. No evidence of small bowel obstruction. Electronically Signed: Telly Fox MD at 11:49 EDT , Chest CTA 02/04/22 08:08 IMPRESSION: 1. No evidence of acute pulmonary embolism. 2. Minimal right upper lobe lung density suggestive of pneumonitis. 3. Mild bibasilar atelectasis. Electronically Signed: Telly Fox MD at 9:49 EDT , Physical Exam Const oriented x3 Resp normal respiratory effort GI soft to palpation and non-tender Assessment & Plan Assessment/Plan (1) Partial small bowel obstruction: PLAN: The patient had a small bowel follow-through yesterday which showed passage very quickly into the colon. There is also improvement of the small bowel distention. The abdominal pain she was having is gone but she still such as there is a little mild discomfort in the upper left quadrant. Unsure as to why she is having blood in her diarrhea. I would like to advance her diet today to see if she tolerates diet. I will also make sure she is on a PPI in case she is having any gastric bleeding from the NG tube with irritation of being n.p.o. I will resume her home meds and insulin regimen. Oumar Hahn MD Pager: [facility] [address] [place] [address], [facility] [address] [place] [address] Office:
[2022-02-05 07:06] LABS: Bedside Glucose 158 mg/dL (74-106)
[2022-02-05] MEDS: metFORMIN HCl 1,000 MG Tablet 1000 MG PO ×2 (08:34→16:07)
[2022-02-05] MEDS: Dicyclomine 10 MG Capsule 20 MG PO ×2 (08:34→16:07)
[2022-02-05] MEDS: Aspirin E.C. 81 MG Tablet PO (08:35)
[2022-02-05] MEDS: Lisinopril 20 MG Tablet PO (08:35)
[2022-02-05] MEDS: Pantoprazole Sodium 20 MG Tablet PO (08:35)
[2022-02-05] MEDS: Metoprolol(XL)Succ 50 MG Tablet PO (08:35)
[2022-02-05] MEDS: Glimepiride 4 MG Tablet PO (08:36)
[2022-02-05] MEDS: Enoxaparin 40 MG/0.4 ML Syringe SC (08:36)
[2022-02-05] MEDS: Insulin Glargine-YFGN 100 UNIT/ML Pen 20 UNIT SC (08:39)
[2022-02-05] MEDS: Acetaminophen 325 MG Tablet 650 MG PO (10:57)
[2022-02-05 12:30] LABS: Bedside Glucose 171 mg/dL (74-106)
[2022-02-05] MEDS: Glimepiride 2 MG Tablet PO (16:07)
[2022-02-05 17:25] LABS: Bedside Glucose 206 mg/dL (74-106)
[2022-02-05] MEDS: Atorvastatin Calcium 10 MG Tablet PO (21:38)
[2022-02-05] MEDS: MELATONIN 10 MG TABLET 20 MG PO (21:39)
[2022-02-05 22:00] LABS: Bedside Glucose 240 mg/dL (74-106)
[2022-02-06 02:15] VITALS: BP 148/77; PULSE 77; RESP 16; TEMP 37.1; O2SAT 95
[2022-02-06] MEDS: Dicyclomine 10 MG Capsule 20 MG PO (05:50)
[2022-02-06 06:16] LABS: Bedside Glucose 165 mg/dL (74-106)
--- NOTE | 2022-02-06 07:23 | PCM.DC.SUM ---
Providers Date of Admission: 02/03/22 Primary Care Physician: Dr. Matthew Adan MD Reason For Visit: PARTIAL SMALL BOWEL OBSTRUCTION Diagnosis Discharge Diagnosis (1) Partial small bowel obstruction: Status: Acute Code(s): K56.600 - Partial intestinal obstruction, unspecified as to cause Plan: The patient had a small bowel follow-through yesterday which showed passage very quickly into the colon. There is also improvement of the small bowel distention. The abdominal pain she was having is gone but she still such as there is a little mild discomfort in the upper left quadrant. Unsure as to why she is having blood in her diarrhea. I would like to advance her diet today to see if she tolerates diet. I will also make sure she is on a PPI in case she is having any gastric bleeding from the NG tube with irritation of being n.p.o. I will resume her home meds and insulin regimen. Oumar Hahn MD Pager: [facility] [address] [place] [address], [address] [place] [address] Office: Medications at Discharge Home Medications aspirin 81 mg tablet,delayed release (Adult Low Dose Aspirin) 81 mg PO DAILY heart health 12/01/19 metformin 1,000 mg tablet 1,000 mg PO BID DM 12/01/19 metoprolol succinate 50 mg tablet,extended release 24 hr 50 mg PO DAILY BP 12/01/19 rosuvastatin 5 mg tablet 5 mg PO DAILY cholesterol 12/01/19 omeprazole 20 mg capsule,delayed release 20 mg PO DAILY GERD 12/04/19 melatonin 10 mg tablet 20 mg PO HS PRN Sleep 04/26/20 dulaglutide 3 mg/0.5 mL subcutaneous pen injector (Trulicity) 3 mg subcut QWEEK Check with primary doctor 01/14/21 lisinopril 20 mg tablet 20 mg PO DAILY BP #90 tabs 04/11/21 biotin 2,500 mcg capsule 5,000 mcg PO DAILY SUPPLEMENT 01/16/22 cetirizine 10 mg tablet (Zyrtec) 10 mg PO DAILY PRN allergies 01/16/22 cholecalciferol (vitamin D3) 25 mcg (1,000 unit) tablet 25 mcg PO DAILY 01/16/22 dicyclomine 20 mg tablet 20 mg PO BID 01/16/22 glimepiride 4 mg tablet 4 mg PO BREAKFAST DM 01/16/22 insulin glargine 100 unit/mL (3 mL) subcutaneous pen (Basaglar KwikPen U-100 Insulin) 20 unit subcut QAM 01/16/22 glimepiride 2 mg tablet 2 mg PO DINNER DM 02/04/22 Hospital Course Operations None Procedures None Summary of Care Provided Hospital Course: Patient was admitted with abdominal pain and gastric distention. NG was placed. The following day of small bowel follow-through was performed. Small bowel follow-through showed passage into the colon and the NG was removed and she was started on clears and advance as tolerated. When she was tolerating diet and doing well she was discharged home. She did have a mild amount of blood in one of her bowel movements and I recommended outpatient colonoscopy if she has not had one in over 10 years. Physical Exam Const oriented x3 Resp normal respiratory effort GI soft to palpation and non-tender Weight / BMI Weight Weight: 156 lb 6.017 oz Body Mass Index (BMI) 30.5 ABG / Lab / Microbiology Data Result Diagrams: 02/05/22 06:12 02/05/22 06:12 Laboratory: Laboratory Results - last 24 hr 02/05/22 11:42: POC Glucose 171 H 02/05/22 17:03: POC Glucose 206 H 02/05/22 21:35: POC Glucose 240 H 02/06/22 05:44: POC Glucose 165 H D/C Instructions Discharge Diet: 2000 Calorie Control Diet Discharge Activity: Return to Normal Activity May resume sexual activity in: No Restrictions Weight Bearing Status: Weight bearing as tolerated Call your doctor if you observe: Inability to urinate, Inability to have a bowel movement and Uncontrolled pain Please Follow Up With: Oumar Hahn MD When: Please call to schedule follow up appointment to schedule colonoscopy. [phone] Meaningful Use Info Meaningful Use Diagnoses (Choose all that apply): None applicable Discharge Plan Admission Admit Date/Time: 02/03/22 23:07 Attending Provider: Oumar Hahn Primary Care Provider: Matthew Adan Discharge Orders/Prescriptions Prescriptions: Continued omeprazole 20 mg capsule,delayed release(DR/EC) 20 mg PO DAILY metoprolol succinate 50 mg tablet extended release 24 hr 50 mg PO DAILY metformin 1,000 mg tablet 1,000 mg PO BID rosuvastatin 5 mg tablet 5 mg PO DAILY aspirin [Adult Low Dose Aspirin] 81 mg tablet,delayed release (DR/EC) 81 mg PO DAILY glimepiride 4 mg tablet 4 mg PO BREAKFAST melatonin 10 mg tablet 20 mg PO HS PRN (Reason: Sleep) Trulicity 3 mg/0.5 mL pen injector 3 mg subcut QWEEK Rx Instructions: takes weekly on Wednesdays insulin glargine [Basaglar KwikPen U-100 Insulin] 100 unit/mL (3 mL) insulin pen 20 unit subcut QAM dicyclomine 20 mg tablet 20 mg PO BID cetirizine [Zyrtec] 10 mg tablet 10 mg PO DAILY PRN (Reason: allergies) cholecalciferol (vitamin D3) 25 mcg (1,000 unit) tablet 25 mcg PO DAILY biotin 2,500 mcg capsule 5,000 mcg PO DAILY glimepiride 2 mg Tablet 2 mg PO DINNER lisinopril 20 mg tablet 20 mg PO DAILY Qty: 90 3RF Referrals / Follow Up: Matthew Adan MD [Primary Care Provider] - Disposition Disposition (needs filled in before D/C Order can be placed): Home, Self Care
[2022-02-06] MEDS: Aspirin E.C. 81 MG Tablet PO (07:54)
[2022-02-06] MEDS: Glimepiride 4 MG Tablet PO (07:55)
[2022-02-06] MEDS: metFORMIN HCl 1,000 MG Tablet 1000 MG PO (07:55)
[2022-02-06 08:36] VITALS: BP 172/87; PULSE 84; RESP 18; TEMP 36.2; O2SAT 96
--- NOTE | 2022-02-06 09:46 | PHA.DC.MR ---
Pharmacy Service has performed discharge medication reconciliation for this patient. No new medications at time of discharge review. Medications reviewed are from previously reported home medications. Home Medications aspirin 81 mg tablet,delayed release (Adult Low Dose Aspirin) 81 mg PO DAILY heart health 12/01/19 metformin 1,000 mg tablet 1,000 mg PO BID DM 12/01/19 metoprolol succinate 50 mg tablet,extended release 24 hr 50 mg PO DAILY BP 12/01/19 rosuvastatin 5 mg tablet 5 mg PO DAILY cholesterol 12/01/19 omeprazole 20 mg capsule,delayed release 20 mg PO DAILY GERD 12/04/19 melatonin 10 mg tablet 20 mg PO HS PRN Sleep 04/26/20 dulaglutide 3 mg/0.5 mL subcutaneous pen injector (Trulicity) 3 mg subcut QWEEK Check with primary doctor 01/14/21 lisinopril 20 mg tablet 20 mg PO DAILY BP #90 tabs 04/11/21 biotin 2,500 mcg capsule 5,000 mcg PO DAILY SUPPLEMENT 01/16/22 cetirizine 10 mg tablet (Zyrtec) 10 mg PO DAILY PRN allergies 01/16/22 cholecalciferol (vitamin D3) 25 mcg (1,000 unit) tablet 25 mcg PO DAILY 01/16/22 dicyclomine 20 mg tablet 20 mg PO BID 01/16/22 glimepiride 4 mg tablet 4 mg PO BREAKFAST DM 01/16/22 insulin glargine 100 unit/mL (3 mL) subcutaneous pen (Basaglar KwikPen U-100 Insulin) 20 unit subcut QAM 01/16/22 glimepiride 2 mg tablet 2 mg PO DINNER DM 02/04/22 The patient's discharge medication list was reviewed for discrepancies and discrepancies were resolved.
== END 2022-02-06 10:01 | disposition home or self-care (01) | DRG 389 ==
LOC: ED 22:53 → MS3 02-06 07:29
PROVIDERS: Admitting Provider Surgery; Emergency Provider Emergency Medicine; PCP Family Medicine; Visit Provider Surgery
DX: K56.600 Partial intestinal obstruction, unspecified as to cause (principal); K92.1 Melena; E11.65 Type 2 diabetes mellitus with hyperglycemia; Z79.4 Long term (current) use of insulin; I10 Essential (primary) hypertension; E78.2 Mixed hyperlipidemia; K58.9 Irritable bowel syndrome, unspecified; M79.7 Fibromyalgia; G47.33 Obstructive sleep apnea (adult) (pediatric); R07.2 Precordial pain; Z79.82 Long term (current) use of aspirin; Z79.899 Other long term (current) drug therapy; Z86.711 Personal history of pulmonary embolism
CPT/HCPCS: 36415; 71275; 74018; 74177; 74250; 80048; 80053; 82962; 83690; 83735; 84484; 85025; 93005; 99285; J7030; Q9967; A4216; J2405

== ENCOUNTER → 2022-02-15 | Outpatient (CLI) | payer OTHER, SELFPAY ==
[2022-02-15 15:30] LABS: Anion Gap 8 (5-15); BUN 11 mg/dL (7-18); BUN/Creat Ratio 20.5 RATIO (10-20); Calcium,Total 8.7 mg/dL (8.5-10.1); Chloride 107 mmol/L (98-107); Creatinine, Serum 0.54 mg/dL (0.55-1.02); EST Glomerular Filtration Rate 121 mL/min (>60); Est Glom Filt Rate - Afr Amer 147 mL/min (>60); Glucose 181 mg/dL (74-106); Potassium 4.1 mmol/L (3.5-5.1); Sodium Level 140 mmol/L (136-145)
== END | disposition home or self-care (01) ==
LOC: MFPLAB 11:40
PROVIDERS: PCP Family Medicine; Referring Provider Family Medicine; Visit Provider Family Medicine
DX: E87.6 Hypokalemia (principal)
CPT/HCPCS: 36415; 80048

== ENCOUNTER 2022-03-28 06:57 | Day surgery (SDC) | payer MEDICARE, SELFPAY ==
--- NOTE | 2022-03-28 | GASB_PTH ---
PATIENT: REENA LAWRENCE LOC: EN U#:[id number] AGE/SX: 67/F ROOM: RE03/28/[address]: Dr. Oumar Hahn MD : 1955 BED: DIS: 03/28/2022 SPEC #: [id number] RECD: 03/28/22 11:13 STATUS: ADRIA ADRIAN #: [id number] MARIELLA: 03/28/22 00:[address]: Oumar Hahn DEPT: SURGICAL PATHOLOGY RECD BY: Brennon Macias ENTERED: 03/28/22 11:13 SP TYPE: Gastric Bx OTHR DR: Dr. Matthew Adan MD Tissues: Gastric mucous membrane Procedures: Surgery Specimen Level IV HEADER OPERATION: Colonoscopy, EGD, biopsy of gastric polypectomy (MAC) PRE-OP DIAGNOSIS: Blood in stool TISSUE SUBMITTED: Gastric polyp MICROSCOPIC DIAGNOSIS Gastric polyp, polypectomy: Fundic gland polyp. SJ:guy 03/29/2022 MICROSCOPIC DESCRIPTION Slides are reviewed. GROSS DESCRIPTION Received in fixative is one container labeled with the patient's name and designated polyp gastric. The specimen consists of a pandey-pink polyp measuring 1 x 1 x 0.3 cm. The apparent base is inked. The polyp is bisected and submitted entirely in one cassette. / SJ:rg 03/28/2022 TC:5 CPT: 32837
[2022-03-28 07:33] VITALS: BP 147/79; PULSE 73; RESP 16; TEMP 36.3; O2SAT 97; BMI 29.7
[2022-03-28 07:36] LABS: Bedside Glucose 146 mg/dL (74-106)
[2022-03-28] MEDS: Lactated Ringers 1,000 ML 15 ML IV (07:40)
--- NOTE | 2022-03-28 08:01 | PCM.HP.BLA ---
History and Physical Date of Admission: 03/28/22 Intake Vital Signs ? 02/04/2210:31 02/15/2210:05 Height 5 ft 5 ft BP ? 156/86 H Blood Pressure Location ? Rt popliteal Position ? Sitting Respiration ? 17 Pulse ? 69 Pulse Source ? Monitor Temp ? 97.7 F L Temp Source ? Temporal Pulse Oximetry (%) ? 96 Oxygen Delivery Method ? room air Intake Visit Reasons:?PARTIAL SBO 02/06 & DISCUSS SCOPE Chief Complaint: f/u from SBO, discuss scope Utilization Review Rn Required: No Is patient in pain?: Yes Allergies codeine Adverse Reaction (Severe, Verified 02/15/22 10:04) NauseaPenicillins Adverse Reaction (Unknown, Verified 02/15/22 10:04) Unknown Medications aspirin 81 mg tablet,delayed release (Adult Low Dose Aspirin) 81 mg PO DAILY heart health 12/01/19 [History Confirmed 02/15/22] metformin 1,000 mg tablet 1,000 mg PO BID DM 12/01/19 [History Confirmed 02/15/22] metoprolol succinate 50 mg tablet,extended release 24 hr 50 mg PO DAILY BP 12/01/19 [History Confirmed 02/15/22] rosuvastatin 5 mg tablet 5 mg PO DAILY cholesterol 12/01/19 [History Confirmed 02/15/22] omeprazole 20 mg capsule,delayed release 20 mg PO DAILY GERD 12/04/19 [History Confirmed 02/15/22] melatonin 10 mg tablet 20 mg PO HS PRN Sleep 04/26/20 [History Confirmed 02/15/22] dulaglutide 3 mg/0.5 mL subcutaneous pen injector (Trulicity) 3 mg subcut QWEEK Check with primary doctor 01/14/21 [History Confirmed 02/15/22] lisinopril 20 mg tablet 20 mg PO DAILY BP #90 tabs 04/11/21 [Rx Confirmed 02/15/22] biotin 2,500 mcg capsule 5,000 mcg PO DAILY SUPPLEMENT 01/16/22 [History Confirmed 02/15/22] cetirizine 10 mg tablet (Zyrtec) 10 mg PO DAILY PRN allergies 01/16/22 [History Confirmed 02/15/22] cholecalciferol (vitamin D3) 25 mcg (1,000 unit) tablet 25 mcg PO DAILY 01/16/22 [History Confirmed 02/15/22] dicyclomine 20 mg tablet 20 mg PO BID 01/16/22 [History Confirmed 02/15/22] glimepiride 4 mg tablet 4 mg PO BREAKFAST DM 01/16/22 [History Confirmed 02/15/22] insulin glargine 100 unit/mL (3 mL) subcutaneous pen (Basaglar KwikPen U-100 Insulin) 20 unit subcut QAM 01/16/22 [History Confirmed 02/15/22] glimepiride 2 mg tablet 2 mg PO DINNER DM 02/04/22 [History Confirmed 02/15/22] PFSH Medical History? Essential hypertension Fibromyalgia Hypertension IBS (irritable bowel syndrome) Mixed hyperlipidemia REGINA on CPAP Premature atrial contraction Pulmonary embolism Type 2 diabetes mellitus Vocal cord dysfunction Surgical History? History of bladder surgery History of carpal tunnel surgery History of cholecystectomy History of left heart catheterization (LHC) (~12/09/19) Family History? Mother Myocardial infarctionBrother DiabetesUncle Myocardial infarctionUncle Myocardial infarction Social History? Smoking Status:? Never smoker alcohol intake:? never substance use type:? does not use caffeine:? Yes Type: coffee Number of servings: 1 and tea HPI HPI HPI: 66-year-old female who was recently hospitalized with ileus. When her bowel function returned she had blood in her stool.? She says it was around 10 years since her last colonoscopy and she has never had an EGD.? Currently she says she is tolerating diet with no abdominal pain or blood in the stool.? She is having normal bowel function for her. ROS General General: Yes fatigue; No weight change, appetite, colon cancer, breast cancer or weakness HEENT HEENT: Yes difficulty swallowing and swollen glands; No eye injury, eye surgery or hoarseness Endo Endocrine: Yes diabetes mellitus; No thyroid disease, thyroid cancer, Hair loss, heat intolerance or cold intolerance Skin Skin: No rash or changing moles Breast Breast: No left breast lump, right breast lump, nipple discharge, breast pain, abnormal mammogram, abnormal US or breast enlargement Musc Musculoskeletal: Yes arthritis; No back problems, rheumatoid arthritis, gout or joint pain Cardio Cardiovascular: Yes high blood pressure; No murmur, pacemaker, heart disease, atrial fibrillation, heart attack, heart stent, palpitations, shortness of breat with exertion or chest pain Psych Psychiatric: No depression, anxiety or hearing voices Resp Respiratory: Yes shortness of breath, Yes sleep apnea, No cough, No COPD, No asthma, No emphysema and No wheezing Additional Details: uses cpap Gastro Gastrointestinal: Yes abdominal pain, No nausea or vomiting, Yes diarrhea, Yes constipation, No blood in stool, Yes acid reflux, Yes hemorrhoids, No ulcers, No gallbladder problem and No black,tarry stools Additional Details: Has IBS Ryan Hematologic: Yes blood clots Additional Details: h/o clots years ago. Neuro Neurologic: No system reviewed and no additional complaints, except as documented, No as per HPI, No abnormal gait, No abnormal hearing, No abnormal movements, No abnormal speech, No behavioral changes, No burning sensations, No confusion, No convulsions, No disequilibrium, No dizziness, No localized weakness, No frequent falls, No headache(s), No lack of coordination, No loss of vision, No memory loss, No numbness, No other visual disturbances, No radicular pain, No restless legs, No sensory deficit, No syncope, No tingling, No tremor(s), No weakness and No other Exam Const General: cooperative Orientation: alert and oriented x3 HENMT Head: normal to inspection Neck Neck: normal visual inspection and full ROM Chest Chest palpation & inspection: normal inspection of the chest Resp Effort & Inspection: normal respiratory effort Auscultation: clear to auscultation bilaterally Cardio Rate: regular rate Rhythm: regular rhythm GI Inspection: non-distended Palpation: soft and nontender Skin General: no rashes or lesions noted Neuro General: patient alert and patient oriented x3 Extrem General: full ROM Psych Appearance: grossly normal Mental Status: mental status grossly normal Assessment and Plan Assessment and Plan (1) Blood in stool: ?Status:?Acute ?Plan: When the ileus resolves she had blood in her stool which has since resolved.? She says it was around 10 years since her last colonoscopy.? I recommend EGD and colonoscopy to evaluate as for the cause of the blood in the stool. I explained endoscopy in detail to the patient.? I explained the risks including but not limited to stroke or heart attack with anesthesia, perforation of the GI tract, bleeding, infection.? I explained that any of these could necessitate further emergency surgery.? The patient understands and all questions were answered sufficiently.? The patient wishes to proceed with procedure. Oumar Hahn MD Pager: [facility] [address] [place] [address], [address] [place] [address] Office: I have examined the patient and the H&P has been reviewed. There are no clinical changes since date of exam.
--- NOTE | 2022-03-28 08:33 | OP.EGD_ITS ---
Patient Name: Aaliyah Shaw Procedure Date: 03/28/2022 8:03 AM Date of : 1955 Age: 67 Procedure: Upper GI endoscopy Indications: Hematochezia Providers: Oumar Hahn MD Medicines: Monitored Anesthesia Care Patient Profile: This is a 67 year old female. Refer to note in patient chart for documentation of history and physical. Complications: No immediate complications. Procedure: Pre-Anesthesia Assessment: - Prior to the procedure, a History and Physical was performed, and patient medications and allergies were reviewed. The patient's tolerance of previous anesthesia was also reviewed. The risks and benefits of the procedure and the sedation options and risks were discussed with the patient. All questions were answered, and informed consent was obtained. Prior Anticoagulants: The patient has taken no previous anticoagulant or antiplatelet agents. ASA Grade Assessment: II - A patient with mild systemic disease. After reviewing the risks and benefits, the patient was deemed in satisfactory condition to undergo the procedure. After obtaining informed consent, the endoscope was passed under direct vision. Throughout the procedure, the patient's blood pressure, pulse, and oxygen saturations were monitored continuously. The Endoscope was introduced through the mouth, and advanced to the fourth part of duodenum. The upper GI endoscopy was accomplished without difficulty. The patient tolerated the procedure well. Scope In: 8:12:37 AM Scope Out: 8:16:35 AM Total Procedure Duration Time 0 hours 3 minutes 58 seconds Findings: The esophagus was normal. The examined duodenum was normal. A single medium pedunculated polyp with no bleeding and no stigmata of recent bleeding was found in the stomach. The polyp was removed with a hot snare. Resection and retrieval were complete. Impression: - Normal esophagus. - Normal examined duodenum. - A single gastric polyp. Resected and retrieved. Recommendation: - Discharge patient to home. - Resume previous diet. - Continue present medications. - Await pathology results. Procedure Code(s): --- Professional --- 00560, Esophagogastroduodenoscopy, flexible, transoral; with removal of tumor(s), polyp(s), or other lesion(s) by snare technique Diagnosis Code(s): --- Professional --- K31.7, Polyp of stomach and duodenum K92.1, Melena (includes Hematochezia) CPT copyright 2017 [employer]. All rights reserved. The codes documented in this report are preliminary and upon adjuster electrical contacts review may be revised to meet current compliance requirements. Oumar Hahn MD 03/28/2022 8:32:36 AM This report has been signed electronically. Number of Addenda: 0 Note Initiated On: 03/28/2022 8:03 AM
--- NOTE | 2022-03-28 08:34 | OP.CCLET_ITS ---
03/28/2022 Matthew Adan MD [address] [id number] Re : Upper GI endoscopy procedure for Aaliyah Shaw Dear Dr. Adan This procedure was performed on Monday, March 28, 2022. My impressions and recommendations are as follows: Impressions : - Normal esophagus. - Normal examined duodenum. - A single gastric polyp. Resected and retrieved. Recommendations : - Discharge patient to home. - Resume previous diet. - Continue present medications. - Await pathology results. My findings are described in the full procedure note, which is enclosed. If I can be of further assistance, please feel free to contact me at Doctor phone number(s): , Work: . Sincerely, Oumar Hahn MD 03/28/2022 8:32:36 AM This report has been signed electronically.
[2022-03-28 08:35] VITALS: BP 103/61; BP 147/79; PULSE 65; RESP 14; TEMP 36.6; O2SAT 95
--- NOTE | 2022-03-28 08:38 | OP.CCLET_ITS ---
03/28/2022 Matthew Adan MD [address] [place] [address] Re : Colonoscopy procedure for Aaliyah Shaw Dear Dr. Adan This procedure was performed on Monday, March 28, 2022. My impressions and recommendations are as follows: Impressions : - The entire examined colon is normal on direct and retroflexion views. - No specimens collected. Recommendations : - Discharge patient to home. - Resume previous diet. - Continue present medications. - Repeat colonoscopy in 10 years for screening purposes. My findings are described in the full procedure note, which is enclosed. If I can be of further assistance, please feel free to contact me at Doctor phone number(s): , Work: . Sincerely, Oumar Hahn MD 03/28/2022 8:38:00 AM This report has been signed electronically.
--- NOTE | 2022-03-28 08:38 | OP.COLON_ITS ---
Patient Name: Aaliyah Shaw Procedure Date: 03/28/2022 8:17 AM Date of : 1955 Age: 67 Procedure: Colonoscopy Indications: Rectal bleeding Providers: Oumar Hahn MD Medicines: Monitored Anesthesia Care Patient Profile: This is a 67 year old female. Refer to note in patient chart for documentation of history and physical. Last Colonoscopy: 3 years ago. Complications: No immediate complications. Procedure: Pre-Anesthesia Assessment: - Prior to the procedure, a History and Physical was performed, and patient medications and allergies were reviewed. The patient's tolerance of previous anesthesia was also reviewed. The risks and benefits of the procedure and the sedation options and risks were discussed with the patient. All questions were answered, and informed consent was obtained. Prior Anticoagulants: The patient has taken no previous anticoagulant or antiplatelet agents. ASA Grade Assessment: II - A patient with mild systemic disease. After reviewing the risks and benefits, the patient was deemed in satisfactory condition to undergo the procedure. After I obtained informed consent, the scope was passed under direct vision. Throughout the procedure, the patient's blood pressure, pulse, and oxygen saturations were monitored continuously. The pediatric colonoscope was introduced through the anus and advanced to the cecum, identified by appendiceal orifice and ileocecal valve. The colonoscopy was performed without difficulty. The patient tolerated the procedure well. The quality of the bowel preparation was good. Scope In: 8:19:42 AM Scope Withdrawal Time 0 hours 6 minutes 32 seconds Scope Out: 8:32:24 AM Total Procedure Duration Time 0 hours 12 minutes 42 seconds Findings: The entire examined colon appeared normal on direct and retroflexion views. Impression: - The entire examined colon is normal on direct and retroflexion views. - No specimens collected. Recommendation: - Discharge patient to home. - Resume previous diet. - Continue present medications. - Repeat colonoscopy in 10 years for screening purposes. Procedure Code(s): --- Professional --- 50349, Colonoscopy, flexible; diagnostic, including collection of specimen(s) by brushing or washing, when performed (separate procedure) Diagnosis Code(s): --- Professional --- K62.5, Hemorrhage of anus and rectum CPT copyright 2017 [employer]. All rights reserved. The codes documented in this report are preliminary and upon window repairer review may be revised to meet current compliance requirements. Oumar Hahn MD 03/28/2022 8:38:00 AM This report has been signed electronically. Number of Addenda: 0 Note Initiated On: 03/28/2022 8:17 AM
[2022-03-28 08:40] VITALS: BP 107/65; BP 147/79; PULSE 66; RESP 14; O2SAT 95
[2022-03-28 08:45] VITALS: BP 109/65; BP 147/79; PULSE 64; RESP 14; O2SAT 96
[2022-03-28 08:50] VITALS: BP 110/72; BP 147/79; PULSE 64; RESP 16; TEMP 36.8; O2SAT 97
[2022-03-28 09:18] VITALS: BP 147/79
== END 2022-03-28 09:20 | disposition home or self-care (01) ==
LOC: EN 06:59 → AC 07:01
PROVIDERS: PCP Family Medicine; Referring Provider Family Medicine; Visit Provider Surgery
PROC: 0DJD8ZZ Inspection of Lower Intestinal Tract, Via Natural or Artificial Opening Endoscopic (ICD-10-PCS; CPT 45378; principal; 2022-03-28 07:55)
DX: K31.7 Polyp of stomach and duodenum (principal); Z79.4 Long term (current) use of insulin; E11.9 Type 2 diabetes mellitus without complications; K62.5 Hemorrhage of anus and rectum; G47.33 Obstructive sleep apnea (adult) (pediatric); I10 Essential (primary) hypertension; E78.5 Hyperlipidemia, unspecified; Z79.82 Long term (current) use of aspirin; Z79.899 Other long term (current) drug therapy; Z79.84 Long term (current) use of oral hypoglycemic drugs; Z86.711 Personal history of pulmonary embolism
CPT/HCPCS: 45378; 43251; 82962; 88305; J7120; J2405

== ENCOUNTER → 2022-06-09 | Outpatient (CLI) | payer MEDICARE, SELFPAY | END | disposition home or self-care (01) | LOC: LABSPEC 11:16 | PROVIDERS: PCP Family Medicine; Referring Provider Family Medicine; Visit Provider Family Medicine | DX: R30.0 Dysuria (principal) | CPT/HCPCS: 87077; 87086; 87088; 87186 ==

== ENCOUNTER → 2022-07-14 | Outpatient (CLI) | payer MEDICARE, SELFPAY ==
[2022-07-14 09:23] LABS: Mucous, Urine 0 SEEN /hpf (<or=2+); Red Blood Cells-Urine 0 SEEN /hpf (0-5); Squamous Epithelial Cells - UA 0 SEEN /hpf (5-10)
[2022-07-14 10:00] LABS: Color, Urine Yellow (Yellow); Glucose, Dipstick Normal (Normal); Ketone-Dipstick 15 mg/dl (Negative); Leukocyte Esterase-Dipstick 25 /ul (Negative); Nitrite-Dipstick Negative (Negative); Occult Blood-Urine 10 /ul (Negative); Protein-Dipstick Negative (Negative); Urine Bilirubin Dipstick Negative (Negative); Urine Clarity Sl. Cloudy (Clear); Urine Urobilinogen Normal (Normal)
[2022-07-14 10:05] LABS: Bacteria 2+ /hpf (None Seen); White Blood Cells 10-25 SEEN /hpf (0-5)
== END | disposition home or self-care (01) ==
LOC: MFPLAB 09:19
PROVIDERS: PCP Family Medicine; Visit Provider Family Medicine
DX: N30.90 Cystitis, unspecified without hematuria (principal)
CPT/HCPCS: 81001; 87077; 87086; 87088; 87101; 87186

== ENCOUNTER → 2022-08-09 | Outpatient (CLI) | payer MEDICARE, SELFPAY ==
--- NOTE | 2022-08-09 14:00 | RAD_ITS ---
STUDY: X-RAY - CERVICAL SPINE REASON FOR EXAM: Female, 67 years old. Neck pain. TECHNIQUE: 5 view(s) of the cervical spine were obtained on 6 images. COMPARISON: June 08, 2021. FINDINGS: Osteopenia. Normal anterior atlantoaxial articulation. Normal odontoid process. Normal cervical lordosis. Diffuse uncovertebral and facet sclerosis. Minimal intervertebral disc space narrowing at C5-6, C6-7 and C7-T1. Mild anterior bony neural foraminal encroachment at C5-6 and C6-7 bilaterally. Normal soft tissues. RAD/Cerv Spine 4 or 5 Views IMPRESSION: Osteopenia with mild lower cervical spondylosis as described. No acute abnormality, evidence of erosive changes/fusion. Electronically Signed: Yordan Jensen, at 15:34 EDT ,
== END | disposition home or self-care (01) ==
PROVIDERS: PCP Family Medicine; Referring Provider Family Medicine; Visit Provider Family Medicine
DX: M54.2 Cervicalgia (principal); N39.0 Urinary tract infection, site not specified
CPT/HCPCS: 72050; 87086; 87088

== ENCOUNTER 2022-08-21 10:03 | Outpatient (RCR) | payer MEDICARE, SELFPAY ==
--- NOTE | 2022-08-21 12:38 | HP.PTEVAL ---
Patient's Visit Information REENA LAWRENCE is a 67 year old F referred to Physical Therapy by Dr. Matthew Adan MD with a diagnosis of NECK PAIN. Date of Evaluation: 08/21/22 Physical Therapist: Bertha Brennan PT, Cert MDT - Visit Plan Frequency: 2-3x /Week Duration: 4-6 Weeks Plan: *CHECK AUTH: RECORD # OF VISITS APPROVED AND EXPIRATION DATE. CHECK CODES APPROVED WITH POC*. US, GENTLE STM, POSTURE CORRECTION/STRENGTHENING, INSTRUCTION IN APPROPRIATE BODY MECHANICS AND ACTIVITY MODIFICATIONS. ARACELI UE ROM, STRETCHING AND STRENGTHENING. HEP INSTRUCTION. - Subjective Diagnosis: NECK PAIN. Work/Leisure: RETIRED. Disability: NO. Present symptoms: ARACELI NECK PAIN AND ARACELI UE SX'S L > R. L UE PAIN, NUMBNESS AND TINGLING ALL THE WAY DOWN ARM INTO HAND AND FINGERS. R UE PAIN TO ELBOW INTERMITTENTLY. INTERMITTENT ARACELI FINGER NUMBNESS. HEADACHES - RECENTLY A FEW TIMES A WEEK. 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 Present since: ABOUT 6 MONTHS AGO FOR CURRENT SX'S SHE IS HERE FOR TODAY. Pain Scale: Worst - 9/10 Least - 2/10. Currently: 2/10. Commenced as a result of: NO APPARENT REASON. Symptoms at onset: NECK TIGHTNESS ALL AROUND AT LEAST A YEAR AGO. Worse: LIFTING THINGS TOO HEAVING, TURNING NECK THE WRONG WHY, LYING ON LEFT SIDE > RIGHT, MOVING L SHLD WRONG. Better: IBUPROFEN AND TYLONOL WITH SOME BENEFIT TEMPORARILY, TOPICAL CREAM - OTC. Disturbed sleep: YES. Previous history/Previous treatment: BREATHING THERAPY - HAS HELPED SOB BUT DOESN'T HELP PAIN AND TIGHTNESS IN CHEST AND NECK FROM VOCAL CORD dyskinesia. CPAP MACHINE. Dizziness: YES - CHRONIC. Tinnitis: occasionally. Nausea: occasionally. Shortness of Breath: yes. Difficulty Swollowing: yes. Gait: NO AD'S BUT FURNITURE WALKS IN THE MORNINGS DUE TO DIZZINESS. Accidents: NO. Unexplained weight loss: NO. Imaging: THROAT MRI ORDERED BUT NOT APPROVED. NECK X-RAYS - ARTHRITIS PER PATIENT REPORT. PMH/Recent major surgery: IBS, HTN, IDDM, FREQUENT UTI'S/YEAST INFECTIONS - Objective Sitting Posture/Standing Posture: FH. RSH'S. NO TORITCOLLIS. Active Correction of posture: NE. Other Observations: INDEP GAIT AND TRANSFERS. Sensory deficit: ARACELI UE LIGHT TOUCH SENSATION GROSSLY INTACT AND SYMMETRICAL. ROM deficit: ARACELI SHLD ELEVATION GROSSLY 40% LIMITED AND WITH C/O ERP L > R. ARACELI ELBOW, WRIST AND HAND ROM WFL. Motor deficit: ARACELI UE WEAKNESS: SHLD'S 3-/5, ELBOWS 4/4 AND TECHNICAL HEALTHCARE CONSULTANT: R 25 LBS, L 20 LBS. Reflexes: ARACELI UE'S 2/3. Cervical Mvmt Loss: Flex: MIN. Pro: NIL. Ext: KOMAL. Ret: KOMAL. RSB: MOD. LSB: MOD. R Rot: MOD. L Rot: MOD. PATIENT C/O INCREASED NECK PAIN AND LEFT SHLD AND UPPER ARM PAIN WITH CERVICAL ROM TESTING ALL PLANES. Postural strength: POOR. Palpation: TENDERNESS WITH PALPATION OF ARACELI NECK AND SHLD'S L > R. - Balance/Special Test Scores Oswestry Neck Score: 20 - Goals Goal 1:: DECREASE C/O NECK AND HEAD PAIN Goal Time Frame: 4-6 Weeks Goal 2:: IMPROVE PERSONAL CARE, LIFTING, READING, SLEEP, WORK, DRIVING AND RECREATIONAL FUNCTION Goal Time Frame: 4-6 Weeks Goal 3:: INSTRUCT IN PROPHYLAXIS Goal Time Frame: 4-6 Weeks - Anticipated Interventions Patient/Client Instruction: Educate patient on: Condition, Plan of Care, Risk Factors For the Purpose of:: To improve self management Therapeutic Exercise to Include: Strength training, Body mechanics, Postural training, Flexibilty training, Neuromotor development, Scapular Strength/Stabilization For the Purpose of:: To decrease pain, To improve muscle performance and motor function, To increase tolerance to activity/condition/position, To improve ability of physical actions for home/community/work/leisure Manual Therapy Techniques to Include: Trigger point massage, Soft tissue mobilization Comment: GENTLE For the Purpose of:: To decrease pain, To improve nutrient delivery to tissue Cryotherapy (ice pack, ice massage): Yes Thermo therapy (hot pack): Yes Ultrasound (thermal/non thermal): Yes For the Purpose of:: To decrease pain, To improve nutrient delivery to tissue Thank you for the opportunity to evaluate your patient. For Medicare and Medicare HMO plans, please review the plan of care and approve it. It will need to be FAXED BACK to us at [phone] for Medicare purposes. For Medicare only, by signing this I certify the plan of care. Please let me know if there are questions or concerns regarding this plan of care. Physician Signature: Date:
--- NOTE | 2022-10-31 13:09 | HP.PT.NRP ---
REENA LAWRENCE was seen in my office for initial evaluation on 08/21/22. The following Plan of Care was established for this patient: Initial Frequency: 2-3x /Week Initial Duration: 4-6 Weeks Patient/Client Instruction: Educate patient on: Condition, Plan of Care, Risk Factors For the Purpose of:: To improve self management Therapeutic Exercise to Include: Strength training, Body mechanics, Postural training, Flexibilty training, Neuromotor development, Scapular Strength/Stabilization For the Purpose of:: To decrease pain, To improve muscle performance and motor function, To increase tolerance to activity/condition/position, To improve ability of physical actions for home/community/work/leisure Manual Therapy Techniques to Include: Trigger point massage, Soft tissue mobilization Comment: GENTLE For the Purpose of:: To decrease pain, To improve nutrient delivery to tissue Cryotherapy (ice pack, ice massage): Yes Thermo therapy (hot pack): Yes Ultrasound (thermal/non thermal): Yes For the Purpose of:: To decrease pain, To improve nutrient delivery to tissue This patient was last seen in our office 08/21/22. Pertinent comments regarding their Physical therapy will appear below: SEATED ARACELI PIRIFORMIS STRETCHING, SUPINE FROG LEG HIP ADDUCTOR STRETCHING, SUPINE ARACELI LE DURAL STRETCHING, BRIDGES WITH KEGEL, AND BENT KNEE FALL OUTS FOR LUMBAR STABILITY. At this point I will be discontinuing this patient from physical therapy. I would be happy to see this patient again in the future if found appropriate by the physician. Thank you! Bertha Brennan, PT, Cert MDT Balance/Gait/Functional tests - Balance/Special Test Scores Oswestry Neck Score: 20
--- NOTE | 2022-10-31 13:21 | HP.PT.NRP ---
REENA LAWRENCE was seen in my office for initial evaluation on 08/21/22. The following Plan of Care was established for this patient: Initial Frequency: 2-3x /Week Initial Duration: 4-6 Weeks Patient/Client Instruction: Educate patient on: Condition, Plan of Care, Risk Factors For the Purpose of:: To improve self management Therapeutic Exercise to Include: Strength training, Body mechanics, Postural training, Flexibilty training, Neuromotor development, Scapular Strength/Stabilization For the Purpose of:: To decrease pain, To improve muscle performance and motor function, To increase tolerance to activity/condition/position, To improve ability of physical actions for home/community/work/leisure Manual Therapy Techniques to Include: Trigger point massage, Soft tissue mobilization Comment: GENTLE For the Purpose of:: To decrease pain, To improve nutrient delivery to tissue Cryotherapy (ice pack, ice massage): Yes Thermo therapy (hot pack): Yes Ultrasound (thermal/non thermal): Yes For the Purpose of:: To decrease pain, To improve nutrient delivery to tissue This patient was last seen in our office 08/21/22. Pertinent comments regarding their Physical therapy will appear below: This patient has not returned to Physical Therapy and is appropriate to return to MD for further follow-up as needed. At this point I will be discontinuing this patient from physical therapy. I would be happy to see this patient again in the future if found appropriate by the physician. Thank you! Bertha Brennan, PT, Cert MDT Balance/Gait/Functional tests - Balance/Special Test Scores Oswestry Neck Score: 20
== END 2022-08-21 19:00 | disposition home or self-care (01) ==
LOC: PT 10:03
PROVIDERS: PCP Family Medicine; Referring Provider Family Medicine; Visit Provider Family Medicine
DX: M54.2 Cervicalgia (principal)
CPT/HCPCS: 97162

== ENCOUNTER → 2022-08-22 | Outpatient (CLI) | payer MEDICARE, SELFPAY ==
[2022-08-22 10:11] LABS: Anion Gap 7 (5-15); BUN 15 mg/dL (7-18); BUN/Creat Ratio 26.6 RATIO (10-20); Calcium,Total 8.9 mg/dL (8.5-10.1); Chloride 106 mmol/L (98-107); Cholesterol 152 mg/dL (200); Creatinine, Serum 0.56 mg/dL (0.55-1.02); EST Glomerular Filtration Rate 114 mL/min (>60); Est Glom Filt Rate - Afr Amer 138 mL/min (>60); Glucose 179 mg/dL (74-106); High Density Lipoprotein 49 mg/dL; Potassium 3.9 mmol/L (3.5-5.1); Sodium Level 139 mmol/L (136-145); Triglycerides 201 mg/dL; Very Low Density Lipoprotein 40 mg/dL (5-40)
== END | disposition home or self-care (01) ==
LOC: MFPLAB 08:37
PROVIDERS: PCP Family Medicine; Referring Provider Family Medicine; Visit Provider Family Medicine
DX: I10 Essential (primary) hypertension (principal)
CPT/HCPCS: 36415; 80048; 80061

== ENCOUNTER → 2022-10-03 | Outpatient (CLI) | payer MEDICARE, SELFPAY | END | disposition home or self-care (01) | LOC: LABSPEC 15:31 | PROVIDERS: PCP Family Medicine; Referring Provider Family Medicine; Visit Provider Family Medicine | DX: N39.0 Urinary tract infection, site not specified (principal) | CPT/HCPCS: 87077; 87086; 87088; 87186 ==

== ENCOUNTER → 2022-10-17 | Outpatient (CLI) | payer MEDICARE, SELFPAY | END | disposition home or self-care (01) | PROVIDERS: PCP Family Medicine; Visit Provider Family Medicine | DX: N39.0 Urinary tract infection, site not specified (principal) | CPT/HCPCS: 87077; 87086; 87088 ==

== ENCOUNTER → 2022-11-14 | Outpatient (CLI) | payer MEDICARE, SELFPAY ==
--- NOTE | 2022-11-14 15:23 | US_ITS ---
INDICATION: UTI EXAMINATION: Ultrasound US Kidney(s) complete (eg, kidneys and bladder) COMPARISON: Abdominal CT 02/03/2022. FINDINGS: 103 grayscale ultrasound images of the kidneys and urinary bladder. KIDNEYS: Bilateral kidneys without shadowing nephrolith or hydronephrosis.] 1.9 cm left renal anechoic lesion consistent with cyst. URINARY BLADDER:?Adequately distended urinary bladder is without obvious abnormality, 196 cc volume. Postvoid residual 37 cc. Bilateral ureteral jets are identified. LIVER: Echogenic hepatic parenchyma. No significant free fluid. US/Kidney and Bladder IMPRESSION: 2 cm left renal cyst. Echogenic hepatic parenchyma most commonly associated with fatty infiltration the liver. Electronically Signed: Oumar Kline MD at 5:11 EDT ,
== END | disposition home or self-care (01) ==
LOC: US 15:19
PROVIDERS: PCP Family Medicine; Referring Provider Urology; Visit Provider Urology
DX: N39.0 Urinary tract infection, site not specified (principal)
CPT/HCPCS: 76770

== ENCOUNTER → 2023-02-19 | Outpatient (CLI) | payer MEDICARE, SELFPAY ==
[2023-02-19 15:48] LABS: Microalbumin:Creatinine Ratio 19.3 mg/g CRE (<30 mg/g CRE)
[2023-02-19 15:56] LABS: AST(SGOT) 34 U/L (15-37); Alanine Aminotransfer ALT/SGPT 45 U/L (13-56); Albumin, Serum 3.7 g/dL (3.2-5.0); Alkaline Phosphatase 73 U/L (45-117); Anion Gap 7 (5-15); BUN 15 mg/dL (7-18); BUN/Creat Ratio 28.6 RATIO (10-20); Calcium,Total 9.1 mg/dL (8.5-10.1); Chloride 108 mmol/L (98-107); Cholesterol 145 mg/dL (200); Creatinine, Serum 0.52 mg/dL (0.55-1.02); EST Glomerular Filtration Rate 124 mL/min (>60); Est Glom Filt Rate - Afr Amer 150 mL/min (>60); Globulin 3.6 g/dL (2.2-4.2); Glucose 127 mg/dL (74-106); High Density Lipoprotein 67 mg/dL; Potassium 4.6 mmol/L (3.5-5.1); Protein, Total 7.3 g/dL (6.4-8.2); Sodium Level 141 mmol/L (136-145); Triglycerides 201 mg/dL; Very Low Density Lipoprotein 40 mg/dL (5-40)
== END | disposition home or self-care (01) ==
LOC: MFPLAB 11:10
PROVIDERS: PCP Family Medicine; Visit Provider Family Medicine
DX: E11.9 Type 2 diabetes mellitus without complications (principal); I10 Essential (primary) hypertension
CPT/HCPCS: 36415; 80053; 80061; 82043; 82570

== ENCOUNTER → 2023-02-23 | Outpatient (CLI) | payer MEDICARE, SELFPAY ==
--- NOTE | 2023-02-23 14:33 | BI_ITS ---
MAMMOGRAPHY - BILATERAL SCREENING REASON FOR EXAM: Female, 67 years old. Routine annual screening examination. PERTINENT HISTORY: Aunt with breast cancer. TECHNIQUE: Digital bilateral breast ramya (3D mammographic acquisition) in the CC and MLO projections. 2-D mediolateral oblique (MLO) and craniocaudad (CC) views of both breasts were obtained. CAD: Full Field Digital Mammography with Computer Added Detection was performed. COMPARISON: Comparison is made with prior study dated July 19, 2020 and December 06, 2018. FINDINGS: Breast Composition: There are scattered areas of fibroglandular density. There are no dominant masses or suspicious calcifications. Stable small benign-appearing bilateral axillary lymph nodes. No other significant abnormalities are identified. There has been no significant change since the prior study. BI/SCRN MAMM (CAD)W/RAMYA BILAT IMPRESSION: Stable bilateral screening mammogram. Yearly follow-up mammogram recommended. (A) ASSESSMENT CATEGORY: BIRADS Category 2: Benign. A letter regarding these results will be sent to the patient by the facility within 30 days. Approximately 10% of breast cancers are not detected by mammography. A normal mammogram should not delay biopsy of a clinically suspicious abnormality. [id number] Electronically Signed: Ian Moore MD at 15:08 EDT ,
== END | disposition home or self-care (01) ==
LOC: OPBI 13:53
PROVIDERS: PCP Family Medicine; Referring Provider Family Medicine; Visit Provider Family Medicine
DX: Z12.31 Encounter for screening mammogram for malignant neoplasm of breast (principal)
CPT/HCPCS: 77063; 77067

== ENCOUNTER → 2023-03-20 | Outpatient (CLI) | payer MEDICARE, SELFPAY ==
--- NOTE | 2023-03-20 13:35 | RAD_ITS ---
STUDY: X-RAY CHEST REASON FOR EXAM: Female, 68 years old. SOB TECHNIQUE: PA and lateral views of the chest. COMPARISON: None. FINDINGS: The lungs are clear and expanded. There is no demonstrated pleural abnormality. Normal size heart. Normal mediastinum and guanakito. Normal visualized pulmonary arteries. Normal visualized aortic arch and descending thoracic aorta. Normal visualized thoracic spine. Normal visualized ribs, clavicles, and shoulders. There is no demonstrated abnormality of the visualized soft tissue structures of the upper abdomen. RAD/Chest PA and Lateral IMPRESSION: Normal x-ray examination of the chest. Electronically Signed: José Manuel Lake MD at 20:51 EDT ,
[2023-03-20 14:20] LABS: Absolute Lymphocyte Count 2.19 X10^3/uL (0.83-4.51); Absolute Neutrophil Count 5.6 X10^3/uL (2.0-7.7); Basophil# 0.04 X10^3/uL; Basophil% 0.5 % (0-1); Eosinophil# 0.11 X10^3/uL; Eosinophils% 1.3 % (0-5); Hematocrit 39.1 % (37-47); Hemoglobin 12.5 g/dL (12.0-15.0); Lymphocyte # 2.19 X10^3/ul (0.83-4.51); Lymphocyte % 25.5 % (19-41); Mean Corpuscular Hgb 28.7 pg (27.0-32.0); Mean Corpuscular Volume 89.9 fL (81-99); Mean Platelet Vol. 11.7 fl (6.2-12.0); Monocyte# 0.59 X10^3/uL; Monocyte% 6.9 % (0-10); NRBC Flagged by Analyzer 0 % (0-5); Neutrophil # 5.62 X10^3/uL (2.7-7.7); Neutrophil % 65.3 % (47-70); Platelet Count 180 K/mm3 (150-450); RBC Distribution Width CV 14.1 % (11.6-14.6); RBC Distribution Width SD 45.6 fl (35.1-43.9); Red Blood Count 4.35 M/mm3 (4.2-5.4); White Blood Count 8.6 K/mm3 (4.4-11.0)
[2023-03-20 14:43] LABS: BNP,B-Type NATRIURETIC PEPTIDE 33.7 pg/mL (0-100)
[2023-03-20 14:45] LABS: Anion Gap 2 (5-15); BUN 14 mg/dL (7-18); BUN/Creat Ratio 20.1 RATIO (10-20); Calcium,Total 8.7 mg/dL (8.5-10.1); Chloride 111 mmol/L (98-107); EST Glomerular Filtration Rate 90 mL/min (>60); Est Glom Filt Rate - Afr Amer 108 mL/min (>60); Glucose 103 mg/dL (74-106); Potassium 4.5 mmol/L (3.5-5.1); Sodium Level 139 mmol/L (136-145)
== END | disposition home or self-care (01) ==
LOC: RAD 13:31
PROVIDERS: PCP Family Medicine; Referring Provider Nurse Practitioner Gerontology; Visit Provider Nurse Practitioner Gerontology
DX: R06.02 Shortness of breath (principal)
CPT/HCPCS: 36415; 71046; 80048; 83880; 85025

== ENCOUNTER → 2023-04-18 | Outpatient (CLI) | payer MEDICARE, SELFPAY ==
--- NOTE | 2023-04-18 13:40 | ECHOD_ITS ---
Reason For Study: SOB Procedure This was a 2D Doppler, Color Flow transthoracic echocardiogram. Exam performed in department. Left Ventricle Normal size and thickness. The left ventricular ejection fraction is 70 %. Left ventricular systolic function is hyperdynamic. Normal diastology for age. Right Ventricle Normal right ventricle. Atria The left atrium is mildly enlarged. Normal right atrium. Mitral Valve Trivial mitral valve insufficiency. Tricuspid Valve Normal pulmonary artery pressure. Mild to moderate (1-2+) tricuspid valve insufficiency. Aortic Valve Trisinus/trileaflet aortic valve. Pulmonic Valve The pulmonic valve is not well visualized. Trivial pulmonic valve insufficiency. Great Vessels Normal sized aortic root. Pericardium/Pleural No pericardial effusion. MMode/2D Measurements & Calculations LVIDd: 3.6 cm IVSd: 1.0 cm Ao root diam: 2.9 cm LVIDs: 2.0 cm LVPWd: 0.96 cm RVDd: 3.2 cm FS: 45.1 % LAV(MOD-bp): 35.8 ml LVAd ap4: 19.5 cm2 SV(MOD-sp4): 31.4 ml LAV(MOD-bp) Indexed: 21.1 ml/m2 LVLd ap4: 7.2 cm LAV(MOD-sp2): 35.9 ml EDV(MOD-sp4): 44.1 ml LAV(MOD-sp4): 32.7 ml EDV(sp4-el): 44.6 ml LVAs ap4: 8.8 cm2 LVLs ap4: 5.3 cm ESV(MOD-sp4): 12.7 ml ESV(sp4-el): 12.3 ml EF(MOD-sp4): 71.2 % EF(sp4-el): 72.4 % SV(sp4-el): 32.3 ml LA A4 area: 15.0 cm2 LA dimension(2D): 3.8 cm RA A4 area: 10.6 cm2 TAPSE: 2.3 cm Time Measurements MV dec time: 0.24 sec Doppler Measurements & Calculations MV E max julián: 80.2 cm/sec Lat Peak E' Julián: 9.7 cm/sec Med Peak E' Julián: 6.8 cm/sec MV A max julián: 88.9 cm/sec E/E' lat: 8.3 E/E' med: 11.8 MV E/A: 0.90 Ao V2 max: 191.0 cm/sec LV V1 max: 136.8 cm/sec MV dec slope: 330.4 cm/sec2 Ao max P.6 mmHg LV V1 max P.5 mmHg Ao V2 mean: 124.2 cm/sec LV V1 mean P.9 mmHg Ao mean P.1 mmHg LV V1 mean: 92.3 cm/sec Ao V2 VTI: 41.4 cm LV V1 VTI: 29.2 cm AV (velocity ratio): 0.70 PA V2 max: 113.5 cm/sec TR max julián: 248.9 cm/sec TR max P.8 mmHg ECHO/Echo Complete Interpretation Summary The left ventricular ejection fraction is 70 %. Left ventricular systolic function is hyperdynamic. The left atrium is mildly enlarged. Mild to moderate (1-2+) tricuspid valve insufficiency. Ordering Physician: Liana Oropeza Referring Physician: Matthew Adan Performed By: Maria Alejandra Bowers, JH, RVT
== END | disposition home or self-care (01) ==
LOC: CVS 13:39
PROVIDERS: PCP Family Medicine; Referring Provider Nurse Practitioner Gerontology; Visit Provider Nurse Practitioner Gerontology
DX: R06.02 Shortness of breath (principal)
CPT/HCPCS: 93306

== ENCOUNTER → 2023-05-09 | Outpatient (CLI) | payer MEDICARE, SELFPAY ==
--- NOTE | 2023-05-09 13:18 | MRI_ITS ---
EXAM: MR CERVICAL SPINE WITHOUT INTRAVENOUS CONTRAST CLINICAL INDICATION: CERVICALGIA TECHNIQUE: Multiplanar and multisequence MR images of the cervical spine without intravenous contrast were performed. COMPARISON: Cervical spine radiographs, 08/09/2022. FINDINGS: VERTEBRAE: No significant abnormality. Normal vertebral bodies and posterior elements. Normal alignment. Normal craniocervical junction and cervicothoracic junction. No spondylolisthesis. There is preservation of the normal cervical lordosis. SPINAL CORD: Unremarkable in signal and morphology. SOFT TISSUES: No significant abnormality. No prevertebral soft tissue swelling. LYMPH NODES: No significant abnormality. There is no cervical adenopathy. DISCS/SPINAL CANAL/NEURAL FORAMINA: C2-C3: Mild bilateral facet arthrosis. No disc herniation, spinal canal stenosis, or neural foraminal narrowing. C3-C4: Left greater than right facet and uncovertebral joint arthrosis. Moderate left and mild right neural foraminal narrowing. No disc herniation or spinal canal stenosis. C4-C5: Mild to moderate left and mild right facet and uncovertebral joint arthrosis. Moderate left and mild right neural foraminal narrowing. No disc herniation or spinal canal stenosis. C5-C6: Mild bilateral facet and uncovertebral joint arthrosis. Mild bilateral neural foraminal narrowing. No disc herniation or spinal canal stenosis. C6-C7: Central disc herniation and mild bilateral facet and uncovertebral joint arthrosis. Mild spinal canal stenosis and mild bilateral neural foraminal narrowing. C7-T1: Mild disc bulge. No disc herniation, spinal canal stenosis, or neural foraminal narrowing. MRI/Spine Cervical (Routine) IMPRESSION: Mild multilevel degenerative changes. No critical spinal canal stenosis or spinal cord signal abnormality. Electronically Signed: Anupam Hawthorne DO at 20:09 EST ,
== END | disposition home or self-care (01) ==
PROVIDERS: PCP Family Medicine; Referring Provider Family Medicine; Visit Provider Family Medicine
DX: M54.2 Cervicalgia (principal)
CPT/HCPCS: 72141

== ENCOUNTER → 2023-08-28 | Outpatient (CLI) | payer MEDICARE, SELFPAY ==
[2023-08-28 14:21] LABS: ALB/GLOB Ratio 1.1 RATIO (0.9-2.4); AST(SGOT) 28 U/L (15-37); Alanine Aminotransfer ALT/SGPT 34 U/L (13-56); Albumin, Serum 3.7 g/dL (3.2-5.0); Alkaline Phosphatase 55 U/L (45-117); Anion Gap 7 (5-15); BUN 15 mg/dL (7-18); Chloride 107 mmol/L (98-107); Cholesterol 148 mg/dL (200); Creatinine, Serum 0.63 mg/dL (0.55-1.02); EST Glomerular Filtration Rate 101 mL/min (>60); Est Glom Filt Rate - Afr Amer 122 mL/min (>60); Globulin 3.4 g/dL (2.2-4.2); Glucose 121 mg/dL (74-106); High Density Lipoprotein 68 mg/dL; Potassium 3.8 mmol/L (3.5-5.1); Protein, Total 7.1 g/dL (6.4-8.2); Sodium Level 139 mmol/L (136-145); Triglycerides 148 mg/dL; Very Low Density Lipoprotein 30 mg/dL (5-40)
== END | disposition home or self-care (01) ==
LOC: MFPLAB 08:57
PROVIDERS: PCP Family Medicine; Visit Provider Family Medicine
DX: E11.9 Type 2 diabetes mellitus without complications (principal); E78.5 Hyperlipidemia, unspecified
CPT/HCPCS: 36415; 80053; 80061

== ENCOUNTER → 2024-02-25 | Outpatient (CLI) | payer MEDICARE, SELFPAY ==
[2024-02-25 16:08] LABS: Anion Gap 9 (5-15); BUN 17 mg/dL (7-18); BUN/Creat Ratio 27.5 RATIO (10-20); Calcium,Total 8.9 mg/dL (8.5-10.1); Chloride 108 mmol/L (98-107); Creatinine, Serum 0.62 mg/dL (0.55-1.02); EST Glomerular Filtration Rate 102 mL/min (>60); Est Glom Filt Rate - Afr Amer 124 mL/min (>60); Glucose 139 mg/dL (74-106); Potassium 3.8 mmol/L (3.5-5.1); Sodium Level 142 mmol/L (136-145)
== END | disposition home or self-care (01) ==
PROVIDERS: PCP Family Medicine; Referring Provider Family Medicine; Visit Provider Family Medicine
DX: R03.0 Elevated blood-pressure reading, without diagnosis of hypertension (principal)
CPT/HCPCS: 36415; 80048

== ENCOUNTER → 2024-06-06 | Outpatient (CLI) | payer MEDICARE, SELFPAY ==
[2024-06-06 10:59] LABS: Protein, Urine (Random) 31.9 mg/dL (<11.9); Protein:Creat Ratio 217 mg/g CRE (0-200)
[2024-06-06 11:25] LABS: Anion Gap 8 (5-15); BUN 17 mg/dL (7-18); BUN/Creat Ratio 37.4 RATIO (10-20); Calcium,Total 8.9 mg/dL (8.5-10.1); Chloride 109 mmol/L (98-107); Cholesterol 154 mg/dL (200); Creatinine, Serum 0.46 mg/dL (0.55-1.02); EST Glomerular Filtration Rate 146 mL/min (>60); Est Glom Filt Rate - Afr Amer 176 mL/min (>60); Glucose 109 mg/dL (74-106); High Density Lipoprotein 67 mg/dL; Potassium 3.8 mmol/L (3.5-5.1); Sodium Level 142 mmol/L (136-145); Triglycerides 151 mg/dL; Very Low Density Lipoprotein 30 mg/dL (5-40)
[2024-06-06 11:56] LABS: Hemoglobin A1c 6.4 % (3.8-5.6)
== END | disposition home or self-care (01) ==
LOC: MFPLAB 08:31
PROVIDERS: PCP Family Medicine; Referring Provider Family Medicine; Visit Provider Family Medicine
DX: E11.9 Type 2 diabetes mellitus without complications (principal)
CPT/HCPCS: 36415; 80048; 80061; 82570; 83036; 84156

== ENCOUNTER → 2024-06-12 | Outpatient (CLI) | payer MEDICARE, SELFPAY ==
--- NOTE | 2024-06-12 12:29 | BI_ITS ---
MAMMOGRAPHY - BILATERAL SCREENING REASON FOR EXAM: Female, 69 years old. Routine annual screening examination. PERTINENT HISTORY: Aunt with breast cancer. TECHNIQUE: Digital bilateral breast abdulaziz (3D mammographic acquisition) in the CC and MLO projections. 2-D mediolateral oblique (MLO) and craniocaudad (CC) views of both breasts were obtained. CAD: Full Field Digital Mammography with Computer Added Detection was performed. COMPARISON: Comparison is made with prior study dated February 23, 2023 and July 19, 2020. FINDINGS: Breast Composition: There are scattered areas of fibroglandular density. There are no dominant masses or suspicious calcifications. Stable bilateral fat-containing axillary lymph nodes. No other significant abnormalities are identified. There has been no significant change since the prior study. BI/SCREENING MAMM (CAD), BILAT IMPRESSION: Stable bilateral screening mammogram. Yearly follow-up mammogram recommended. (A) ASSESSMENT CATEGORY: BIRADS Category 2: Benign. A letter regarding these results will be sent to the patient by the facility within 30 days. Approximately 10% of breast cancers are not detected by mammography. A normal mammogram should not delay biopsy of a clinically suspicious abnormality. [id number] Electronically Signed: Ian Moore MD at 13:55 EST ,
== END | disposition home or self-care (01) ==
LOC: OPBI 12:28
PROVIDERS: PCP Family Medicine; Referring Provider Family Medicine; Visit Provider Family Medicine
DX: Z12.31 Encounter for screening mammogram for malignant neoplasm of breast (principal)
CPT/HCPCS: 77067

== ENCOUNTER → 2024-12-09 | Outpatient (CLI) | payer MEDICARE, SELFPAY ==
[2024-12-09 10:44] LABS: AST(SGOT) 31 U/L (<=31); Alanine Aminotransfer ALT/SGPT 33 U/L (<=34); Albumin, Serum 3.9 g/dL (3.4-4.8); Alkaline Phosphatase 64 U/L (35-104); Anion Gap 14 (5-15); BUN 14 mg/dL (4-19); BUN/Creat Ratio 29.1 RATIO (10-20); Calcium,Total 8.8 mg/dL (7.6-11.0); Carbon Dioxide 22.6 mmol/L (21.0-32.0); Chloride 106 mmol/L (98-108); Cholesterol 222 mg/dL (<=200); Globulin 2.6 g/dL (2.2-4.2); Glucose 117 mg/dL (70-99); Low Density Lipoprotein Calc. 99 mg/dL; Potassium 3.7 mmol/L (3.3-5.1); Triglycerides 377 mg/dL; Very Low Density Lipoprotein 75 mg/dL (5-40); cholesterol:hdl ratio screen 4.67
[2024-12-09 11:19] LABS: Creatinine, Urine (random) 159.00 mg/dL (28.00-217.00); Microalbumin,Random Urine 38.7 mg/L (<20 mg/L)
== END | disposition home or self-care (01) ==
LOC: MFPLAB 08:22
PROVIDERS: PCP Family Medicine; Referring Provider Family Medicine; Visit Provider Family Medicine
DX: E11.9 Type 2 diabetes mellitus without complications (principal)
CPT/HCPCS: 36415; 80053; 80061; 82043; 82570

== ENCOUNTER → 2025-03-12 | Outpatient (CLI) | payer MEDICARE, SELFPAY ==
--- NOTE | 2025-03-12 11:39 | STRESSREP_ITS ---
Stress Test Report Date: 03/12/2025 Procedure: Exercise tolerance test Indications: Dyspnea on exertion Consent: Per the patient Procedure: The patient exercised on a Jose Elias protocol for 4 minutes and 40 seconds achieving a peak heart rate of 151 bpm (99% predicted maximal heart rate) with a peak blood pressure 200/82 mmHg and a peak MET capacity of approximately 7.0 MET's. The baseline ECG demonstrated sinus rhythm. The peak exercise ECG showed sinus tachycardia with no ischemic changes. There were no cardiac dysrhythmias pretest, during exercise, or recovery. Hypertensive blood pressure response to exercise. The functional capacity was considered suboptimal. The patient had no complaints of chest discomfort during exercise or recovery. The examination was discontinued secondary to target heart rate being achieved and dyspnea. Impression: 1. Technically adequate (percent predicted maximal heart rate greater than 85%) exercise tolerance test 2. Peak exercise ECG with no ischemic changes. 3. There were no cardiac dysrhythmias during exercise or recovery 4. Hypertensive blood pressure response to exercise. No chest pain reported. Dyspnea reported with exercise. This note was generated with [employer] software. It may contain incorrect words, spelling, and punctuation that were not noted in checking the note before signing.
== END | disposition home or self-care (01) ==
PROVIDERS: PCP Family Medicine; Referring Provider Family Medicine; Visit Provider Family Medicine
DX: R06.02 Shortness of breath (principal)
CPT/HCPCS: 93017

== ENCOUNTER → 2025-03-19 | Outpatient (CLI) | payer MEDICARE, SELFPAY ==
[2025-03-19 13:03] LABS: Hematocrit 38.7 % (37-47); Hemoglobin 12.5 g/dL (12.0-15.0); Immature Granulocytes Count 0.020 X10^3/uL (0.0-0.0); Mean Corp Hgb Conc 32.3 g/dL (32-36); Mean Corpuscular Volume 85.2 fL (81-99); Mean Platelet Vol. 11.1 fl (6.2-12.0); NRBC Flagged by Analyzer 0 % (0-5); Platelet Count 193 K/mm3 (150-450); RBC Distribution Width CV 15.1 % (11.6-14.6); RBC Distribution Width SD 46.6 fl (35.1-43.9); Red Blood Count 4.54 M/mm3 (4.2-5.4); White Blood Count 7.7 K/mm3 (4.4-11.0)
[2025-03-19 13:56] LABS: Pro- Brain NATRIURETIC PEPTIDE < 36 pg/mL (<=900)
== END | disposition home or self-care (01) ==
LOC: LAB 12:08
PROVIDERS: PCP Family Medicine; Referring Provider Physician Assistant Medical; Visit Provider Physician Assistant Medical
DX: R06.02 Shortness of breath (principal)
CPT/HCPCS: 36415; 83880; 85025

== ENCOUNTER → 2025-04-08 | Outpatient (CLI) | payer MEDICARE, SELFPAY ==
--- NOTE | 2025-04-08 13:35 | ECHOCS_ITS ---
Reason For Study Reason For Study: Dyspnea/SOB Procedure This was a 2D Doppler, Color Flow transthoracic echocardiogram. The study was technically difficult. Contrast injection was performed. Exam performed in department. Left Ventricle Normal LV size. The left ventricular ejection fraction is 60 %. Stage 1 diastolic dysfunction. No regional wall motion abnormalities noted. Right Ventricle Normal RV size. Normal systolic function. Atria Normal left atrium. Normal right atrium. Mitral Valve Normal mitral valve. Tricuspid Valve Normal tricuspid valve. Mild (1+) tricuspid valve insufficiency. Pulmonary artery systolic pressure is 25 mmHg. Aortic Valve Trisinus/trileaflet aortic valve. Pulmonic Valve Normal pulmonic valve. Great Vessels Normal aortic root. The pulmonary artery is normal size. Inferior vena cava collapse with respiration. Pericardium/Pleural No pericardial effusion. Medication 22 gauge I.V. with prn adaptor inserted into right arm. Diluted definity 1.5ml given slow IV push to enhance endocardial definition. MMode/2D Measurements & Calculations LVIDd: 4.7 cm IVSd: 0.59 cm Ao root diam: 3.4 cm LVIDs: 3.0 cm LVPWd: 0.74 cm RVDd: 3.1 cm FS: 35.0 % LAV(MOD-bp): 40.0 ml LVAd ap4: 24.2 cm2 SV(MOD-sp4): 38.8 ml LAV(MOD-bp) Indexed: 23.0 ml/m2 LVLd ap4: 7.6 cm SI(MOD-sp4): 22.3 ml/m2 LAV(MOD-sp2): 36.9 ml EDV(MOD-sp4): 61.4 ml LAV(MOD-sp4): 37.7 ml EDV(sp4-el): 65.5 ml LVAs ap4: 13.1 cm2 LVLs ap4: 6.1 cm ESV(MOD-sp4): 22.7 ml ESV(sp4-el): 24.1 ml EF(MOD-sp4): 63.1 % EF(sp4-el): 63.1 % SV(sp4-el): 41.3 ml LA A4 area: 16.5 cm2 LA dimension(2D): 3.7 cm RA A4 area: 13.5 cm2 TAPSE: 1.7 cm Time Measurements MV dec time: 0.24 sec Doppler Measurements & Calculations MV E max julián: 63.9 cm/sec Lat Peak E' Julián: 9.4 cm/sec Med Peak E' Julián: 8.1 cm/sec MV A max julián: 83.4 cm/sec E/E' lat: 6.8 E/E' med: 7.9 MV E/A: 0.77 MV V2 max: 110.7 cm/sec MV P1/2t max juilán: 86.4 cm/sec Ao V2 max: 152.1 cm/sec MV max P.9 mmHg MV P1/2t: 87.9 msec Ao max P.3 mmHg MV V2 mean: 53.4 cm/sec MV dec slope: 287.7 cm/sec2 Ao V2 mean: 100.4 cm/sec MV mean P.4 mmHg MVA(P1/2t): 2.5 cm2 Ao mean P.7 mmHg MV V2 VTI: 27.0 cm Ao V2 VTI: 35.4 cm AV (velocity ratio): 0.69 LV V1 max: 112.6 cm/sec PA V2 max: 112.0 cm/sec TR max julián: 237.5 cm/sec LV V1 max P.1 mmHg PA V2 mean: 77.6 cm/sec TR max P.6 mmHg LV V1 mean P.0 mmHg LV V1 mean: 82.0 cm/sec LV V1 VTI: 24.4 cm ECHO/Echo Complete W/ Contrast Interpretation Summary Normal LV size. The left ventricular ejection fraction is 60 %. Stage 1 diastolic dysfunction. Contrast injection was performed. Ordering Physician: Joyce White Referring Physician: Joyce White Performed By: Ata Salinas RCS
--- OUTSIDE RECORDS SUMMARY | 2025-04-08 15:27 | XMS RPT_ITS | CCD ---
Author Organization [facility] Care Team Providers Care Licensed Customs Broker Name Role Phone Viktor Shay Attending Unavailable Hoang, Shay Primary Care Unavailable Hoang, Shay Admitting Unavailable Hoang, Shay Attending Unavailable Hoang, Shay Primary Care Unavailable Hoang, Shay Attending Unavailable Hoang, Shay Primary Care Unavailable Hoang, Shay Admitting Unavailable Hoang, Shay Primary Care Unavailable Hoang, Shay Admitting Unavailable Hoang, Shay Attending Unavailable Hoang, Shay Admitting Unavailable Hoang, Shay Attending Unavailable Hoang, Shay Primary Care Unavailable Hoang, Shay Attending Unavailable Hoang, Shay Primary Care Unavailable Hoang, Shay Admitting Unavailable Hoang, Shay Attending Unavailable Hoang, Shay Primary Care Unavailable Hoang, Shay Attending Unavailable Hoang, Shay Primary Care Unavailable Hoang, Shay Admitting Unavailable Hoang, Shay Attending Unavailable Hoang, Shay Primary Care Unavailable Hoang, Shay Admitting Unavailable Hoang, Shay Attending Unavailable Hoang, Shay Primary Care Unavailable Geovani, Rani L Attending Unavailable Hoang, Shay Primary Care Unavailable Geovani, Rani L Admitting Unavailable Geovani, Rani L Attending Unavailable Hoang, Shay Primary Care Unavailable Geovani, Rani L Admitting Unavailable Matthew Patel MD Primary Care Provider [phone] Dr. Matthew Patel Primary Care Provider [phone] Dr. Matthew Patel Referring Provider Dr. Matthew Bourgeois Attending Provider MD Cristino Jb Emergency Provider Dr. Oumar Hahn Admit Provider Dr. Oumar Hahn Attending Provider Selma, Dr. Oseguera Other Provider Dr. Matthew Patel Primary Care Provider Loco, Dr. Castro Referring Provider Dr. Matthew Bourgeois Attending Provider MD Jb Gregg Emergency Provider Selma, Dr. Oseguera Admit Provider Selma, Dr. Oseguera Attending Provider Selma, Dr. Oseguera Other Provider Skye, Dr. Parada Attending Provider Dr. Oumar Hahn Referring Provider Dr. Matthew Patel Primary Care Provider Loco, Dr. Castro Referring Provider Dr. Oumar Hahn Attending Provider Selma, Dr. Oseguera Other Provider Loco, Dr. Castro Primary Care Provider Dr. Matthew Patel Referring Provider Sandip WALTERS, REJI Gaines Attending Provider Dr. Melly Barrow Attending Provider Dr. Melly Barrow Referring Provider Matthew Patel MD Primary Care Provider MARCO ANTONIO ALEJO Referring Unavailable MATTHEW PATEL Primary Care Unavailable Loco CORDERO, Dr. Castro Primary Care Provider Dr. Ines Lea MD Attending Provider Loco CORDERO, Dr. Castro Attending Provider Dr. Matthew Patel MD Referring Provider Venu CORDERO, Dr. Chacon Attending Provider Naila Mackenzie Attending Provider Unavailable Patel, Matthew Primary Care Unavailable Ines Lea Attending Unavailable Patel, Matthew Primary Care Unavailable Patel, Matthew Consulting Unavailable Melly Barrow Attending Unavailable Patel, Matthew Referring Unavailable Patel, Matthew Primary Care Unavailable Ines Lea Attending Unavailable Patel, Matthew Referring Unavailable Patel, Matthew Primary Care Unavailable Joyce Romero Attending Unavail able Joyce Romero Referring Unavail able Patel, Matthew Primary Care Unavailable Joyce Romero Attending Unavail able Joyce Romero Referring Unavail able Patel, Matthew Referring Unavailable Patel, Matthew Primary Care Unavailable Patel, Matthew Attending Unavailable Patel, Matthew Referring Unavailable Patel, Matthew Primary Care Unavailable Patel, Matthew Attending Unavailable Patel, Matthew Primary Care Unavailable Patel, Matthew Attending Unavailable Patel, Matthew Referring Unavailable Patel, Matthew Primary Care Unavailable Patel, Matthew Attending Unavailable Patel, Matthew Referring Unavailable Joyce Romero Attending Unavail able Patel, Matthew Primary Care Unavailable Patel, Matthew Referring Unavailable Patel, Matthew Primary Care Unavailable Ines Lea Attending Unavailable Patel, Matthew Referring Unavailable Allergies Allergy Classification Reported Allergen(s) Allergy Type Date of Onset Reaction(s) Facility (1 source) Amoxicillin / Clavulanate; Translations: [Augmentin ES-600] Drug Allergy [facility] Repository (17 sources) Codeine; Translations: [codeine] Drug Allergy 2 [facility] Repository (15 sources) Penicillins Propensity to adverse reactions 2 [facility] (1 source) ALLERGIES NOT ON FILE; Translations: [ALLERGIES NOT ON FILE] Propensity to adverse reactions (disorder) [facility] 2 Repository (1 source) Penicillins Drug allergy (disorder) 5 [facility] Repository Medications Current Medications Medication Drug Class(es) Dates Sig (Normalized) Sig (Original) amLODIPine 5 mg oral tablet (3 sources) Dihydropyridine Calcium Channel Danielle Start: 03-19-2024 take 1 tablet by mouth once daily Amlodipine 5 mg tablet Active 5 mg PO daily March 19, 2024 12:00am ascorbic acid 500 mg oral capsule (3 sources) Vitamin C Start: 03-19-2024 take 1 mg by mouth once daily Ascorbic Acid (Vitamin C) 500 mg capsule Active mg PO DAILY March 19, 2024 12:00am aspirin 81 mg delayed release oral tablet (15 sources) Platelet Aggregation Inhibitor, Nonsteroidal Anti-inflammatory Drug Start: 12-01-2019 Aspirin (Adult Low Dose Aspirin) 81 mg tablet,delayed release (DR/EC) Active 81 mg PO DAILY December 01, 2019 12:00am heart health biotin 2.5 mg oral capsule (15 sources) Start: 01-16-2022 take 2 capsules by mouth once daily Biotin 2,500 mcg capsule Active 5000 ug PO DAILY January 16, 2022 12:00am SUPPLEMENT Start: 01-16-2022 take 5000 ug by mouth once jolene ly Biotin Active 5000 MCG PO DAILY January 16, 2022 12:00am Start: 01-16-2022 take 5 mg by mouth once daily Biotin Active 5 MG PO DAILY January 16, 2022 12:00am cetirizine hydrochloride 10 mg oral tablet (15 sources) Histamine-1 Receptor Antagonist Start: 01-16-2022 take 1 tablet by mouth once daily as needed Cetirizine (Zyrtec) 10 mg tablet Active 10 mg PO DAILY as needed for allergies January 16, 2022 12:00am cholecalciferol 0.025 mg oral tablet (20 sources) Vitamin D Start: 01-16-2022 take 1 tablet by mouth once daily Cholecalciferol (Vitamin D3) 25 mcg (1,000 unit) tablet Active 25 ug PO DAILY January 16, 2022 12:00am Start: 04-26-2020 End: 01-16-2022 take 1 capsule by mouth once daily Cholecalciferol (Vitamin D3) 50 mcg (2,000 unit) capsule Discontinued 50 ug PO DAILY April 26, 2020 1:00am January 16, 2022 2:03pm Cranberry (6 sources) Non-Standardized Food Allergenic Extract, Non-Standardized Plant Allergenic Extract Start: 03-19-2024 take 1 capsule by mouth every other day at mealtime Cranberry 500 mg capsule Active 500 mg PO .QOD March 19, 2024 11:50am administer with meals Start: 03-19-2024 End: 03-19-2024 take 1 capsule by mouth three times daily at mealtime Cranberry 500 mg capsule Discontinued 500 mg PO THREE TIMES A DAY March 19, 2024 12:00am March 19, 2024 11:51am administer with meals 3 ml insulin glargine 100 unt/ml pen injector (20 sources) Insulin Analog Start: 01-23-2025 Insulin Glargi ne (Lantus Solostar U-100 Insulin) 100 unit/mL (3 mL) insulin pen Active 10 U SC TWICE A DAY January 23, 2025 12:00am Start: 03-19-2024 End: 01-23-2025 Insulin Glargine (Basaglar K wikpen U-100 Insulin) 100 unit/mL (3 mL) insulin pen Discontinued 35 U SC AT BEDTIME March 19, 2024 11:50am January 23, 2025 1:19pm Start: 03-20-2023 End: 03-19-2024 Insulin Glargine (Basaglar K wikpen U-100 Insulin) 100 unit/mL (3 mL) insulin pen Discontinued 40 U SC AT BEDTIME March 20, 2023 1:11pm March 19, 2024 11:51am Start: 01-16-2022 End: 03-20-2023 Insulin Glargine (Basaglar K wikpen U-100 Insulin) 100 unit/mL (3 mL) insulin pen Discontinued 20 U SC AT BEDTIME January 16, 2022 12:00am March 20, 2023 1:12pm Start: 01-16-2022 Insulin Glargi ne (Basaglar Kwikpen U-100 Insulin) 100 unit/mL (3 mL) insulin pen Active 20 UNIT SC EVERY MORNING January 16, 2022 12:00am lisinopril 20 mg oral tablet (20 sources) Angiotensin Converting Enzyme Inhibitor Start: 02-15-2022 take 1 tablet by mouth twice daily Lisinopril 20 mg tablet Active 20 mg PO TWICE A DAY 60 12 February 15, 2022 2:17pm BP Start: 04-26-2020 End: 02-15-2022 take 1 tablet by mouth once daily Lisinopril 20 mg tablet Discontinued 20 mg PO DAILY 90 3 April 11, 2021 4:22pm February 15, 2022 2:18pm BP Start: 12-01-2019 End: 04-26-2020 take 1 tablet by mouth once daily Lisinopril 10 mg tablet Discontinued 10 mg PO DAILY December 01, 2019 12:00am April 26, 2020 2:42pm BP melatonin 10 mg oral tablet (15 sources) Start: 04-26-2020 take 2 tablets by mouth at bedtime as needed for sleep Melatonin 10 mg tablet Active 20 mg PO BEDTIME as needed for Sleep April 26, 2020 1:00am Start: 04-26-2020 take 20 mg by mouth at bedtime Melatonin Active 20 MG PO BEDTIME April 26, 2020 1:00am metFORMIN hydrochloride 1000 mg oral tablet (15 sources) Biguanide Start: 12-01-2019 take 1 tablet by mouth twice daily Metformin 1,000 mg tablet Active 1000 mg PO TWICE A DAY December 01, 2019 12:00am DM 24 hr metoprolol succinate 50 mg extended release oral tablet (15 sources) beta-Adrenergic Danielle Start: 12-01-2019 take 1 tablet by mouth once daily Metoprolol Succinate 50 mg tablet extended release 24 hr Active 50 mg PO DAILY December 01, 2019 12:00am BP omeprazole 20 mg delayed release oral capsule (20 sources) Proton Pump Inhibitor Start: 12-04-2019 End: 03-20-2023 take 1 capsule by mouth once daily as needed for gastroesophageal reflux disease Omeprazole 20 mg capsule,delayed release(DR/EC) Active 20 mg PO DAILY as needed for GERD March 20, 2023 1:12pm pioglitazone 15 mg oral tablet (6 sources) Peroxisome Proliferator Receptor alpha Agonist, Peroxisome Proliferator Receptor gamma Agonist, Thiazolidinedione Start: 03-20-2023 take 1 tablet by mouth once daily Pioglitazone (Actos) 15 mg tablet Active 15 mg PO DAILY March 20, 2023 12:00am rosuvastatin calcium 5 mg oral tablet (15 sources) HMG-CoA Reductase Inhibitor Start: 12-01-2019 take 1 tablet by mouth once daily Rosuvastatin 5 mg tablet Active 5 mg PO DAILY December 01, 2019 12:00am cholesterol Semaglutide (4 sources) Start: 01-23-2025 Semaglutide (Ozempic) 0.25 mg or 0.5 mg (2 mg/3 mL) pen injector Active 0.5 mg SC EVERY WEEK January 23, 2025 12:00am Start: 03-19-2024 Semaglutide (O zempic) 0.25 mg or 0.5 mg (2 mg/3 mL) pen injector Active 0.5 mg SC EVERY WEEK March 19, 2024 12:00am Vibegron (1 source) Start: 01-23-2025 take 1 tablet by katherine th once daily Vibegron (Gemtesa) 75 mg tablet Active 75 mg PO daily January 23, 2025 12:00am Completed/Discontinued Medications Medication Drug Class(es) Dates Sig (Normalized) Sig (Original) ciprofloxacin 500 mg oral tablet (15 sources) Quinolone Antimicrobial Start: 12-11-2019 End: 04-26-2020 take 1 tablet by mouth twice daily Ciprofloxacin Hcl 500 MG tablet Discontinued 500 mg PO TWICE A DAY 10 December 11, 2019 12:00am April 26, 2020 2:15pm clopidogrel 75 mg oral tablet (15 sources) [id number] Platelet Inhibitor Start: 12-04-2019 End: 12-09-2019 take 1 tablet by mouth once daily Clopidogrel (Plavix) 75 mg tablet Discontinued 75 mg PO DAILY 30 December 04, 2019 12:00am December 09, 2019 1:05pm dapagliflozin 10 mg oral tablet (15 sources) Sodium-Glucose Cotransporter 2 Inhibitor Start: 12-01-2019 End: 01-14-2021 take 1 tablet by mouth once daily Dapagliflozin Propanediol (Farxiga) 10 mg tablet Discontinued 10 mg PO DAILY December 01, 2019 12:00am January 14, 2021 10:57am DM dicyclomine hydrochloride 20 mg oral tablet (15 sources) Anticholinergic Start: 01-16-2022 End: 03-20-2023 take 1 tablet by mouth twice daily Dicyclomine 20 mg tablet Discontinued 20 mg PO TWICE A DAY January 16, 2022 12:00am March 20, 2023 1:11pm Dulaglutide (15 sources) GLP-1 Receptor Agonist Start: 01-14-2021 End: 03-20-2023 Dulaglutide (Trulicity) 3 mg/0.5 mL pen injector Discontinued 3 mg SC EVERY WEEK January 14, 2021 12:00am March 20, 2023 1:11pm Check with primary doctor takes weekly on Wednesdays Start: 01-14-2021 End: 03-20-2023 Dulaglutide (Trulicity) 3 mg /0.5 mL pen injector Discontinued 3 MG SC EVERY WEEK January 14, 2021 12:00am March 20, 2023 1:11pm takes weekly on Wednesdays Start: 01-14-2021 End: 03-20-2023 Dulaglutide (Trulicity) 3 mg /0.5 mL pen injector Discontinued 3 MG SC EVERY WEEK January 13, 2021 11:00pm March 20, 2023 12:11pm takes weekly on Wednesdays Start: 01-14-2021 Dulaglutide (T rulicity) 3 mg/0.5 mL pen injector Active 3 MG SC EVERY WEEK January 13, 2021 11:00pm takes weekly on Wednesdays Start: 01-14-2021 Dulaglutide (T rulicity) 3 mg/0.5 mL pen injector Active 3 MG SC EVERY WEEK January 14, 2021 12:00am takes weekly on Wednesdays Start: 01-14-2021 Dulaglutide (T rulicity) 3 mg/0.5 mL pen injector Active 3 MG SC EVERY WEEK January 14, 2021 12:00am glimepiride 2 mg oral tablet (20 sources) Sulfonylurea Start: 02-04-2022 End: 03-19-2024 take 1 tablet by mouth at dinner Glimepiride 2 mg Tablet Discontinued 2 mg PO WITH DINNER February 04, 2022 12:00am March 19, 2024 11:37am DM Start: 01-16-2022 End: 03-19-2024 take 1 tablet by mouth at breakfast Glimepiride 4 mg tablet Discontinued 4 mg PO WITH BREAKFAST January 16, 2022 2:02pm March 19, 2024 11:37am DM Start: 04-26-2020 End: 01-16-2022 take 6 mg by mouth once daily Glimepiride 4 mg tablet Discontinued 6 mg PO DAILY April 26, 2020 2:14pm January 16, 2022 2:04pm DM Start: 04-26-2020 End: 01-16-2022 take 6 mg by mouth once daily Glimepiride Discontinued 6 MG PO DAILY April 26, 2020 2:14pm January 16, 2022 2:04pm Start: 12-01-2019 End: 04-26-2020 take 1 tablet by mouth once daily Glimepiride 4 mg tablet Discontinued 4 mg PO DAILY December 01, 2019 12:00am April 26, 2020 2:15pm DM Lactobacillus Combination No.9 (Adult 50 Plus Probiotic) 4 billion cell capsule (18 sources) Start: 03-19-2024 End: 03-19-2024 take 4 capsules by mouth once daily Lactobacillus Combination No.9 (Adult 50 Plus Probiotic) 4 billion cell capsule Discontinued 4000 NMA PO daily March 19, 2024 12:00am March 19, 2024 11:51am administer with a meal Start: 04-26-2020 End: 01-16-2022 take 4 capsules by mouth twice daily Lactobacillus Combination No.9 (Adult 50 Plus Probiotic) 4 billion cell capsule Discontinued 4000 NMA PO TWICE A DAY April 26, 2020 1:00am January 16, 2022 2:04pm administer with a meal Start: 04-26-2020 End: 01-16-2022 take 4 capsules by mouth twice daily Lactobacillus Combination No.9 (Adult 50 Plus Probiotic) 4 billion cell capsule Discontinued 4000 MMU CELLS PO TWICE A DAY April 26, 2020 12:00am January 16, 2022 1:04pm administer with a meal Start: 04-26-2020 End: 01-16-2022 take 4 capsules by mouth twice daily Lactobacillus Combination No.9 (Adult 50 Plus Probiotic) 4 billion cell capsule Discontinued 4000 MMU CELLS PO TWICE A DAY April 26, 2020 1:00am January 16, 2022 2:04pm administer with a meal melatonin 10 mg / vitamin b6 10 mg extended release oral tablet (15 sources) Start: 12-10-2019 End: 04-26-2020 take 1 tablet by mouth at bedtime as needed Melatonin-Pyridoxine Hcl (B6) 1 EACH tablet,ext release multiphase Discontinued 1 NMA PO AT BEDTIME as needed for Insomnia December 10, 2019 12:00am April 26, 2020 2:14pm Start: 12-10-2019 End: 04-26-2020 Melatonin-Pyridoxine Hcl (B6 ) Discontinued 1 EACH PO AT BEDTIME December 10, 2019 12:00am April 26, 2020 2:14pm Turmeric Root Extract 500 mg capsule (6 sources) Start: 03-19-2024 End: 01-23-2025 take 1 capsule by mouth every other day Turmeric Root Extract 500 mg capsule Discontinued 500 mg PO .QOD March 19, 2024 11:51am January 23, 2025 1:20pm Start: 03-19-2024 take 1 capsule by mo ut every other day Turmeric Root Extract 500 mg capsule Active 500 mg PO .QOD March 19, 2024 11:51am Start: 03-19-2024 End: 03-19-2024 take 1 capsule by mouth once daily Turmeric Root Extract 500 mg capsule Discontinued 500 mg PO daily March 19, 2024 12:00am March 19, 2024 11:51am Problems Active Problems Problem Classification Problem Date Documented Da te Episodic/Chronic Abdominal pain (19 sources) Abdominal pain; Translations: [Unspecified abdominal pain] Episodic Cardiac dysrhythmias (16 sources) Premature atrial contraction; Translations: [Atrial premature depolarization] Onset: 03-19-2025 05-07-2020 Chronic Cardiac dysrhythmias (20 sources) Palpitations; Translations: [Palpitations] Onset: 03-19-2025 Episodic Diabetes mellitus without complication (18 sources) Type 2 diabetes mellitus; Translations: [Type 2 diabetes mellitus without complications] Onset: 12-16-2024 Chronic Disorders of lipid metabolism (20 sources) Mixed hyperlipidemia; Translations: [Mixed hyperlipidemia] Chronic Essential hypertension (20 sources) Essential hypertension; Translations: [Essential (primary) hypertension] Chronic Comment on above: CONTROLLED WITH MED Gastrointestinal hemorrhage (15 sources) Hematochezia; Translations: [Melena] Episodic Genitourinary symptoms and ill-defined conditions (2 sources) Nocturia; Translations: [Nocturia] 01-23-2025 Episodic Intestinal obstruction without hernia (19 sources) Partial obstruction of small bowel; Translations: [Partial intestinal obstruction, unspecified as to cause] Episodic Menopausal disorders (2 sources) Atrophy of vagina; Translations: [Postmenopausal atrophic vaginitis] 01-23-2025 Chronic Nausea and vomiting (19 sources) Nausea; Translations: [Nausea] Episodic Nonspecific chest pain (17 sources) Chest pain; Translations: [Chest pain, unspecified] Episodic Other bone disease and musculoskeletal deformities (3 sources) Segmental and somatic dysfunction; Translations: [Segmental and somatic dysfunction of lumbar region] Onset: 07-27-2023 07-27-2023 Episodic Other bone disease and musculoskeletal deformities (1 source) Segmental and somatic dysfunction of lumbar region; Translations: [Segmental and somatic dysfunction of lumbar region] Onset: 07-27-2023 Episodic Other diseases of bladder and urethra (2 sources) Overactive bladder; Translations: [Overactive bladder] 01-23-2025 Chronic Other diseases of bladder and urethra (1 source) Overactive bladder; Translations: [Overactive bladder] Onset: 01-23-2025 Chronic Other injuries and conditions due to external causes (15 sources) Hematoma; Translations: [Other injury of unspecified body region, initial encounter] 12-15-2019 Episodic Other lower respiratory disease (6 sources) Dyspnea; Translations: [Shortness of breath] 03-20-2023 Episodic Other lower respiratory disease (4 sources) Shortness of breath; Translations: [Shortness of breath] Onset: 03-20-2025 03-20-2023 Episodic Other upper respiratory disease (1 source) Vocal cord dysfunction; Translations: [Other diseases of vocal cords] Episodic Residual codes; unclassified (15 sources) Obstructive sleep apnea syndrome; Translations: [Obstructive sleep apnea (adult) (pediatric)] 04-26-2020 Chronic Spondylosis; intervertebral disc disorders; other back problems (4 sources) Degeneration of lumbar intervertebral disc; Translations: [Other intervertebral disc degeneration, lumbar region] Onset: 07-27-2023 07-27-2023 Chronic Urinary tract infections (2 sources) Urinary tract infectious disease; Translations: [Urinary tract infection, site not specified] 01-23-2025 Episodic Past or Other Problems Problem Classification Problem Date Documented Da te Episodic/Chronic Other screening for suspected conditions (not mental disorders or infectious disease) (1 source) Encounter for screening mammogram for malignant neoplasm of breast; Translations: [Encounter for screening mammogram for malignant neoplasm of breast] Onset: 07-02-2024 Episodic Results Test Name Value Interpretation Reference Range Facility CBC W/Diff, Automatedon 02-20 Absolute Lymph 1.95 X10 3/uL Normal 0.83-4.51 [facility] Comment on above: Performed By: #### L 100.0100, L503.7505 #### [facility] [address] [facility]. [place], [place], [id number] Absolute Neut 5.0 X10 3/uL Normal 2.0-7.7 [facility] Comment on above: Performed By: #### L 100.0100, [id number] #### [facility] [address] [place], [address] Basophils/100 WBC (Bld) 0.3 % Normal 0-1 [facility] Comment on above: Performed By: #### L 100.0100, [id number] #### [facility] [address] [place], [address] Eosinophils/100 WBC (Bld) 1.6 % Normal 0-5 [facility] Comment on above: Performed By: #### L 100.0100, [id number] #### [facility] [address] [place], [address] Erythrocyte distribution width (RBC) [Ratio] 15.1 % High 11.6-14.6 [facility] Comment on above: Performed By: #### L 100.0100, [id number] #### [facility] [address] [place], [address] Hematocrit (Bld) [Volume fraction] 38.7 % Normal 37-47 [facility] Comment on above: Performed By: #### L 100.0100, [id number] #### [facility] [address] [place], [address] Hemoglobin (Bld) [Mass/Vol] 12.5 g/dL Normal 12.0-15.0 [facility] Comment on above: Performed By: #### L 100.0100, [id number] #### [facility] [address] [place], [address] IG% 0.300 Normal 0.0-0.9 [facility] Comment on above: Result Comment: IG% - Immature Granulocytes (promyelocytes, myelocytes and metamyelocytes) > 1% indicates that a LEFT SHIFT is Present. Performed By: #### L 100.0100, [id number] #### [facility] [address] [place], [address] Lymphocytes/100 WBC (Bld) 25.4 % Normal 19-41 [facility] Comment on above: Performed By: #### L 100.0100, [id number] #### [facility] [address] [place], [address] MCH (RBC) [Entitic mass] 27.5 pg Normal 27.0-32.0 [facility] Comment on above: Performed By: #### L 100.0100, [id number] #### [facility] [address] [place], [address] MCHC (RBC) [Mass/Vol] 32.3 g/dL Normal 32-36 [facility] Comment on above: Performed By: #### L 100.0100, [id number] #### [facility] [address] [place], [address] MCV (RBC) [Entitic vol] 85.2 fL Normal 81-99 [facility] Comment on above: Performed By: #### L 100.0100, [id number] #### [facility] [address] [place], [address] Monocytes/100 WBC (Bld) 7.0 % Normal 0-10 [facility] Comment on above: Performed By: #### L 100.0100, [id number] #### [facility] [address] [place], [address] Neutrophils/100 WBC (Bld) 65.4 % Normal 47-70 [facility] Comment on above: Performed By: #### L 100.0100, [id number] #### [facility] [address] [place], [address] Nucleated RBC (Bld) [#/Vol] 0 10*3/uL Normal 0-5 [facility] Comment on above: Performed By: #### L 100.0100, [id number] #### [facility] [address] [place], [address] Platelet mean volume (Bld) [Entitic vol] 11.1 fL Normal 6.2-12.0 [facility] Comment on above: Performed By: #### L 100.0100, [id number] #### [facility] [address] [place], [address] Platelets (Bld) [#/Vol] 193 10*3/uL Normal 150-450 [facility] Comment on above: Performed By: #### L 100.0100, [id number] #### [facility] [address] [place], [address] RBC (Bld) [#/Vol] 4.54 10*6/uL Normal 4.2-5.4 [facility] Comment on above: Performed By: #### L 100.0100, [id number] #### [facility] [address] [place], [address] RDW SD 46.6 fl High 35.1-43.9 [facility] Comment on above: Performed By: #### L 100.0100, L503.7505 #### [facility] [address] [place], [address] WBC (Bld) [#/Vol] 7.7 10*3/uL Normal 4.4-11.[address] [facility] Comment on above: Performed By: #### L 100.0100, L503.7505 #### [facility] [address] [place], [address] Cardiology Visit Reporton Cardiology Visit Report [facility] [address] [place] [address] OFFICE VISIT Date of Service: 03/19/25 MR#: [id number] Acct: [id number] Name: REENA SHAW #: [id number] : 1955 Provider: JIMENEZ Lowry Age/Sex: 70/F Location: [facility] Status: Signed HPI HPI History of Present Illness Details: The patient is a 70-year-old female with HTN, HLD, IBS, sleep apnea, vocal cord dysfunction, and a remote history of pulmonary emboli, presenting with worsening dyspnea and fatigue. She reports that her dyspnea, which has been present for years, has recently worsened and now occurs with minimal exertion. She continues to ride her exercise bike for 30 minutes in the morning and evening at least 5 days a week, but notes that she must go slower and often struggles to complete her usual duration. She also reports increased fatigue, which she describes as being as severe as before she started nightly CPAP therapy. She notes intermittent palpitations, which have increased in frequency compared to prior years, now occurring 2???3 times per day on 4???5 days per week. She also reports intermittent chest heaviness and tightness, but denies typical chest pain. She describes two distinct types of pain: one on the left side under her ribs, which she attributes to IBS and prior bowel blockages, and another on the right side under her armpit, which radiates to her back, shoulder, and down her arm. She reports that the right-sided pain occurs periodically. She reports that she experiences pain with every meal, regardless of the type or amount of food consumed. She is scheduled for an upper endoscopy at the recommendation of Dr. Patel due to this postprandial pain. She is currently taking amlodipine, aspirin, lisinopril BID, metoprolol 50 mg daily, and rosuvastatin. She notes that a recent stress test was negative, but her exercise tolerance has decreased compared to 5 years ago. She has a history of a cardiac catheterization in 2019, which resulted in a significant groin hematoma, but did not demonstrate any signficant CAD. She also underwent a Holter monitor several years ago, which showed PVCs. Intake Vital Signs 03/19/24 11:36 01/23/25 13:40 03/19/25 09:13 Height 5 ft 5 ft 5 ft Weight: 169 lb BMI 33.0 BP 120/83 H Blood Pressure Location Lt brachial Position Sitting Respiration 18 Pulse 70 Pulse Source Monitor Pulse Oximetry (%) 96 Oxygen Delivery Method room air Intake Visit Reasons: 1 Y FU/PREV PFM Director Of Enrollment Required: No Accompanied by: Self Is patient in pain?: No Allergies codeine Adverse Reaction (Severe, Verified 03/19/25 11:28) Nausea Penicillins Adverse Reaction (Unknown, Verified 03/19/25 11:28) Unknown Medications ???Medication ???Instructions ???Recorded ???Confirmed ???Type aspirin 81 mg tablet,delayed 81 mg PO DAILY heart health 03/19/25 History release (Adult Low Dose Aspirin) metformin 1,000 mg tablet 1,000 mg PO BID DM 12/01/19 History rosuvastatin 5 mg tablet 5 mg PO DAILY cholesterol 12/01/19 03/19/25 History melatonin 10 mg tablet 20 mg PO HS PRN Sleep 04/26/20 History biotin 2,500 mcg capsule 5,000 mcg PO DAILY SUPPLEMENT 12/2003/19/25 History cetirizine 10 mg tablet (Zyrtec) 10 mg PO DAILY PRN allergies 01/1603/19/25 History cholecalciferol (vitamin D3) 25 25 mcg PO DAILY 01/16/22 03/19/25 History mcg (1,000 unit) tablet lisinopril 20 mg tablet 20 mg PO BID BP #60 tabs 02/15/22 03/19/25 Rx pioglitazone 15 mg tablet (Actos) 15 mg PO DAILY 03/20/23 03/19/25 History amlodipine 5 mg tablet 5 mg PO QDAY 03/19/24 03/19/25 His tory ascorbic acid (vitamin C) 500 mg mg PO DAILY 03/19/24 03/19/25 Hist ory capsule cranberry 500 mg capsule 500 mg PO .QOD 03/19/24 03/19/25 H istory semaglutide 0.25 mg or 0.5 mg (2 0.5 mg subcut QWEEK 03/19/2403/19 History mg/3 mL) subcutaneous pen injector (Ozempic) estradiol 0.01% (0.1 mg/gram) 1 g vaginal 3XW 3 months #42.5 10/1203/19/25 Rx vaginal cream grams Gemtesa 75 mg tablet (vibegron) 75 mg PO QDAY #90 tabs 03/19/25 Rx calcium carbonate (Tums) 200 mg PO BID PRN 03/19/25 5 History glimepiride 2 mg tablet 2 mg PO QHS 03/19/25 03/19/25 Hist ory glimepiride 4 mg tablet 4 mg PO QAM 03/19/25 03/19/25 Hist ory insulin glargine 100 unit/mL (3 35 unit subcut QHS 03/19/25 History mL) subcutaneous pen (Lantus Solostar U-100 Insulin) metoprolol succinate 50 mg 25 mg PO DAILY BP 03/19/25 5 History tablet,extended release 24 hr omeprazole 20 mg capsule,delayed 20 mg PO DAILY GERD 03/19/2503/19 History release sucralfate 1 gram tablet 1 g PO 4X/DAY 03/19/2502/20 (more content not included)... Normal [facility] Pro- Brain NATRIURETIC PEPTI Frantz 03-19-2025 proBNP < 36 Normal <=900 [facility] Comment on above: Result Comment: Hear t Failure Unlikely: < 300 pg/mL Heart Failure Likely < 50 Years: > 450 pg/mL 50-75 Years: > 900 pg/mL >75 Years: > 1800 pg/mL Performed By: #### L 100.0100, L503.7505 #### [facility] [address] [place], [address] Stress Reporton 03-12-2025 Stress Report [facility] [address] [place] [address] MR#: [id number] Acct: [id number] Name: REENA SHAW Rep #: [id number] : 1955 70 From: Melly Barrow MD Primary Care: Dr. Matthew Patel MD Status: REG CLI Referring Dr: Matthew Patel MD Sex: F C Stress Test Report Date: 03/12/2025 Procedure: Exercise tolerance test Indications: Dyspnea on exertion Consent: Per the patient Procedure: The patient exercised on a Jose Elias protocol for 4 minutes and 40 seconds achieving a peak heart rate of 151 bpm (99% predicted maximal heart rate) with a peak blood pressure 200/82 mmHg and a peak MET capacity of approximately 7.0 MET's. The baseline ECG demonstrated sinus rhythm. The peak exercise ECG showed sinus tachycardia with no ischemic changes. There were no cardiac dysrhythmias pretest, during exercise, or recovery. Hypertensive blood pressure response to exercise. The functional capacity was considered suboptimal. The patient had no complaints of chest discomfort during exercise or recovery. The examination was discontinued secondary to target heart rate being achieved and dyspnea. Impression: 1. Technically adequate (percent predicted maximal heart rate greater than 85%) exercise tolerance test 2. Peak exercise ECG with no ischemic changes. 3. There were no cardiac dysrhythmias during exercise or recovery 4. Hypertensive blood pressure response to exercise. No chest pain reported. Dyspnea reported with exercise. This note was generated with treadalong dictation software. It may contain incorrect words, spelling, and punctuation that were not noted in checking the note before signing. 03/12/25 1141 Date Melly Barrow MD CC: Dr. Matthew Patel MD Date Dictated: 03/12/25 113 Date Transcribed: 03/12/251138 Technical Adjuster: ARGENTINA Thakur [facility] MR/BMS.Saroj 01-23-2025 MR/BMS.JADYN [facility] [address], [address] [place] [address] OFFICE VISIT Date of Service: 01/23/25 MR#: [id number] Acct: [id number] Name: REEAN SHAW Rep #: [id number] : 1955 Provider: Dr. Ines Guzman i, MD Age/Sex: 69/F Location: [facility] Status: Signed Intake Vital Signs 03/19/24 11:36 01/23/25 13:22 Height 5 ft 5 ft Weight: 165 lb 8 oz BMI 32.3 BP 144/76 H Pulse 81 Intake Visit Reasons: 12m UTI and med f/u Chief Complaint: vaginal itching, burning and discharge Director Of Enrollment Required: No Accompanied by: Self Is patient in pain?: No Allergies codeine Adverse Reaction (Severe, Verified 01/23/25 13:18) Nausea Penicillins Adverse Reaction (Unknown, Verified 01/23/25 13:18) Unknown Medications ???Medication ???Instructions ???Recorded ???Confirmed ???Type aspirin 81 mg tablet,delayed 81 mg PO DAILY heart health 01/23/25 History release (Adult Low Dose Aspirin) metformin 1,000 mg tablet 1,000 mg PO BID DM 12/01/19 History metoprolol succinate 50 mg 50 mg PO DAILY BP 12/01/19 5 History tablet,extended release 24 hr rosuvastatin 5 mg tablet 5 mg PO DAILY cholesterol 12/01/19 01/23/25 History melatonin 10 mg tablet 20 mg PO HS PRN Sleep 04/26/2010/12 History biotin 2,500 mcg capsule 5,000 mcg PO DAILY SUPPLEMENT 12/2001/23/25 History cetirizine 10 mg tablet (Zyrtec) 10 mg PO DAILY PRN allergies 01/1601/23/25 History cholecalciferol (vitamin D3) 25 25 mcg PO DAILY 01/16/22 01/23/25 History mcg (1,000 unit) tablet lisinopril 20 mg tablet 20 mg PO BID BP #60 tabs 02/15/22 01/23/25 Rx omeprazole 20 mg capsule,delayed 20 mg PO DAILY PRN GERD 03/20/23 0 01/23/25 History release pioglitazone 15 mg tablet (Actos) 15 mg PO DAILY 03/20/23 01/23/25 History amlodipine 5 mg tablet 5 mg PO QDAY 03/19/24 01/23/25 His tory ascorbic acid (vitamin C) 500 mg mg PO DAILY 03/19/24 01/23/25 Hist ory capsule cranberry 500 mg capsule 500 mg PO .QOD 03/19/24 01/23/25 H istory semaglutide 0.25 mg or 0.5 mg (2 0.5 mg subcut QWEEK 03/19/2401/23 History mg/3 mL) subcutaneous pen injector (Drimmi) estradiol 0.01% (0.1 mg/gram) 1 g vaginal 3XW 3 months #42.5 10/1201/23/25 Rx vaginal cream grams insulin glargine 100 unit/mL (3 10 unit subcut BID 01/23/25 History mL) subcutaneous pen (Lantus Solostar U-100 Insulin) semaglutide 0.25 mg or 0.5 mg (2 0.5 mg subcut QWEEK 01/23/2501/23 History mg/3 mL) subcutaneous pen injector (Ozempic) vibegron 75 mg tablet (Gemtesa) 75 mg PO QDAY 01/23/25 01/23/25 Hi story Have you fallen in the past year?: No Nurse's Note: intermittent itching and burning vaginally with discharge, Last UA was clear per patient. Last A1c 5.8% Bladder scan PVR 27cc PFSH Medical History Urinary tract infection Vaginal atrophy Nocturia Wears glasses Post-menopausal Insulin dependent diabetes mellitus Arthritis Anemia Easy bruising Back pain Migraine headache Syncope Difficulty swallowing Dietary restriction Gastric reflux CPAP (continuous positive airway pressure) dependence Non-smoker Shortness of breath on exertion Leg cramps History of edema History of echocardiogram History of stress test Cardiology follow-up encounter History of irregular heartbeat Vocal cord dysfunction Hypertension Premature atrial contraction REGINA on CPAP Pulmonary embolism Fibromyalgia IBS (irritable bowel syndrome) Mixed hyperlipidemia Type 2 diabetes mellitus Essential hypertension Surgical History History of bilateral cataract extraction Hx of colonoscopy History of hysteroscopy History of carpal tunnel surgery of right wrist History of left heart catheterization (LHC) ( 12/09/19) History of bladder surgery History of cholecystectomy History of carpal tunnel surgery Family History Mother Myocardial infarction Brother Diabetes Uncle Myocardial infarction Uncle Myocardial infarction Social History Smoking Status: Never smoker alcohol intake: never substance use type: does not use caffeine: Yes Type: coffee Number of servings: 1 and tea HPI HPI Urology Chief Complaint: vaginal itching, burning and discharge Details: REENA SHAW, is a 69 F. She is not having issues with her vagina today, but is noticing intermittent itching and burning. She has been fearful of using vaginal estrogen in the past secondary to a long ago history of pulmonary embolism that was linked to control use. We discussed karen (more content not included)... Normal [facility] Office Visit Reporton 2024 Office Visit Report [facility] [address] [place] [address] OFFICE VISIT Date of Service: 01/13/25 MR#: [id number] Acct: [id number] Patient: REENA SHAW Rep #: [id number] : 1955 Provider: Dr. Ines Guzman i, MD Age/Sex: 69/F Location: [facility] Status: Signed Intake Vital Signs 03/19/24 11:36 Height 5 ft Intake Visit Reasons: uti Chief Complaint: f/u from SBO, discuss scope Allergies codeine Adverse Reaction (Severe, Verified 01/23/25 13:18) Nausea Penicillins Adverse Reaction (Unknown, Verified 01/23/25 13:18) Unknown Have you fallen in the past year?: No Nursing Note Patient here today for urine specimen. No UA was done, patient on AZO, C S was completed. Awaiting results. Clinical Quality Measures Falls Risk Screening/Assistive Devices Have you fallen in the past year?: No 01/29/25 1257 Date Ines Lea MD Cosigner Signature: Date (if applicable) CC: Normal [facility] Office Visit Report [facility] [address] [place] [address] OFFICE VISIT Date of Service: MR#: [id number] Acct: [id number] Patient: REENA SHAW Rep #: [id number] : 1955 Provider: Naila Mackenzie Age/Sex: 69/F Location: [facility] Status: Signed Intake Vital Signs 03/19/24 11:36 Height 5 ft Intake Visit Reasons: Amb Documentation Chief Complaint: f/u from SBO, discuss scope Allergies codeine Adverse Reaction (Severe, Verified 01/23/25 13:18) Nausea Penicillins Adverse Reaction (Unknown, Verified 01/23/25 13:18) Unknown Have you fallen in the past year?: No Nursing Note Patient was here today for urine specimen, UA was not done due to her being on AZO, C S was completed Clinical Quality Measures Falls Risk Screening/Assistive Devices Have you fallen in the past year?: No 03/10/252230 Date Ines Virkignronna Signature: Date (if applicable) CC: Naila Mackenzie Normal [facility] Anion gap in Serum or Plasma Ordered By: Matthew Patel on 12-09-2024 Anion gap [Moles/Vol] 14 mmol/L 10-02 [facility] BUN/creatinine ratioOrdered By: Matthew Patel on 12-09-2024 Urea nitrogen/Creatinine [Mass ratio] 29.1 mg/mg High 03-09 [facility] Bilirubin, totalOrdered By: Matthew Patel on 12-09-2024 Bilirubin [Mass/Vol] 0.46 mg/dL 0.00-1.30 [facility] Calculated very low density lipoprotein (VLDL) cholesterol measurementOrdered By: Matthew Patel on 12-09-2024 Calculated very low density lipoprotein (VLDL) cholesterol measurement 75 mg/dL High [facility] Carbon dioxide, total [Moles /volume] in Central venous bloodOrdered By: Matthew Patel on 12-09-2024 CO2 [Moles/Vol] 22.6 mmol/L 21.0-32.0 [facility] Chloride assayOrdered By: Jimenez Patel on 12-09-2024 Chloride [Moles/Vol] 106 mmol/L 98-108 [facility] Comprehensive Metabolic Prof ilon 12-09-2024 Albumin [Mass/Vol] 3.9 g/dL Normal 3.4-4.[address] [facility] Comment on above: Performed By: #### L 500.4050, L500.4100, L502.0250 ####[facility] [address] [place], [address] Albumin/Globulin [Mass ratio] 1.5 {ratio} Normal 0.9-2.4 [facility] Comment on above: Performed By: #### L 500.4050, L500.4100, L502.0250 ####[facility] [address] [place], [address] ALK PHOS 64 U/L Normal 35-104 [facility] Comment on above: Performed By: #### L 500.4050, L500.4100, L502.0250 ####[facility] [address] [place], [address] ALT [Catalytic activity/Vol] 33 U/L Normal <=34 [facility] Comment on above: Performed By: #### L 500.4050, L500.4100, L502.0250 ####[facility] [address] [place], [address] AST [Catalytic activity/Vol] 31 U/L Normal <=31 [facility] Comment on above: Performed By: #### L 500.4050, L500.4100, L502.0250 ####[facility] [address] [place], [address] Bilirubin [Mass/Vol] 0.46 mg/dL Normal 0.00-1.30 [facility] Comment on above: Performed By: #### L 500.4050, L500.4100, L502.0250 ####[facility] [address] [place], [address] BUN/CRE 29.1 RATIO High 10-20 [facility] Comment on above: Performed By: #### L 500.4050, L500.4100, L502.0250 ####[facility] [address] [place], [address] Calcium [Mass/Vol] 8.8 mg/dL Normal 7.6-11.[address] [facility] Comment on above: Performed By: #### L 500.4050, L500.4100, L502.0250 ####[facility] [address] [place], [address] Chloride [Moles/Vol] 106 mmol/L Normal 98-108 [facility] Comment on above: Performed By: #### L 500.4050, L500.4100, L502.0250 ####[facility] [address] [place], [address] CO2 [Moles/Vol] 22.6 mmol/L Normal 21.0-32.0 [facility] Comment on above: Performed By: #### L 500.4050, L500.4100, L502.0250 ####[facility] [address] [place], [address] Creatinine [Mass/Vol] 0.47 mg/dL Low 0.70-1.20 [facility] Comment on above: Performed By: #### L 500.4050, L500.4100, L502.0250 ####[facility] [address] [place], [address] GAP 14 Normal 5-15 [facility] Comment on above: Performed By: #### L 500.4050, L500.4100, L502.0250 ####[facility] [address] [place], [address] GFR/1.73 sq M.predicted among non-blacks MDRD (S/P/Bld) [Vol rate/Area] 104 mL/min/{1.73_m2} Normal >60 [facility] Comment on above: Result Comment: mL/m in/1.73m2 CKD-EPI Creatinine Equation (2020) Performed By: #### L 500.4050, L500.4100, L502.0250 ####[facility] [address] [place], [address] Globulin (S) [Mass/Vol] 2.6 g/dL Normal 2.2-4.2 [facility] Comment on above: Performed By: #### L 500.4050, L500.4100, L502.0250 ####[facility] [address] [place], [address] Glucose [Mass/Vol] 117 mg/dL High 70-[address] [facility] Comment on above: Performed By: #### L 500.4050, L500.4100, L502.0250 ####[facility] [address] [place], [address] Potassium [Moles/Vol] 3.7 mmol/L Normal 3.3-5.1 [facility] Comment on above: Performed By: #### L 500.4050, L500.4100, L502.0250 ####[facility] [address] [place], [address] Sodium [Moles/Vol] 143 mmol/L Normal 133-[address] [facility] Comment on above: Performed By: #### L 500.4050, L500.4100, L502.0250 ####[facility] [address] [place], [address] T PROT 6.5 g/dL Normal 5.9-8.4 [facility] Comment on above: Performed By: #### L 500.4050, L500.4100, L502.0250 ####[facility] [address], [address] Urea nitrogen [Mass/Vol] 14 mg/dL Normal 4-19 [facility] Comment on above: Performed By: #### L 500.4050, L500.4100, L502.0250 ####[facility] [address] [place], [address] Glomerular filtration rate ( GFR) estimation/1.73 sq m using serum, plasma, or whole bOrdered By: Matthew Patel on 12-09-2024 GFR/1.73 sq M.predicted among non-blacks MDRD (S/P/Bld) [Vol rate/Area] 104 mL/min/{1.73_m2} >60 [facility] Comment on above: mL/min/1.73m2 CKD-EP I Creatinine Equation (2020) LDL calc ser/plasOrdered By: Matthew Patel on 12-09-2024 Cholesterol in LDL [Mass/Vol] 99 mg/dL [facility] Comment on above: Tpnvqmwsoo=793-143 m g/dL & Higher Awdh=254 mg/dL or greater Laboratory - Chemistry and C hemistry - challengeOrdered By: Matthew Patel on 12-09-2024 AST [Catalytic activity/Vol] 31 U/L <32 [facility] Lipid Profileon 12-09-2024 CHOL:HDL 4.67 Normal [facility] Comment on above: Performed By: #### L 500.4050, L500.4100, L502.0250 ####[facility] [address], [address] Cholesterol [Mass/Vol] 222 mg/dL High <=200 [facility] Comment on above: Result Comment: Chol esterol level, Desirable <200 mg/dL Borderline high cholesterol 200-239 mg/dL High cholesterol >=240 mg/dL Recommendations of the NCEP Adult Treatment Panel for the following risk-cutoff thresholds for the [place] population. Performed By: #### L 500.4050, L500.4100, L502.0250 ####[place] [facility] [address] [place], [address] Cholesterol in HDL [Mass/Vol] 48 mg/dL Normal [facility] Comment on above: Result Comment: Gretchen ondebbie Cholesterol Education Program (NCEP) guidelines: <40 mg/dL: Low HDL-cholesterol (major risk factor for CHD) >= 60 mg/dL: High HDL-cholesterol (negative risk factor for CHD) HDL-cholesterol is affected by a number of factors, e.g. smoking, exercise, hormones, sex and age. Performed By: #### L 500.4050, L500.4100, L502.0250 ####[facility] [address] [place], [address] Cholesterol in LDL [Mass/Vol] 99 mg/dL Normal [facility] Comment on above: Result Comment: Bord qnvnec=358-579 mg/dL Higher Phrd=561 mg/dL or greater Performed By: #### L 500.4050, L500.4100, L502.0250 ####[facility] [address] [place], [address] Cholesterol in VLDL [Mass/Vol] 75 mg/dL High 5-40 [facility] Comment on above: Performed By: #### L 500.4050, L500.4100, L502.0250 ####[facility] [address] [place], [address] Triglyceride [Mass/Vol] 377 mg/dL High [facility] Comment on above: Result Comment: The drugs N-Acetylcysteine and Metamizole may falsely depress this assay. Normal range: <150 mg/dL Borderline High: 150-199 mg/dL High: 200-499 mg/dL Very High: >500 mg/dL Performed By: #### L 500.4050, L500.4100, L502.0250 ####[facility] [address] [place], [address] Microalb:Creat Ratio,Random URon 12-09-2024 Creatinine [Mass/Vol] 159.00 mg/dL Normal 28.00-217.00 [facility] Comment on above: Performed By: #### L 500.4050, L500.4100, L502.0250 ####[facility] [address] [place], [address] MALB:CREAT 24.3 mg/g CRE Normal <30 mg/g CRE [facility] Comment on above: Performed By: #### L 500.4050, L500.4100, L502.0250 ####[facility] [address] [place], [address] MICROALBUMIN,UR 38.7 mg/L Normal <20 mg/L [facility] Comment on above: Performed By: #### L 500.4050, L500.4100, L502.0250 ####[facility] [address] [place], [address] Potassium measurement (mass/ volume)Ordered By: Matthew Patel on 12-09-2024 Potassium (Unsp spec) [Mass/Vol] 3.7 mmol/L 3.3-5.1 [facility] Random urine creatinine na urement (mass/volume)Ordered By: Matthew Patel on 12-09-2024 Creatinine Unsp time (U) [Mass/Vol] 159.00 mg/dL 28.00-217.00 [facility] Screening total cholesterol/ high density lipoprotein (HDL) cholesterol ratioOrdered By: Matthew Patel on 12-09-2024 Cholesterol.total/Choles terol in HDL [Mass ratio] 4.67 {ratio} [facility] Serum creatinine measurement (mass/volume)Ordered By: Matthew Patel on 12-09-2024 Creatinine [Mass/Vol] 0.47 mg/dL Low 0.70-1.20 [facility] Serum globulin measurementOr dered By: Matthew Patel on 12-09-2024 Globulin (S) [Mass/Vol] 2.6 g/dL 2.2-4.2 [facility] Serum glucose measurement (m ass/volume)Ordered By: Matthew Patel on 12-09-2024 Glucose [Mass/Vol] 117 mg/dL High 70-[address] [facility] Serum or plasma alanine dale otransferase (ALT) measurementOrdered By: Matthew Patel on 12-09-2024 ALT [Catalytic activity/Vol] 33 U/L <35 [facility] Serum or plasma albumin na urement (mass/volume)Ordered By: Matthew Patel on 12-09-2024 Albumin [Mass/Vol] 3.9 g/dL 3.4-4.[address] [facility] Serum or plasma albumin/glob ulin mass ratioOrdered By: Matthew Patel on 12-09-2024 Albumin/Globulin [Mass ratio] 1.5 {ratio} 0.9-2.4 [facility] Serum or plasma alkaline feliberto sphatase measurementOrdered By: Matthew Patel on 12-09-2024 ALP [Catalytic activity/Vol] 64 U/L 35-104 [facility] Serum or plasma calcium na urement (mass/volume)Ordered By: Matthew Patel on 12-09-2024 Calcium [Mass/Vol] 8.8 mg/dL 7.6-11.[address] [facility] Serum or plasma cholesterol in HDL measurement (mass/volume)Ordered By: Matthew Patel on 12-09-2024 Cholesterol in HDL [Mass/Vol] 48 mg/dL >40 [facility] Comment on above: National Cholesterol Education Program (NCEP) guidelines:<40 mg/dL: Low HDL-cholesterol (major risk factor for CHD)>= 60 mg/dL: High HDL-cholesterol (negative risk factor for CHD)HDL-cholesterol is affected by a number of factors, e.g. smoking, exercise, hormones, sex and age. Serum or plasma cholesterol measurement (mass/volume)Ordered By: Matthew Patel on 12-09-2024 Cholesterol [Mass/Vol] 222 mg/dL High <201 [facility] Comment on above: Cholesterol level, D esirable <200 mg/dLBorderline high cholesterol 200-239 mg/dLHigh cholesterol >=240 mg/dLRecommendations of the NCEP Adult Treatment Panel for the following risk-cutoff thresholds for the [place] population. Serum or plasma urea nitroge n measurement (mass/volume)Ordered By: Matthew Patel on 12-09-2024 Urea nitrogen [Mass/Vol] 14 mg/dL 4-19 [facility] Sodium levelOrdered By: Matthew Patel on 12-09-2024 Sodium [Moles/Vol] 143 mmol/L 133-[address] [facility] Total proteinOrdered By: Vanessa Patel on 12-09-2024 Protein [Mass/Vol] 6.5 g/dL 5.9-8.[address] [facility] Triglycerides measurementOrd ered By: Matthew Patel on 12-09-2024 Triglyceride [Mass/Vol] 377 mg/dL High <199 [facility] Comment on above: The drugs N-Acetylcy steine and Metamizole may falsely depress this assay. Normal range: <150 mg/dLBorderline High: 150-199 mg/dLHigh: 200-499 mg/dLVery High: >500 mg/dL Urine albumin measurement wi detection limit of 20 mg/L or less (mass/volume)Ordered By: Matthew Patel on 12-09-2024 Albumin DL <= 20 mg/L (U) [Mass/Vol] 38.7 mg/L <20 mg/L [facility] SCREENING MAMM (CAD), BILATo n 06-12-2024 SCREENING MAMM (CAD), [facility] Imaging Services [address] [place], [place] [address] SCREENING MAMM (CAD), BIL MR#: [id number] Acct: [id number] Name: REENA SHAW Rep #: [id number] : 1955 F 69 From: Ian hatch MD PCP: Dr. Matthew Patel MD Status: [facility] Study: SCREENING MAMM (CAD), BILAT Date of Exam: 05/22 08/12 Exam# [id number] Ordering Dr: Matthew Patel MD -[id number] MAMMOGRAPHY - BILATERAL SCREENING REASON FOR EXAM: Female, 69 years old. Routine annual screening examination. PERTINENT HISTORY: Aunt with breast cancer. TECHNIQUE: Digital bilateral breast abdulaziz (3D mammographic acquisition) in the CC and MLO projections. 2-D mediolateral oblique (MLO) and craniocaudad (CC) views of both breasts were obtained. CAD: Full Field Digital Mammography with Computer Added Detection was performed. COMPARISON: Comparison is made with prior study dated February 23, 2023 and July 19, 2020. FINDINGS: Breast Composition: There are scattered areas of fibroglandular density. There are no dominant masses or suspicious calcifications. Stable bilateral fat-containing axillary lymph nodes. No other significant abnormalities are identified. There has been no significant change since the prior study. BI/SCREENING MAMM (CAD), BILAT IMPRESSION: Stable bilateral screening mammogram. Yearly follow-up mammogram recommended. (A) ASSESSMENT CATEGORY: BIRADS Category 2: Benign. A letter regarding these results will be sent to the patient by the facility within 30 days. Approximately 10% of breast cancers are not detected by mammography. A normal mammogram should not delay biopsy of a clinically suspicious abnormality. [id number] Electronically Signed: Ian Moore MD at 13:55 EST Reading Location ID and State: [address] [place] [address] , Service support , CC: Dr. Matthew Patel MD Technical Adjuster: Signed Normal [facility] Basic Metabolic Profile (BMP )on 06-06-2024 BUN/CRE 37.4 RATIO High 10-20 [facility] Comment on above: Performed By: #### L 501.0900, L500.4100, L501.9985, L500.2500 #### [facility] Laboratory [address] [place], [place], [id number] [place],Total 8.9 mg/dL Normal 8.5-10.1 [facility] Comment on above: Performed By: #### L 501.0900, L500.4100, L501.9985, L500.2500 #### [facility] [address] [place], [address] Chloride [Moles/Vol] 109 mmol/L High 98-107 [facility] Comment on above: Performed By: #### L 501.0900, L500.4100, L501.9985, L500.2500 #### [facility] [address] [place], [address] CO2 [Moles/Vol] 25.0 mmol/L Normal 21.0-32.0 [facility] Comment on above: Performed By: #### L 501.0900, L500.4100, L501.9985, L500.2500 #### [facility] [address] [place], [address] Creatinine [Mass/Vol] 0.46 mg/dL Low 0.55-1.02 [facility] Comment on above: Result Comment: The validity of the calculated GFR GFRAA in patients over 70 years has not been determined. Clinical correlation is essential. Performed By: #### L 501.0900, L500.4100, L501.9985, L500.2500 #### [facility] [address] [place], [address] EST GFR - AA 176 mL/min Normal >60 [facility] Comment on above: Result Comment: Afri can Australian GFR Calc Performed By: #### L 501.0900, L500.4100, L501.9985, L500.2500 #### [facility] [address] [place], [address] GAP 8 Normal 5-15 [facility] Comment on above: Performed By: #### L 501.0900, L500.4100, L501.9985, L500.2500 #### [facility] [address] [place], [address] GFR/1.73 sq M.predicted among non-blacks MDRD (S/P/Bld) [Vol rate/Area] 146 mL/min/{1.73_m2} Normal >60 [facility] Comment on above: Result Comment: Non- GFR Calc Performed By: #### L 501.0900, L500.4100, L501.9985, L500.2500 #### [facility] [address] [place], [address] Glucose [Mass/Vol] 109 mg/dL High 74-[address] [facility] Comment on above: Result Comment: Fast ing Glucose result from 100 to 125 mg/dL suggests IMPAIRED HOMEOSTASIS per A.D.A. criteria. Performed By: #### L 501.0900, L500.4100, L501.9985, L500.2500 #### [facility] [address] [place], [address] Potassium [Moles/Vol] 3.8 mmol/L Normal 3.5-5.1 [facility] Comment on above: Performed By: #### L 501.0900, L500.4100, L501.9985, L500.2500 #### [facility] [address] [place], [address] Sodium [Moles/Vol] 142 mmol/L Normal 136-[address] [facility] Comment on above: Performed By: #### L 501.0900, L500.4100, L501.9985, L500.2500 #### [facility] [address] [place], [address] Urea nitrogen [Mass/Vol] 17 mg/dL Normal 7-18 [facility] Comment on above: Performed By: #### L 501.0900, L500.4100, L501.9985, L500.2500 #### [facility] [address] [place], [address] Hemoglobin A1con 06-06-2024 HbA1c (Bld) [Mass fraction] 6.4 % High 3.8-5.6 [facility] Comment on above: Result Comment: Norm al < 5.7 % Prediabetic 5.7 - 6.4 % Diabetic >or= 6.5 % Please note range changes. Performed By: #### L 501.0900, L500.4100, L501.9985, L500.2500 #### [facility] [address] [place], [address] Lipid Profileon 06-06-2024 Cholesterol [Mass/Vol] 154 mg/dL Normal 200 [facility] Comment on above: Result Comment: <200 mg/dL Desirable 200-240 mg/dL Borderline >240 mg/dL High Risk Performed By: #### L 501.0900, L500.4100, L501.9985, L500.2500 #### [facility] [address] [place], [address] Cholesterol in HDL [Mass/Vol] 67 mg/dL Normal [facility] Comment on above: Result Comment: The drugs N-Acetylcysteine and Metamizole may falsely depress this assay. Reference Range HDL <40 mg/dL Low HDL Cholesterol HDL >or= 60 mg/dL High HDL Cholesterol Performed By: #### L 501.0900, L500.4100, L501.9985, L500.2500 #### [facility] [address] [place], [address] Cholesterol in LDL [Mass/Vol] 57 mg/dL Normal 0-130 [facility] Comment on above: Performed By: #### L 501.0900, L500.4100, L501.9985, L500.2500 #### [facility] [address] [place], [address] Cholesterol in VLDL [Mass/Vol] 30 mg/dL Normal 5-40 [facility] Comment on above: Performed By: #### L 501.0900, L500.4100, L501.9985, L500.2500 #### [facility] [address] [place], [address] Triglyceride [Mass/Vol] 151 mg/dL Normal [facility] Comment on above: Result Comment: The drugs N-Acetylcysteine and Metamizole may falsely depress this assay. Serum Triglycerides Reference Interval Normal <150 mg/dL Borderline high 150 - 199 mg/dL High 200 - 499 mg/dL Very High > or = 500 mg/dL Performed By: #### L 501.0900, L500.4100, L501.9985, L500.2500 #### [facility] [address] [place], [address] Protein+Creatinine Ratio,Uri neon 06-06-2024 PROT:CRE RATIO 217 mg/g CRE High 0-200 [facility] Comment on above: Performed By: #### L 501.0900, L500.4100, L501.9985, L500.2500 #### [facility] [address] [place], [address] Protein (U) [Mass/Vol] 31.9 mg/dL High <11.9 [facility] Comment on above: Performed By: #### L 501.0900, L500.4100, L501.9985, L500.2500 #### [facility] [address] [place], [address] UR CREAT 147.00 mg/dL Normal NO RANGE EST. [facility] Comment on above: Performed By: #### L 501.0900, L500.4100, L501.9985, L500.2500 #### [facility] [address] [place], [address] Basophil percentageOrdered B y: Matthew Patel on 08-28-2023 Bilirubin [Mass/Vol] 0.70 mg/dL 0.20-1.00 [facility] Comment on above: For patients on eltr ombopag therapy, use of Dimension Collins TBIL is not recommended. Chloride [Moles/Vol] 107 mmol/L 98-107 [facility] Cholesterol [Mass/Vol] 148 mg/dL <200 [facility] Comment on above: <200 mg/dL Desirable 200-240 mg/dL Borderline >240 mg/dL High Risk Glucose [Mass/Vol] 121 mg/dL 74-[address] [facility] Comment on above: Fasting Glucose resu lt from 100 to 125 mg/dL suggests IMPAIRED HOMEOSTASIS per A.D.A. criteria. Potassium [Moles/Vol] 3.8 mmol/L 3.5-5.1 [facility] Protein [Mass/Vol] 7.1 g/dL 6.4-8.[address] [facility] Sodium [Moles/Vol] 139 mmol/L 136-[address] [facility] Triglyceride [Mass/Vol] 148 mg/dL <199 [facility] Comment on above: The drugs N-Acetylcy steine and Metamizole may falsely depress this assay.Serum Triglycerides Reference Interval Normal <150 mg/dL Borderline high 150 - 199 mg/dL High 200 - 499 mg/dL Very High > or = 500 mg/dL Laboratory - Chemistry and C hemistry - challengeOrdered By: Matthew Patel on 08-28-2023 Albumin/Globulin [Mass ratio] 1.1 {ratio} 0.9-2.4 [facility] ALP [Catalytic activity/Vol] 55 U/L 45-117 [facility] ALT [Catalytic activity/Vol] 34 U/L 13-56 [facility] Cholesterol in HDL [Mass/Vol] 68 mg/dL >40 [facility] Comment on above: The drugs N-Acetylcy steine and Metamizole may falsely depress this assay. Reference Range HDL <40 mg/dL Low HDL Cholesterol HDL >or= 60 mg/dL High HDL Cholesterol Cholesterol in LDL [Mass/Vol] 50 mg/dL 0-130 [facility] CO2 [Moles/Vol] 25.0 mmol/L 21.0-32.0 [facility] Globulin (S) [Mass/Vol] 3.4 g/dL 2.2-4.2 [facility] Urea nitrogen/Creatinine [Mass ratio] 24.0 mg/mg 10-20 [facility] No Panel InformationOrdered By: Matthew Patel on 08-28-2023 Estimated GFR (MDRD) Amer 122 mL/min >60 [facility] Comment on above: GFR Calc Estimated GFR (MDRD) Non-Af Amer 101 mL/min >60 [facility] Comment on above: Non- GFR Calc VLDL Cholesterol 30 mg/dL 5-40 [facility] Serum or plasma calcium na urement (mass/volume)Ordered By: Matthew Patel on 08-28-2023 Calcium [Mass/Vol] 9.0 mg/dL 8.5-10.[address] [facility] Serum or plasma creatinine m easurement (mass/volume)Ordered By: Matthew Patel on 08-28-2023 Creatinine [Mass/Vol] 0.63 mg/dL 0.55-1.02 [facility] Comment on above: The validity of the calculated GFR & GFRAA in patients over 70 years has not been determined. Clinical correlation is essential. Serum or plasma urea nitroge n measurement (mass/volume)Ordered By: Matthew Patel on 08-28-2023 Urea nitrogen [Mass/Vol] 15 mg/dL 7-18 [facility] Thin prep Papanicolaou smear with manual screeningOrdered By: Matthew Patel on 08-28-2023 Thin prep Papanicolaou smear with manual screening 3.7 g/dL 3.2-5.0 [facility] Thin prep Papanicolaou smear with manual screening 28 U/L 15-37 [facility] Thin prep Papanicolaou smear with manual screening 7 5-15 [facility] XR Lumbar spine 4 Viewson 1. Mild facet joint arthropathy from L3-4 to L5-S1. Mild L5-S1 spondylosis. 2. Grade 1 L4-5 anterolisthesis MACRO: None. Signed by: Anny Trejo 07/28/2023 10:30 AM Dictation workstation: [id number] [facility] Interpreted By: Anny Trejo, STUDY: Lumbar Spine, 5 views. 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 COMPARISON: 06/07/2016. ACCESSION NUMBER(S): [id number] ORDERING CLINICIAN: MARCO ANTONIO ALEJO FINDINGS: Grade 1 L4-5 anterolisthesis. Mild facet joint arthropathy noted from L3-4 to L5-S1. Mild L5-S1 spondylosis with mild disc height loss. No spondylolysis on the oblique views. Vertebral body heights are preserved. Posterior elements are intact. [facility] Anny Trejo MD - 07/28/2023 Interpreted By: Anny Trejo, STUDY: Lumbar Spine, 5 views. 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 COMPARISON: 06/07/2016. ACCESSION NUMBER(S): [id number] ORDERING CLINICIAN: MARCO ANTONIO ALEJO FINDINGS: Grade 1 L4-5 anterolisthesis. Mild facet joint arthropathy noted from L3-4 to L5-S1. Mild L5-S1 spondylosis with mild disc height loss. No spondylolysis on the oblique views. Vertebral body heights are preserved. Posterior elements are intact. IMPRESSION: 1. Mild facet joint arthropathy from L3-4 to L5-S1. Mild L5-S1 spondylosis. 2. Grade 1 L4-5 anterolisthesis MACRO: None. Signed by: Anny Trejo 07/28/2023 10:30 AM Dictation workstation: [id number] [facility] Work Phone: XR Lumbar spine 4 ViewsOrder ed By: Anny Trejo on 07-28-2023 [facility] Work Phone: XR LUMBAR SPINE COMPLETE 4+ VIEWSon 07-27-2023 XR LUMBAR SPINE COMPLETE 4+ VIEWS Interpreted By: Anny Trejo, STUDY: Lumbar Spine, 5 views. 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 COMPARISON: 06/07/2016. ACCESSION NUMBER(S): [id number] ORDERING CLINICIAN: MARCO ANTONIO ALEJO FINDINGS: Grade 1 L4-5 anterolisthesis. Mild facet joint arthropathy noted from L3-4 to L5-S1. Mild L5-S1 spondylosis with mild disc height loss. No spondylolysis on the oblique views. Vertebral body heights are preserved. Posterior elements are intact. IMPRESSION: 1. Mild facet joint arthropathy from L3-4 to L5-S1. Mild L5-S1 spondylosis. 2. Grade 1 L4-5 anterolisthesis MACRO: None. Signed by: Anny Trejo 07/28/2023 10:30 AM Dictation workstation: [id number] [facility] XR Lumbar spine 4 Viewson Radiology Study observation (narrative) [facility] Work Phone: Absolute lymphocyte countOrd ered By: Liana Oropeza on 03-20-2023 Lymphocytes Auto (Unsp spec) [#/Vol] 2.19 10*3/uL 0.83-4.51 [facility] Basophil percentageOrdered B y: Liana Oropeza on 03-20-2023 Basophils/100 WBC (Bld) 0.5 % 0-1 [facility] Chloride [Moles/Vol] 111 mmol/L 98-107 [facility] Eosinophils/100 WBC (Bld) 1.3 % 0-5 [facility] Glucose [Mass/Vol] 103 mg/dL 74-[address] [facility] Comment on above: Fasting Glucose resu lt from 100 to 125 mg/dL suggests IMPAIRED HOMEOSTASIS per A.D.A. criteria. Neutrophils (Bld) [#/Vol] 5.6 10*3/uL 2.0-7.7 [facility] Neutrophils/100 WBC (Bld) 65.3 % 47-70 [facility] Potassium [Moles/Vol] 4.5 mmol/L 3.5-5.1 [facility] Sodium [Moles/Vol] 139 mmol/L 136-[address] [facility] WBC (Bld) [#/Vol] 8.6 10*3/uL 4.4-11.[address] [facility] Blood erythrocytes count (nu mber/volume)Ordered By: Liana Oropeza on 03-20-2023 RBC (Bld) [#/Vol] 4.35 10*6/uL 4.2-5.4 [facility] Blood hemoglobin measurement (mass/volume)Ordered By: Liana Oropeza on 03-20-2023 Hemoglobin (Bld) [Mass/Vol] 12.5 g/dL 12.0-15.0 [facility] Blood lymphocytes/100 leukoc ytesOrdered By: Liana Oropeza on 03-20-2023 Lymphocytes/100 WBC (Bld) 25.5 % 19-41 [facility] Blood monocytes/100 leukocyt esOrdered By: Liana Oropeza on 03-20-2023 Monocytes/100 WBC (Bld) 6.9 % 0-10 [facility] Blood platelet mean volumeOr dered By: Liana Oropeza on 03-20-2023 Platelet mean volume (Bld) [Entitic vol] 11.7 fL 6.2-12.0 [facility] Determination of erythrocyte mean corpuscular volume (MCV)Ordered By: Liana Oropeza on 03-20-2023 MCV (RBC) [Entitic vol] 89.9 fL 81-99 [facility] Hematocrit Auto (Bld) [Volum e fraction]Ordered By: Liana Oropeza on 03-20-2023 Hematocrit (Bld) [Volume fraction] 39.1 % 37-47 [facility] Laboratory - Chemistry and C hemistry - challengeOrdered By: Liana Oropeza on 03-20-2023 CO2 [Moles/Vol] 26.0 mmol/L 21.0-32.0 [facility] Natriuretic peptide B (Bld) [Mass/Vol] 33.7 pg/mL 0-100 [facility] Urea nitrogen/Creatinine [Mass ratio] 20.1 mg/mg 10-20 [facility] Laboratory - Hematology and Cell countsOrdered By: Linaa Oropeza on 03-20-2023 Erythrocyte distribution width (RBC) [Entitic vol] 45.6 fL 35.1-43.9 [facility] Erythrocyte distribution width (RBC) [Ratio] 14.1 % 11.6-14.6 [facility] Immature granulocytes/100 WBC (Bld) 0.500 % 0.0-0.9 [facility] Comment on above: IG% - Immature Granu locytes (promyelocytes, myelocytes and metamyelocytes) > 1% indicates that a LEFT SHIFT is Present. MCH (RBC) [Entitic mass] 28.7 pg 27.0-32.0 [facility] Nucleated RBC/100 WBC (Bld) [Ratio] 0 % 0-5 [facility] MCHC Auto (RBC) [Mass/Vol]Or dered By: Liana Oropeza on 03-20-2023 MCHC (RBC) [Mass/Vol] 32.0 g/dL 32-36 [facility] No Panel InformationOrdered By: Liana Oropeza on 03-20-2023 Estimated GFR (MDRD) Amer 108 mL/min >60 [facility] Comment on above: GFR Calc Estimated GFR (MDRD) Non-Af Amer 90 mL/min >60 [facility] Comment on above: Non- GFR Calc Platelets bldOrdered By: Jewel Oropeza on 03-20-2023 Platelets (Bld) [#/Vol] 180 10*3/uL 150-450 [facility] Serum or plasma calcium na urement (mass/volume)Ordered By: Liana Oropeza on 03-20-2023 Calcium [Mass/Vol] 8.7 mg/dL 8.5-10.[address] [facility] Serum or plasma creatinine m easurement (mass/volume)Ordered By: Liana Oropeza on 03-20-2023 Creatinine [Mass/Vol] 0.70 mg/dL 0.55-1.02 [facility] Comment on above: The validity of the calculated GFR & GFRAA in patients over 70 years has not been determined. Clinical correlation is essential. Serum or plasma urea nitroge n measurement (mass/volume)Ordered By: Liana Oropeza on 03-20-2023 Urea nitrogen [Mass/Vol] 14 mg/dL 7-18 [facility] Thin prep Papanicolaou smear with manual screeningOrdered By: Liana Oropeza on 03-20-2023 Thin prep Papanicolaou smear with manual screening 2 5-15 [facility] Basophil percentageOrdered B y: Matthew Patel on 02-19-2023 Bilirubin [Mass/Vol] 0.60 mg/dL 0.20-1.00 [facility] Comment on above: For patients on eltr ombopag therapy, use of Dimension Collins TBIL is not recommended. Chloride [Moles/Vol] 108 mmol/L 98-107 [facility] Cholesterol [Mass/Vol] 145 mg/dL <200 [facility] Comment on above: <200 mg/dL Desirable 200-240 mg/dL Borderline >240 mg/dL High Risk Glucose [Mass/Vol] 127 mg/dL 74-[address] [facility] Comment on above: Fasting Glucose resu lt greater than or equal to 126 mg/dL suggests DIABETES MELLITUS per A.D.A. criteria. Potassium [Moles/Vol] 4.6 mmol/L 3.5-5.1 [facility] Protein [Mass/Vol] 7.3 g/dL 6.4-8.[address] [facility] Sodium [Moles/Vol] 141 mmol/L 136-[address] [facility] Triglyceride [Mass/Vol] 201 mg/dL <199 [facility] Comment on above: The drugs N-Acetylcy steine and Metamizole may falsely depress this assay.Serum Triglycerides Reference Interval Normal <150 mg/dL Borderline high 150 - 199 mg/dL High 200 - 499 mg/dL Very High > or = 500 mg/dL Laboratory - Chemistry and C hemistry - challengeOrdered By: Matthew Patel on 02-19-2023 ALP [Catalytic activity/Vol] 73 U/L 45-117 [facility] ALT [Catalytic activity/Vol] 45 U/L 13-56 [facility] CO2 [Moles/Vol] 26.0 mmol/L 21.0-32.0 [facility] Globulin (S) [Mass/Vol] 3.6 g/dL 2.2-4.2 [facility] Urea nitrogen/Creatinine [Mass ratio] 28.6 mg/mg 10-20 [facility] No Panel InformationOrdered By: Matthew Patel on 02-19-2023 Estimated GFR (MDRD) Amer 150 mL/min >60 [facility] Comment on above: GFR Calc Estimated GFR (MDRD) Non-Af Amer 124 mL/min >60 [facility] Comment on above: Non- GFR Calc Urine Microalbumin/Creatinine Ratio 19.3 mg/g CRE <30 [facility] Serum or plasma albumin na urement (mass/volume)Ordered By: Matthew Patel on 02-19-2023 Albumin [Mass/Vol] 3.7 g/dL 3.2-5.0 [facility] [facility] Serum or plasma albumin/glob ulin mass ratioOrdered By: Matthew Patel on 02-19-2023 Albumin/Globulin [Mass ratio] 1.0 {ratio} 0.9-2.4 [facility] Serum or plasma calcium na urement (mass/volume)Ordered By: Matthew Patel on 02-19-2023 Calcium [Mass/Vol] 9.1 mg/dL 8.5-10.[address] [facility] Serum or plasma cholesterol in HDL measurement (mass/volume)Ordered By: Matthew Patel on 02-19-2023 Cholesterol in HDL [Mass/Vol] 67 mg/dL >40 [facility] Comment on above: The drugs N-Acetylcy steine and Metamizole may falsely depress this assay. Reference Range HDL <40 mg/dL Low HDL Cholesterol HDL >or= 60 mg/dL High HDL Cholesterol Serum or plasma cholesterol in VLDL measurement (mass/volume)Ordered By: Matthew Patel on 02-19-2023 Cholesterol in VLDL [Mass/Vol] 40 mg/dL 5-40 [facility] Serum or plasma creatinine m easurement (mass/volume)Ordered By: Matthew Patel on 02-19-2023 Creatinine [Mass/Vol] 0.52 mg/dL 0.55-1.02 [facility] Comment on above: The validity of the calculated GFR & GFRAA in patients over 70 years has not been determined. Clinical correlation is essential. Serum or plasma low density lipoprotein (LDL) cholesterol measurement (mass/volume)Ordered By: Matthew Patel on 02-19-2023 Cholesterol in LDL [Mass/Vol] 38 mg/dL 0-130 [facility] Serum or plasma urea nitroge n measurement (mass/volume)Ordered By: Matthew Patel on 02-19-2023 Urea nitrogen [Mass/Vol] 15 mg/dL 7-18 [facility] Thin prep Papanicolaou smear with manual screeningOrdered By: Matthew Patel on 02-19-2023 Thin prep Papanicolaou smear with manual screening 34 U/L 15-37 [facility] Thin prep Papanicolaou smear with manual screening 7 5-15 [facility] Thin prep Papanicolaou smear with manual screening 23.0 mg/L NO RANGE EST. [facility] Urine creatinine measurement (mass/volume)Ordered By: Matthew Patel on 02-19-2023 Creatinine (U) [Mass/Vol] 119.00 mg/dL NO RANGE EST. [facility] Culture, urineOrdered By: Jose Watson on 10-21-2022 Bacteria identified Cx Nom (U) Mixed Gram Pos & Gram Neg Org [facility] Culture, urineOrdered By: Jose Watson on 10-17-2022 Bacteria identified Cx Nom (U) Mixed Gram Pos & Gram Neg Org [facility] Culture, urineOrdered By: Dr Sigrid Alvarenga on 10-05-2022 Bacteria identified Cx Nom (U) Escherichia coli [facility] Culture, urineOrdered By: La Alvarenga on 10-03-2022 Bacteria identified Cx Nom (U) Escherichia coli [facility] Basophil percentageOrdered B y: Dr. Patel on 08-22-2022 Chloride [Moles/Vol] 106 mmol/L 98-107 [facility] Cholesterol [Mass/Vol] 152 mg/dL <200 [facility] Comment on above: <200 mg/dL Desirable 200-240 mg/dL Borderline >240 mg/dL High Risk Glucose [Mass/Vol] 179 mg/dL 74-[address] [facility] Comment on above: Fasting Glucose resu lt greater than or equal to 126 mg/dL suggests DIABETES MELLITUS per A.D.A. criteria. Potassium [Moles/Vol] 3.9 mmol/L 3.5-5.1 [facility] Sodium [Moles/Vol] 139 mmol/L 136-[address] [facility] Triglyceride [Mass/Vol] 201 mg/dL <199 [facility] Comment on above: The drugs N-Acetylcy steine and Metamizole may falsely depress this assay.Serum Triglycerides Reference Interval Normal <150 mg/dL Borderline high 150 - 199 mg/dL High 200 - 499 mg/dL Very High > or = 500 mg/dL Laboratory - Chemistry and C hemistry - challengeOrdered By: Dr. Patel on 08-22-2022 CO2 [Moles/Vol] 26.0 mmol/L 21.0-32.0 [facility] Urea nitrogen/Creatinine [Mass ratio] 26.6 mg/mg 10-20 [facility] No Panel InformationOrdered By: Dr. Patel on 08-22-2022 Estimated GFR (MDRD) Amer 138 mL/min >60 [facility] Comment on above: GFR Calc Estimated GFR (MDRD) Non-Af Amer 114 mL/min >60 [facility] Comment on above: Non- GFR Calc Serum or plasma calcium na urement (mass/volume)Ordered By: Dr. Patel on 08-22-2022 Calcium [Mass/Vol] 8.9 mg/dL 8.5-10.[address] [facility] Serum or plasma cholesterol in HDL measurement (mass/volume)Ordered By: Dr. Patel on 08-22-2022 Cholesterol in HDL [Mass/Vol] 49 mg/dL >40 [facility] Comment on above: The drugs N-Acetylcy steine and Metamizole may falsely depress this assay. Reference Range HDL <40 mg/dL Low HDL Cholesterol HDL >or= 60 mg/dL High HDL Cholesterol Serum or plasma cholesterol in VLDL measurement (mass/volume)Ordered By: Dr. Patel on 08-22-2022 Cholesterol in VLDL [Mass/Vol] 40 mg/dL 5-40 [facility] Serum or plasma creatinine m easurement (mass/volume)Ordered By: Dr. Patel on 08-22-2022 Creatinine [Mass/Vol] 0.56 mg/dL 0.55-1.02 [facility] Comment on above: The validity of the calculated GFR & GFRAA in patients over 70 years has not been determined. Clinical correlation is essential. Serum or plasma low density lipoprotein (LDL) cholesterol measurement (mass/volume)Ordered By: Dr. Patel on 08-22-2022 Cholesterol in LDL [Mass/Vol] 63 mg/dL 0-130 [facility] Serum or plasma urea nitroge n measurement (mass/volume)Ordered By: Dr. Patel on 08-22-2022 Urea nitrogen [Mass/Vol] 15 mg/dL 7-18 [facility] Thin prep Papanicolaou smear with manual screeningOrdered By: Dr. Patel on 08-22-2022 Thin prep Papanicolaou smear with manual screening 7 5-15 [facility] Fungus cultureOrdered By: Dr Sigrid Gant on 08-16-2022 Fungus identified Cx Nom (Unsp spec) [facility] Culture, urineOrdered By: Dr Sigrid Patel on 08-11-2022 Bacteria identified Cx Nom (U) Mixed Gram Pos & Gram Neg Org [facility] Culture, urineOrdered By: Jimenez Patel on 08-09-2022 Bacteria identified Cx Nom (U) Mixed Gram Pos & Gram Neg Org [facility] Culture, urineOrdered By: Dr Sigrid Gant on 07-16-2022 Bacteria identified Cx Nom (U) Serratia marcescens [facility] Basophil percentageOrdered B y: Dr. Gant on 07-14-2022 Basophil percentage 10-25 SEEN /hpf 0-5 [facility] Bilirubin Test strip Ql (U)O rdered By: Dr. Gant on 07-14-2022 Bilirubin Ql (U) Negative Negative [facility] Ketones Test strip Ql (U)Ord ered By: Dr. Gant on 07-14-2022 Ketones Ql (U) 15 mg/dl Negative [facility] Mucus LM Ql (Urine sed)Order ed By: Dr. Gant on 07-14-2022 Mucus Ql (Urine sed) 0 SEEN /hpf [facility] Nitrite Test strip Ql (U)Ord ered By: Dr. Gant on 07-14-2022 Nitrite Ql (U) Negative Negative [facility] Protein Test strip Ql (U)Ord ered By: Dr. Gant on 07-14-2022 Protein Ql (U) Negative Negative [facility] Squamous epithelial cells de tection in urine sediment by light microscopyOrdered By: Dr. Gant on 07-14-2022 Epithelial cells.squamous LM Ql (Urine sed) 0 SEEN /hpf 5-10 [facility] Urine blood detectionOrdered By: Dr. Gant on 07-14-2022 RBC Ql (U) 10 /ul Negative [facility] RBC Ql (U) 0 SEEN /hpf 0-5 [facility] Urine clarityOrdered By: Dr. Gant on 07-14-2022 Clarity (U) Sl. Cloudy Clear [facility] Urine color determinationOrd ered By: Dr. Gant on 07-14-2022 Color (U) Yellow Yellow [facility] Urine glucose detectionOrder ed By: Dr. Gant on 07-14-2022 Glucose Ql (U) Normal mg/dl Normal [facility] Urine leukocyte esterase det ection by dipstickOrdered By: Dr. Gant on 07-14-2022 Leukocyte esterase Test strip Ql (U) 25 /ul Negative [facility] Urine pHOrdered By: Dr. Luis torrez on 07-14-2022 pH (U) 6.0 [pH] 5.0 - 8.0 [facility] Urine sediment bacteria coun t by microscopy (number/high power field)Ordered By: Dr. Gant on 07-14-2022 Bacteria LM.HPF (Urine sed) [#/Area] 2 /[HPF] None Seen [facility] Urine specific gravity measu rementOrdered By: Dr. Gant on 07-14-2022 Specific gravity (U) [Rel density] 1.020 1.002-1.030 [facility] Urobilinogen Auto test strip Ql (U)Ordered By: Dr. Gant on 07-14-2022 Urobilinogen Ql (U) Normal mg/dl Normal [facility] Culture, urineOrdered By: Dr Sigrid Patel on 06-12-2022 Bacteria identified Cx Nom (U) Serratia marcescens [facility] Bacteria identified Cx Nom (U) Enterococcus faecalis [facility] Glucose Glucometer (BldC) [M ass/Vol]Ordered By: Dr. Hahn on 03-28-2022 Glucose [Mass/Vol] 146 mg/dL 74-[address] [facility] Comment on above: MANAGEMENT OF PATIEN T CARE PER NURSING PROTOCOL Basophil percentageon 2021 Chloride [Moles/Vol] 107 mmol/L 98-107 [facility] Work Phone: Glucose [Mass/Vol] 181 mg/dL 74-[address] [facility] Work Phone: Comment on above: Fasting Glucose resu lt greater than or equal to 126 mg/dL suggests DIABETES MELLITUS per A.D.A. criteria. Potassium [Moles/Vol] 4.1 mmol/L 3.5-5.1 [facility] Work Phone: Sodium [Moles/Vol] 140 mmol/L 136-[address] [facility] Work Phone: Laboratory - Chemistry and C hemistry - challengeon 02-15-2022 CO2 [Moles/Vol] 25.0 mmol/L 21.0-32.0 [facility] Work Phone: Urea nitrogen/Creatinine [Mass ratio] 20.5 mg/mg 10-20 [facility] Work Phone: No Panel Informationon 02-15 Estimated GFR (MDRD) Amer 147 mL/min >60 [facility] Work Phone: Comment on above: GFR Calc Estimated GFR (MDRD) Non-Af Amer 121 mL/min >60 [facility] Work Phone: Comment on above: Non- GFR Calc Serum or plasma calcium na urement (mass/volume)on 02-15-2022 Calcium [Mass/Vol] 8.7 mg/dL 8.5-10.[address] [facility] Work Phone: Serum or plasma creatinine m easurement (mass/volume)on 02-15-2022 Creatinine [Mass/Vol] 0.54 mg/dL 0.55-1.02 [facility] Work Phone: Comment on above: The validity of the calculated GFR & GFRAA in patients over 70 years has not been determined. Clinical correlation is essential. Serum or plasma urea nitroge n measurement (mass/volume)on 02-15-2022 Urea nitrogen [Mass/Vol] 11 mg/dL 7-18 [facility] Work Phone: Thin prep Papanicolaou smear with manual screeningon 02-15-2022 Thin prep Papanicolaou smear with manual screening 8 5-15 [facility] Work Phone: Glucose Glucometer (BldC) [M ass/Vol]on 02-06-2022 Glucose [Mass/Vol] 165 mg/dL 74-[address] [facility] Work Phone: Comment on above: MANAGEMENT OF PATIEN T CARE PER NURSING PROTOCOL Absolute lymphocyte counton 02-05-2022 Lymphocytes Auto (Unsp spec) [#/Vol] 1.43 10*3/uL 0.83-4.51 [facility] Work Phone: Basophil percentageon 2021 Basophils/100 WBC (Bld) 0.2 % 0-1 [facility] Work Phone: Chloride [Moles/Vol] 111 mmol/L 98-107 [facility] Work Phone: Eosinophils/100 WBC (Bld) 3.6 % 0-5 [facility] Work Phone: Glucose [Mass/Vol] 153 mg/dL 74-[address] [facility] Work Phone: Comment on above: Fasting Glucose resu lt greater than or equal to 126 mg/dL suggests DIABETES MELLITUS per A.D.A. criteria. Neutrophils (Bld) [#/Vol] 3.2 10*3/uL 2.0-7.7 [facility] Work Phone: Neutrophils/100 WBC (Bld) 60.5 % 47-70 [facility] Work Phone: Potassium [Moles/Vol] 3.2 mmol/L 3.5-5.1 [facility] Work Phone: Sodium [Moles/Vol] 142 mmol/L 136-[address] [facility] Work Phone: WBC (Bld) [#/Vol] 5.2 10*3/uL 4.4-11.[address] [facility] Work Phone: Blood erythrocytes count (nu mber/volume)on 02-05-2022 RBC (Bld) [#/Vol] 4.19 10*6/uL 4.2-5.4 [facility] Work Phone: Blood hemoglobin measurement (mass/volume)on 02-05-2022 Hemoglobin (Bld) [Mass/Vol] 12.2 g/dL 12.0-15.0 [facility] Work Phone: Blood lymphocytes/100 leukoc yteson 02-05-2022 Lymphocytes/100 WBC (Bld) 27.3 % 19-41 [facility] Work Phone: Blood monocytes/100 leukocyt eson 02-05-2022 Monocytes/100 WBC (Bld) 8.2 % 0-10 [facility] Work Phone: Blood platelet mean volumeon 02-05-2022 Platelet mean volume (Bld) [Entitic vol] 11.2 fL 6.2-12.0 [facility] Work Phone: Determination of erythrocyte mean corpuscular volume (MCV)on 02-05-2022 MCV (RBC) [Entitic vol] 89.5 fL 81-99 [facility] Work Phone: Hematocrit Auto (Bld) [Volum e fraction]on 02-05-2022 Hematocrit (Bld) [Volume fraction] 37.5 % 37-47 [facility] Work Phone: Laboratory - Chemistry and C hemistry - challengeon 02-05-2022 CO2 [Moles/Vol] 24.0 mmol/L 21.0-32.0 [facility] Work Phone: Urea nitrogen/Creatinine [Mass ratio] 19.4 mg/mg 10-20 [facility] Work Phone: Laboratory - Hematology and Cell countson 02-05-2022 Erythrocyte distribution width (RBC) [Entitic vol] 44.9 fL 35.1-43.9 [facility] Work Phone: Erythrocyte distribution width (RBC) [Ratio] 13.9 % 11.6-14.6 [facility] Work Phone: Immature granulocytes/100 WBC (Bld) 0.200 % 0.0-0.9 [facility] Work Phone: Comment on above: IG% - Immature Granu locytes (promyelocytes, myelocytes and metamyelocytes) > 1% indicates that a LEFT SHIFT is Present. MCH (RBC) [Entitic mass] 29.1 pg 27.0-32.0 [facility] Work Phone: Nucleated RBC/100 WBC (Bld) [Ratio] 0 % 0-5 [facility] Work Phone: MCHC Auto (RBC) [Mass/Vol]on 02-05-2022 MCHC (RBC) [Mass/Vol] 32.5 g/dL 32-36 [facility] Work Phone: No Panel Informationon 02-05 Estimated Creatinine Clearance Calc 113.40 ml/min [facility] Work Phone: Estimated GFR (MDRD) Amer 232 mL/min >60 [facility] Work Phone: Comment on above: GFR Calc Estimated GFR (MDRD) Non-Af Amer 192 mL/min >60 [facility] Work Phone: Comment on above: Non- GFR Calc Platelets bldon 02-05-2022 Platelets (Bld) [#/Vol] 156 10*3/uL 150-450 [facility] Work Phone: Serum or plasma calcium na urement (mass/volume)on 02-05-2022 Calcium [Mass/Vol] 8.3 mg/dL 8.5-10.1 [facility] Work Phone: Serum or plasma creatinine m easurement (mass/volume)on 02-05-2022 Creatinine [Mass/Vol] 0.36 mg/dL 0.55-1.02 [facility] Work Phone: Comment on above: The validity of the calculated GFR & GFRAA in patients over 70 years has not been determined. Clinical correlation is essential. Serum or plasma urea nitroge n measurement (mass/volume)on 02-05-2022 Urea nitrogen [Mass/Vol] 7 mg/dL 7-18 [facility] Work Phone: Thin prep Papanicolaou smear with manual screeningon 02-05-2022 Thin prep Papanicolaou smear with manual screening 7 5-15 [facility] Work Phone: Laboratory - Chemistry and C hemistry - challengeon 02-04-2022 Magnesium [Mass/Vol] 1.7 mg/dL 1.6-2.6 [facility] Work Phone: No Panel Informationon 02-04 Troponin I High Sensitivity 8 pg/mL 3.0-54.0 [facility] Work Phone: Comment on above: Please Note: New Cindy t Units and Gender Specific Reference Ranges. For more information see Policy Stat Procedure Collins High Sensitivity Troponin (TNIH) and attachments. Absolute lymphocyte counton 02-03-2022 Lymphocytes Auto (Unsp spec) [#/Vol] 1.57 10*3/uL 0.83-4.51 [facility] Work Phone: Basophil percentageon 2021 Basophils/100 WBC (Bld) 0.4 % 0-1 [facility] Work Phone: Bilirubin [Mass/Vol] 0.70 mg/dL 0.20-1.00 [facility] Work Phone: Comment on above: For patients on eltr ombopag therapy, use of Dimension Collins TBIL is not recommended. Chloride [Moles/Vol] 107 mmol/L 98-107 [facility] Work Phone: Eosinophils/100 WBC (Bld) 3.3 % 0-5 [facility] Work Phone: Glucose [Mass/Vol] 196 mg/dL 74-[address] [facility] Work Phone: Comment on above: Fasting Glucose resu lt greater than or equal to 126 mg/dL suggests DIABETES MELLITUS per A.D.A. criteria. Neutrophils (Bld) [#/Vol] 5.5 10*3/uL 2.0-7.7 [facility] Work Phone: Neutrophils/100 WBC (Bld) 69.7 % 47-70 [facility] Work Phone: Potassium [Moles/Vol] 4.6 mmol/L 3.5-5.1 [facility] Work Phone: Protein [Mass/Vol] 7.7 g/dL 6.4-8.[address] [facility] Work Phone: Sodium [Moles/Vol] 141 mmol/L 136-[address] [facility] Work Phone: WBC (Bld) [#/Vol] 7.9 10*3/uL 4.4-11.[address] [facility] Work Phone: Blood erythrocytes count (nu mber/volume)on 02-03-2022 RBC (Bld) [#/Vol] 4.78 10*6/uL 4.2-5.4 [facility] Work Phone: Blood hemoglobin measurement (mass/volume)on 02-03-2022 Hemoglobin (Bld) [Mass/Vol] 13.5 g/dL 12.0-15.0 [facility] Work Phone: Blood lymphocytes/100 leukoc yteson 02-03-2022 Lymphocytes/100 WBC (Bld) 19.9 % 19-41 [facility] Work Phone: Blood monocytes/100 leukocyt eson 02-03-2022 Monocytes/100 WBC (Bld) 6.3 % 0-10 [facility] Work Phone: Blood platelet mean volumeon 02-03-2022 Platelet mean volume (Bld) [Entitic vol] 11.9 fL 6.2-12.0 [facility] Work Phone: Determination of erythrocyte mean corpuscular volume (MCV)on 02-03-2022 MCV (RBC) [Entitic vol] 88.1 fL 81-99 [facility] Work Phone: Hematocrit Auto (Bld) [Volum e fraction]on 02-03-2022 Hematocrit (Bld) [Volume fraction] 42.1 % 37-47 [facility] Work Phone: Laboratory - Chemistry and C hemistry - challengeon 02-03-2022 ALP [Catalytic activity/Vol] 89 U/L 45-117 [facility] Work Phone: ALT [Catalytic activity/Vol] 59 U/L 13-56 [facility] Work Phone: CO2 [Moles/Vol] 23.0 mmol/L 21.0-32.0 [facility] Work Phone: Globulin (S) [Mass/Vol] 3.8 g/dL 2.2-4.2 [facility] Work Phone: Lipase [Catalytic activity/Vol] 417 U/L 73-393 [facility] Work Phone: Urea nitrogen/Creatinine [Mass ratio] 27.4 mg/mg 10-20 [facility] Work Phone: Laboratory - Hematology and Cell countson 02-03-2022 Erythrocyte distribution width (RBC) [Entitic vol] 43.0 fL 35.1-43.9 [facility] Work Phone: Erythrocyte distribution width (RBC) [Ratio] 13.4 % 11.6-14.6 [facility] Work Phone: Immature granulocytes/100 WBC (Bld) 0.400 % 0.0-0.9 [facility] Work Phone: Comment on above: IG% - Immature Granu locytes (promyelocytes, myelocytes and metamyelocytes) > 1% indicates that a LEFT SHIFT is Present. MCH (RBC) [Entitic mass] 28.2 pg 27.0-32.0 [facility] Work Phone: Nucleated RBC/100 WBC (Bld) [Ratio] 0 % 0-5 [facility] Work Phone: MCHC Auto (RBC) [Mass/Vol]on 02-03-2022 MCHC (RBC) [Mass/Vol] 32.1 g/dL 32-36 [facility] Work Phone: No Panel Informationon 02-03 Estimated Creatinine Clearance Calc 70.39 ml/min [facility] Work Phone: Estimated GFR (MDRD) Amer 133 mL/min >60 [facility] Work Phone: Comment on above: GFR Calc Estimated GFR (MDRD) Non-Af Amer 110 mL/min >60 [facility] Work Phone: Comment on above: Non- GFR Calc Platelets bldon 02-03-2022 Platelets (Bld) [#/Vol] 179 10*3/uL 150-450 [facility] Work Phone: Serum or plasma albumin na urement (mass/volume)on 02-03-2022 Albumin [Mass/Vol] 3.9 g/dL 3.2-5.[address] [facility] Work Phone: Serum or plasma albumin/glob ulin mass ratioon 02-03-2022 Albumin/Globulin [Mass ratio] 1.0 {ratio} 0.9-2.4 [facility] Work Phone: Serum or plasma calcium na urement (mass/volume)on 02-03-2022 Calcium [Mass/Vol] 9.9 mg/dL 8.5-10.[address] [facility] Work Phone: Serum or plasma creatinine m easurement (mass/volume)on 02-03-2022 Creatinine [Mass/Vol] 0.58 mg/dL 0.55-1.02 [facility] Work Phone: Comment on above: The validity of the calculated GFR & GFRAA in patients over 70 years has not been determined. Clinical correlation is essential. Serum or plasma urea nitroge n measurement (mass/volume)on 02-03-2022 Urea nitrogen [Mass/Vol] 16 mg/dL 7-18 [facility] Work Phone: Thin prep Papanicolaou smear with manual screeningon 02-03-2022 Thin prep Papanicolaou smear with manual screening 54 U/L 15-37 [facility] Work Phone: Thin prep Papanicolaou smear with manual screening 11 5-15 [facility] Work Phone: Basophil percentageon 2021 Chloride [Moles/Vol] 104 mmol/L 98-107 [facility] Work Phone: Glucose [Mass/Vol] 178 mg/dL 74-[address] [facility] Work Phone: Comment on above: Fasting Glucose resu lt greater than or equal to 126 mg/dL suggests DIABETES MELLITUS per A.D.A. criteria. Potassium [Moles/Vol] 4.4 mmol/L 3.5-5.1 [facility] Work Phone: Sodium [Moles/Vol] 139 mmol/L 136-[address] [facility] Work Phone: Laboratory - Chemistry and C hemistry - challengeon 10-07-2021 CO2 [Moles/Vol] 27.0 mmol/L 21.0-32.0 [facility] Work Phone: Urea nitrogen/Creatinine [Mass ratio] 19.3 mg/mg - [facility] Work Phone: No Panel Informationon 10-07 Estimated GFR (MDRD) Amer 113 mL/min >60 [facility] Work Phone: Comment on above: GFR Calc Estimated GFR (MDRD) Non-Af Amer 93 mL/min >60 [facility] Work Phone: Comment on above: Non- GFR Calc Serum or plasma calcium na urement (mass/volume)on 10-07-2021 Calcium [Mass/Vol] 9.4 mg/dL 8.5-10.[address] [facility] Work Phone: Serum or plasma creatinine m easurement (mass/volume)on 10-07-2021 Creatinine [Mass/Vol] 0.68 mg/dL 0.55-1.02 [facility] Work Phone: Comment on above: The validity of the calculated GFR & GFRAA in patients over 70 years has not been determined. Clinical correlation is essential. Serum or plasma urea nitroge n measurement (mass/volume)on 10-07-2021 Urea nitrogen [Mass/Vol] 13 mg/dL 7-18 [facility] Work Phone: Thin prep Papanicolaou smear with manual screeningon 10-07-2021 Thin prep Papanicolaou smear with manual screening 8 5-15 [facility] Work Phone: C Urineon 08-04-2018 C Urine Final Report: Rare Normal skin edilson isolated Normal [facility] Comment on above: Performed By: #### [id number] #### MIRTHA [employer] [place] [address] CMPon 07-09-2018 Albumin mass conc 4.1 g/dL Normal 3.4-5.0 [facility] Comment on above: Performed By: #### [id number] #### MIRTHA [employer] [address] [place] [id number] Albumin/Globulin mass ratio 1.7 {ratio} Normal 1.1-1.9 [facility] Comment on above: Performed By: [id number] #### [facility] [address] [place] [address] Alk Phos 60 Int._Unit/L Normal 33-136 [facility] Comment on above: Performed By: #### [id number] #### [facility] [employer] [address] [place] [address] ALT enzyme act/vol 33 Int._Unit/L Normal 7-45 [facility] Comment on above: Performed By: #### 2 [id number] #### [employer] [address] [place] [address] Anion gap molar conc 12 mmol/L Normal 10-20 [facility] Comment on above: Performed By: #### 2 [id number] #### [employer]THACh[employer] [facility] [place] [address] AST enzyme act/vol 26 Int._Unit/L Normal 9-39 [facility] Comment on above: Performed By: #### 2 [id number] #### MIRTHA [employer] [address] [place] [address] Bili Total 1.04 mg/dL Normal 0.00-1.20 [facility] Comment on above: Performed By: #### 2 [id number] #### MIRTHAChino [employer] [address] [place] [address] Calcium mass conc 8.9 mg/dL Normal 8.6-10.3 [facility] Comment on above: Performed By: #### 2 [id number] #### MIRTHA [employer] [address] [place] [address] Chloride molar conc 107 mmol/L Normal 98-107 [facility] Comment on above: Performed By: #### 2 [id number] #### MIRTHA [employer] [address] [place] [address] CO2 molar conc 27.0 mmol/L Normal 21.0-32.0 [facility] Comment on above: Performed By: #### 2 [id number] #### MIRTHA [employer] [address] [place] [address] Creatinine mass conc 0.6 mg/dL Normal 0.5-1.1 [facility] Comment on above: Performed By: #### 2 [id number] #### MIRTHA [employer] [address] [place] [address] Globulin mass conc (S) 2.0 g/dL Normal 2.0-4.0 [facility] Comment on above: Performed By: #### 2 [id number] #### MIRTHA [employer] [address] [place] [address] Glucose mass conc 150 mg/dL High 70-99 [facility] Comment on above: Performed By: #### 2 066946 #### MIRTHA [employer] [address] [place] [address] Potassium molar conc 4.1 mmol/L Normal 3.5-5.3 [facility] Comment on above: Performed By: #### 2 [id number] #### MIRTHA [employer] [address] [place] [address] Protein mass conc 6.5 g/dL Normal 6.4-8.2 [facility] Comment on above: Performed By: #### 2 [id number] #### MIRTHA [employer] [address] [place] [address] Sodium molar conc 142 mmol/L Normal 136-145 [facility] Comment on above: Performed By: #### 2 [id number] #### MIRTHA [employer] [address] [place] [address] Urea nitrogen mass conc 15 mg/dL Normal 6-23 [facility] Comment on above: Performed By: #### 2 [id number] #### MIRTHA [employer] [address] [place] [address] Urea nitrogen/Creatinine mass ratio 25.0 ratio Normal 5.4-30.0 [facility] Comment on above: Performed By: #### 2 [id number] #### MIRTHA [employer] [address] [place] [address] [id number] 07-09-2018 Hemoglobin A1c/Hemoglobin.total mass fraction (Bld) 6.8 % High 4.0-6.3 [facility] Comment on above: Performed By: #### 2 [id number] #### MIRTHA [employer] [address] [place] [address] eGFRon 07-09-2018 GFR/1.73 sq M predicted among non-blacks MDRD vol rate/area (S/P/Bld) mL/min/{1.73_m2} Normal [facility] Comment on above: Order Comment: Order added by Discern Expert. Performed By: #### 2 [id number] #### MIRTHA [employer] [address] [place] [address] BMPon 02-12-2018 Calcium mass conc 9.0 mg/dL Normal 8.4-10.2 [facility] Comment on above: Performed By: #### 2 948638 #### MIR[employer]A [employer] [address] [place] [address] Chloride molar conc 101 mmol/L Normal 98-107 [facility] Comment on above: Performed By: #### 2 378944 #### MIR[employer]A [employer] [address] [place] [address] CO2 molar conc 25.7 mmol/L Normal 24.0-30.0 [facility] Comment on above: Performed By: #### 2 [id number] #### MIRTHA [employer] [address] [place] [address] Creatinine mass conc 0.5 mg/dL Low 0.6-1.3 [facility] Comment on above: Performed By: #### 2 [id number] #### MIRTHA [employer] [address] [place] [address] Glucose mass conc 289 mg/dL High 70-99 [facility] Comment on above: Performed By: #### 2 107391 #### MIRTHA [employer] [address] [place] [address] Potassium molar conc 4.4 mmol/L Normal 3.5-5.1 [facility] Comment on above: Performed By: #### 2 [id number] #### MIRTHA [employer] [address] [place] [address] Sodium molar conc 139 mmol/L Normal 136-145 [facility] Comment on above: Performed By: #### 2 156477 #### MIRTHA [employer] [address] [place] [address] Urea nitrogen mass conc 17 mg/dL Normal 7-18 [facility] Comment on above: Performed By: #### 2 [id number] #### MIRTHA Larsen [address] [place] [address] Urea nitrogen/Creatinine mass ratio 34.0 ratio High 5.4-30.0 [facility] Comment on above: Performed By: #### 2 [id number] #### MIRTHA Larsen [address] [place] [address] Hep Func Panelon 02-12-2018 Albumin mass conc 4.0 g/dL Normal 3.2-5.0 [facility] Comment on above: Performed By: #### 2 887287 #### MIRTHA Larsen [address] [place] [address] Albumin/Globulin mass ratio 1.4 {ratio} Normal 1.1-1.9 [facility] Comment on above: Performed By: #### 2 [id number] #### MIRTHA [employer] [address] [place] [address] Alk Phos 62 Int._Unit/L Normal 42-121 [facility] Comment on above: Performed By: #### 2 [id number] #### MIRTHA [employer] [address] [place] [address] ALT enzyme act/vol 60 Int._Unit/L High 10-40 [facility] Comment on above: Performed By: #### 2 [id number] #### MIR[employer]A [employer] [facility] [place] [address] AST enzyme act/vol 44 Int._Unit/L High 10-42 [facility] Comment on above: Performed By: #### 2 371210 #### MIRTHA [employer] [address] [place] [address] Bili Direct .15 mg/dL Normal .00-.20 [facility] Comment on above: Performed By: #### 2 690094 #### [employer] [address] [place] [address] Bili Indirect 1.0 Normal [facility] Comment on above: Result Comment: No e stablished ranges available for the Indirect Biliruben. Performed By: #### 2 [id number] #### MIRTHA [employer] [address] [place] [address] Bili Total 1.1 mg/dL High 0.2-1.0 [facility] Comment on above: Performed By: #### 2 836396 #### MIRTHA Larsen [facility] [place] [address] Globulin mass conc (S) 2.8 g/dL Normal 2.0-4.0 [facility] Comment on above: Performed By: #### 2 157051 #### MIRTHA Larsen [facility] [place] [address] Protein mass conc 6.8 g/dL Normal 6.4-8.3 [facility] Comment on above: Performed By: #### 2 813330 #### MIRTHA Larsen [facility] [place] [id number] 02-12-2018 Hemoglobin A1c/Hemoglobin.total mass fraction (Bld) 10.7 % High 4.0-6.3 [facility] Comment on above: Performed By: #### 2 [id number] #### MIRTHA Larsen [facility] [place] [address] Microalb/Creat Ratioon 02-12 Creatinine mass conc 17 ug/mg Normal 0-30 [facility] Comment on above: Performed By: #### 1 [id number] #### MIRTHA Larsen [facility] [place] [address] Creatinine mass conc 122.0 mg/dL Normal 20.0-300.0 [facility] Comment on above: Performed By: #### 1 [id number] #### MIRTHA Larsen [facility] [place] [address] Ur Microalbumin 2.1 mg/dL High 0.0-1.9 [facility] Comment on above: Performed By: #### 1 [id number] #### MIRTHA Larsen [facility] [place] [address] eGFRon 02-12-2018 GFR/1.73 sq M predicted among non-blacks MDRD vol rate/area (S/P/Bld) mL/min/{1.73_m2} Normal [facility] Comment on above: Order Comment: Order added by Discern Expert. Performed By: #### 1 [id number] #### MIRTHA Larsen [address] [place] [address] MA Mamm Screen w/CAD if perf ormed bilaton 09-25-2017 MA Mamm Screen w/CAD if performed bilat Exam Date/Time: 09/25/2017 10:26 EDT Reason for Exam: SCREENING;Screening Report BILATERAL DIGITAL SCREENING MAMMOGRAMS WITH CAD [employer] V2.1.3.1 HISTORY: Screening. COMPARISON: 09/21/2015, 09/15/2014, and 09/12/2013. FINDINGS: The glandular pattern is bilaterally symmetrical. There is no spiculated density, clustered microcalcification, or mass lesion seen. No architectural distortion is seen. The skin thickness is normal. IMPRESSION: Stable breast parenchyma from prior studies. BI-RADS 2 - Benign, no evidence of malignancy. Normal interval followup is recommended in 12 months. OVERALL ASSESSMENT- BENIGN A letter of notification will be sent to the patient regarding the results. Assessment / Recommendation: 2-1 Normal interval follow-up Breast density: Scattered Fibroglandular Density Recall interval: 012 months FINAL REPORT Dictated: 09/25/2017 5:04 pm Osmin Hu MD Signed (Electronic Signature): 09/25/2017 5:04 pm Signed by: Osmin Hu MD Technologist: BRIE Assessment: BI-RADS Category 2-Benign finding Recommendation: Normal interval follow-up Normal [facility] CMPon 08-24-2017 Albumin mass conc 4.3 g/dL Normal 3.2-5.0 [facility] Comment on above: Performed By: #### 2 [id number] #### MIRTHA Larsen [facility] [place] [address] Albumin/Globulin mass ratio 1.5 {ratio} Normal 1.1-1.9 [facility] Comment on above: Performed By: #### 2 [id number] #### MIRTHA Larsen [address] [place] [address] Alk Phos 51 Int._Unit/L Normal 42-121 [facility] Comment on above: Performed By: #### 2 [id number] #### MIRTHA Stinson[employer]ya [address] [place] [address] ALT enzyme act/vol 56 Int._Unit/L High 10-40 [facility] Comment on above: Performed By: #### 2 [id number] #### MIRTHA [employer] [address] [place] [address] AST enzyme act/vol 43 Int._Unit/L High 10-42 [facility] Comment on above: Performed By: #### 2 822826 #### MIR[employer]A [employer] [address] [place] [address] Bili Total 1.2 mg/dL High 0.2-1.0 [facility] Comment on above: Performed By: #### 2 966080 #### MIR[employer]A [employer] [address] [place] [address] Creatinine mass conc 0.6 mg/dL Normal 0.6-1.3 [facility] Comment on above: Performed By: #### 2 496119 #### [facility] [address] [place] [address] Globulin mass conc (S) 2.9 g/dL Normal 2.0-4.0 [facility] Comment on above: Performed By: #### 2 718970 #### MIR[employer]A [employer] [address] [place] [address] Protein mass conc 7.2 g/dL Normal 6.4-8.3 [facility] Comment on above: Performed By: #### 2 919163 #### MIR[employer]A [employer] [address] [place] [address] Urea nitrogen mass conc 18 mg/dL Normal 7-18 [facility] Comment on above: Performed By: #### 2 [id number] #### MIRTHA [employer] [address] [place] [address] Urea nitrogen/Creatinine mass ratio 30.0 ratio Normal 5.4-30.0 [facility] Comment on above: Performed By: #### 2 960368 #### MIR[employer]A [employer] [address] [place] [address] Calcium mass conc 9.6 mg/dL Normal 8.4-10.2 [facility] Comment on above: Performed By: #### 2 915456 #### MIR[employer]A [employer] [address] [place] [address] Chloride molar conc 99 mmol/L Normal 98-107 [facility] Comment on above: Performed By: #### 2 016894 #### MIRTHA [employer] [address] [place] [address] CO2 molar conc 27.2 mmol/L Normal 24.0-30.0 [facility] Comment on above: Performed By: #### 2 [id number] #### MIRTHA [employer] [address] [place] [address] Glucose mass conc 175 mg/dL High 70-99 [facility] Comment on above: Performed By: #### 2 [id number] #### MIRTHA [employer] [address] [place] [address] Potassium molar conc 4.2 mmol/L Normal 3.5-5.1 [facility] Comment on above: Performed By: #### 2 145501 #### MIRTHA [employer] [address] [place] [address] Sodium molar conc 137 mmol/L Normal 136-145 [facility] Comment on above: Performed By: #### 2 [id number] #### MIRTHA [employer] [address] [place] [address] [id number] 08-24-2017 Hemoglobin A1c/Hemoglobin.total mass fraction (Bld) 7.6 % High 4.0-6.3 [facility] Comment on above: Performed By: #### 3 [id number] #### MIRTHA Chemistry Manual Subsection [address] [place] [address] Lipid Profileon 08-24-2017 Cholesterol in HDL mass conc 60 mg/dL Normal >=41 [facility] Comment on above: Performed By: #### 3 [id number] #### MIRTHA [employer] [address] [place] [address] Cholesterol in LDL mass conc 89 mg/dL Normal 0-130 [facility] Comment on above: Result Comment: <100 OPTIMAL 100-129 NEAR / ABOVE OPTIMAL 130-159 BORDERLINE HIGH 160-189 HIGH >190 VERY HIGH CALC LDL NOT VALID WHEN TRIGLYCERIDE IS >400 MG/DL Performed By: #### 3 [id number] #### MIRTHA [employer] [address] [place] [address] Cholesterol in VLDL mass conc 35 mg/dL Normal [facility] Comment on above: Performed By: #### 3 [id number] #### MIRTHA [employer] [address] [place] [address] Cholesterol mass conc 184 mg/dL Normal 50-200 [facility] Comment on above: Result Comment: TOTA L CHOLEESTEROL: <200 NORMAL 200 - 239 BORDERLINE HIGH >240 HIGH Performed By: #### 3 [id number] #### MIRTHA [employer] [address] [place] [address] Triglyceride mass conc 175 mg/dL High 35-150 [facility] Comment on above: Result Comment: <150 NORMAL 150-199 BORDERLINE HIGH 200-499 HIGH >500 VERY HIGH Performed By: #### 3 [id number] #### MIRTHA [employer] [address] [place] [address] TSHon 08-24-2017 Thyrotropin Qn 1.10 mIU/m Normal 0.30-5.60 [facility] Comment on above: Performed By: #### 2 [id number] #### MIRTHA [employer] [address] [place], [place] [address] eGFRon 08-24-2017 GFR/1.73 sq M predicted among non-blacks MDRD vol rate/area (S/P/Bld) mL/min/{1.73_m2} Normal [facility] Comment on above: Order Comment: Order added by Discern Expert. Performed By: #### 1 [id number] #### MIRTHA [employer] [facility] [place] [address] Vital Signs Date Time Vital Sign Value Performing Clinician Reyna stewart 01-23-2025 13: Body height 152.[address] Matthew Patel MD Work Phone: [facility] 01-23-2025 13:040 Body mass index (BMI) [Ratio] 32.3 kg/m2 Dr. Matthew Patel MD Work Phone: [facility] 01-23-2025 13: Body weight 75.[address] Matthew Patel MD Work Phone: [facility] 01-23-2025 13:040 Diastolic blood pressure 76 mm[Hg] Dr. Matthew Patel MD Work Phone: [facility] 01-23-2025 13:22-0400 Heart rate 81 /min Dr. Matthew Patel MD Work Phone: [facility] 01-23-2025 13:22-0400 Systolic blood pressure 144 mm[Hg] Dr. Matthew Patel MD Work Phone: [facility] 03-20-2023 13:06-0400 Body height 152.[address] Matthew Patel Work Phone: [facility] 03-20-2023 13:06-0400 Body mass index (BMI) [Ratio] 32.5 kg/m2 Dr. Matthew Patel Work Phone: [phone] [address] 03-20-2023 13:06-0400 Body weight 75.[address] Matthew Patel Work Phone: [phone])976-903665 [place] [address] 03-20-2023 13:06-0400 Diastolic blood pressure 82 mm[Hg] Dr. Matthew Patel Work Phone: [facility] 03-20-2023 13:06-0400 Heart rate 69 /min Dr. Matthew Patel Work Phone: [facility] 03-20-2023 13:06-0400 Respiratory rate 18 /min Dr. Matthew Patel Work Phone: [facility] 03-20-2023 13:06-0400 SaO2% (BldA) [Mass fraction] 96 % Dr. Matthew Patel Work Phone: [facility] 03-20-2023 13:06-0400 Systolic blood pressure 123 mm[Hg] Dr. Matthew Patel Work Phone: [phone])[phone] [place] [address] 03-28-2022 08:50-0500 Body temperature 98.2 [degF] Dr. Matthew Patel Work Phone: [facility] 03-28-2022 08:50-0500 Diastolic blood pressure 72 mm[Hg] Dr. Matthew Patel Work Phone: [phone])[phone] [place] [address] 03-28-2022 08:50-0500 Heart rate 64 /min Dr. Matthew Patel Work Phone: [facility] 03-28-2022 08:50-0500 Respiratory rate 16 /min Dr. Matthew Patel Work Phone: [facility] 03-28-2022 08:50-0500 SaO2% (BldA) [Mass fraction] 97 % Dr. Matthew Patel Work Phone: [facility] 03-28-2022 08:50-0500 Systolic blood pressure 110 mm[Hg] Dr. Matthew Patel Work Phone: [facility] 03-28-2022 07:33-0500 Body height 152.[address] Matthew Patel Work Phone: [facility] 03-28-2022 07:33-0500 Body mass index (BMI) [Ratio] 29.7 kg/m2 Dr. Matthew Patel Work Phone: [facility] 03-28-2022 07:33-0500 Body weight [address] Matthew Patel Work Phone: [facility] 02-15-2022 10:05-0400 Body height 152.[address] Matthew Patel Work Phone: [facility] Work Phone: 02-15-2022 10:05-0400 Body temperature 97.7 [degF] Dr. Matthew Patel Work Phone: [facility] Work Phone: 02-15-2022 10:05-0400 Diastolic blood pressure 86 mm[Hg] Dr. Matthew Patel Work Phone: [facility] Work Phone: 02-15-2022 10:05-0400 Heart rate 69 /min Dr. Matthew Patel Work Phone: [facility] Work Phone: 02-15-2022 10:05-0400 Respiratory rate 17 /min Dr. Matthew Patel Work Phone: [facility] Work Phone: 02-15-2022 10:05-0400 SaO2% (BldA) [Mass fraction] 96 % Dr. Matthew Patel Work Phone: [facility] Work Phone: 02-15-2022 10:05-0400 Systolic blood pressure 156 mm[Hg] Dr. Matthew Patel Work Phone: [facility] Work Phone: 02-06-2022 08:36-0400 Body temperature 97.1 [degF] Dr. Matthew Patel Work Phone: [facility] Work Phone: 02-06-2022 08:36-0400 Diastolic blood pressure 87 mm[Hg] Dr. Matthew Patel Work Phone: [facility] Work Phone: 02-06-2022 08:36-0400 Heart rate 84 /min Dr. Matthew Patel Work Phone: [facility] Work Phone: 02-06-2022 08:36-0400 Respiratory rate 18 /min Dr. Matthew Patel Work Phone: [facility] Work Phone: 02-06-2022 08:36-0400 SaO2% (BldA) [Mass fraction] 96 % Dr. Matthew Patel Work Phone: [facility] Work Phone: 02-06-2022 08:36-0400 Systolic blood pressure 172 mm[Hg] Dr. Mathtew Patel Work Phone: [facility] Work Phone: 02-06-2022 02:15-0400 Inhaled oxygen flow rate 2 L/min Dr. Matthew Patel Work Phone: [facility] Work Phone: 02-04-2022 10:31-0400 Body height 152.[address] Matthew Patel Work Phone: [facility] Work Phone: 02-04-2022 10:31-0400 Body weight 70.[address] Matthew Patel Work Phone: [facility] Work Phone: 02-04-2022 00:02-0400 Body mass index (BMI) [Ratio] 30.5 kg/m2 Dr. Matthew Patel Work Phone: [facility] Work Phone: 02-03-2022 23:24-0400 Body temperature 98.2 [degF] Dr. Matthew Patel Work Phone: [facility] Work Phone: 02-03-2022 23:24-0400 Diastolic blood pressure 88 mm[Hg] Dr. Matthew Patel Work Phone: [facility] Work Phone: 02-03-2022 23:24-0400 Heart rate 86 /min Dr. Matthew Patel Work Phone: [facility] Work Phone: 02-03-2022 23:24-0400 Respiratory rate 18 /min Dr. Matthew Patel Work Phone: [facility] Work Phone: 02-03-2022 23:24-0400 SaO2% (BldA) [Mass fraction] 93 % Dr. Matthew Patel Work Phone: [facility] Work Phone: 02-03-2022 23:24-0400 Systolic blood pressure 183 mm[Hg] Dr. Matthew Patel Work Phone: [facility] Work Phone: 02-03-2022 20:57-0400 Body height 152.[address] Matthew Patel Work Phone: [facility] Work Phone: 02-03-2022 20:57-0400 Body mass index (BMI) [Ratio] 30.4 kg/m2 Dr. Matthew Patel Work Phone: [facility] Work Phone: 02-03-2022 20:57-0400 Body weight 70.[address] Matthew Patel Work Phone: [facility] Work Phone: 01-16-2022 14:01-0400 Body mass index (BMI) [Ratio] 32.1 kg/m2 Dr. Matthew Patel Work Phone: [facility] Work Phone: 01-16-2022 14:01-0400 Body weight 72.[address] Matthew Patel Work Phone: [facility] Work Phone: 01-16-2022 14:01-0400 Diastolic blood pressure 88 mm[Hg] Dr. Matthew Patel Work Phone: [facility] Work Phone: 01-16-2022 14:01-0400 Heart rate 72 /min Dr. Matthew Patel Work Phone: [facility] Work Phone: 01-16-2022 14:01-0400 Respiratory rate 18 /min Dr. Matthew Patel Work Phone: [facility] Work Phone: 01-16-2022 14:01-0400 Systolic blood pressure 154 mm[Hg] Dr. Matthew Patel Work Phone: [facility] Work Phone: Encounters Encounter Date Encounter Type Care Provider Facility Start: 04-08-2025 ambulatory Matthew Patel Facility:[facility] Start: 03-19-2025 End: 03-19-2025 ambulatory Joyce GAONA Facility:[facility] Start: 03-19-2025 End: 03-19-2025 ambulatory Matthew Patel Facility:[facility] Start: 03-12-2025 ambulatory Matthew Patel Facility:[facility] Start: 03-12-2025 End: 03-12-2025 ambulatory Matthew Patel Facility:[facility] Start: 01-23-2025 End: 01-23-[address] Ines Lea MD -[facility] Work Phone: Start: 01-23-2025 End: 01-23-[address] Matthew Patel MD Work Phone: -[facility] Start: 01-13-2025 Non-patient / Non-visit Naila Mackenzie -[facility] Work Phone: Start: 01-13-2025 End: 01-13-[address] Ines Lea MD -[facility] Work Phone: Start: 01-13-2025 End: 01-13-[address] Matthew Patel MD Work Phone: -[facility] Start: 12-09-2024 End: 12-09-[address] Matthew Patel MD Work Phone: -[facility] Start: 12-09-2024 End: 12-09-[address] Matthew Patel MD -[facility] Start: 12-09-2024 End: 12-09-2024 ambulatory Matthew Patel Facility:[facility] Start: 11-18-2024 Non-patient / Non-visit Dr. Ines cope MD -[facility] Work Phone: Start: 06-12-2024 End: 06-12-2024 ambulatory Matthew Patel Facility:[facility] Start: 06-06-2024 End: 06-06-2024 ambulatory Matthew Patel Facility:[facility] Start: 08-28-2023 End: 08-28-2023 ambulatory [facility] Work Phone: Start: 08-28-2023 End: 08-28-2023 [facility] Start: 07-27-2023 End: 07-28-2023 ambulatory [facility] Start: 07-27-2023 End: 07-27-2023 Subsequent hospital visit by physician Amrit X-Ray [facility] Comment on above: Segmental and somati c dysfunction of lumbar region; Other intervertebral disc degeneration, lumbar region Start: 05-09-2023 End: 05-09-[address] Matthew Patel Work Phone: [facility] Work Phone: Start: 05-09-2023 End: 05-09-[address] Matthew Patel Work Phone: [facility] - [facility] Work Phone: Start: 04-23-2023 Non-patient / Non-visit Dr. Jimenez Patel Work Phone: [facility] Work Phone: Start: 04-18-2023 Non-patient / Non-visit Dr. Jimenez Patel Work Phone: [facility] Start: 04-18-2023 End: 04-18-[address] Matthew Patel Work Phone: [facility] Work Phone: Start: 04-18-2023 End: 04-18-[address] Matthew Patel Work Phone: [facility] Work Phone: Start: 03-20-2023 End: 03-20-[address] Matthew Patel Work Phone: [facility] Work Phone: Start: 02-23-2023 End: 02-23-[address] Matthew Patel Work Phone: [facility]-Outpatient [facility] Work Phone: Start: 02-19-2023 End: 02-19-[address] Matthew Patel Work Phone[facility] Start: 11-14-2022 End: 11-14-2022 ambulatory [facility] Work Phone: Start: 11-14-2022 End: 11-14-2022 Patient encounter procedure [facility]-Ultrasound, [facility] Work Phone: Start: 10-17-2022 End: 10-17-2022 ambulatory [facility] Work Phone: Start: 10-17-2022 End: 10-17-2022 Patient encounter procedure [facility]-Laboratory, Specimen Start: 10-03-2022 End: 10-03-2022 [facility] Start: 08-22-2022 End: 08-22-2022 [facility] Start: 08-21-2022 End: 08-21-2022 Discharged Recurring [facility]-Physical Therapy Start: 08-09-2022 End: 08-09-2022 ambulatory [facility] Work Phone: Start: 08-09-2022 End: 08-09-2022 Patient encounter procedure [facility] Start: 07-14-2022 End: 07-14-[address] Matthew Patel Work Phone: [facility] Work Phone: Start: 07-14-2022 End: 07-14-[address] Matthew Patel Work Phone: [facility] Start: 06-09-2022 End: 06-09-[address] Matthew Patel Work Phone: [facility] Work Phone: Start: 06-09-2022 End: 06-09-[address] [facility] Start: 03-28-2022 Non-patient / Non-visit Dr. Jimenez Patel Work Phone: [facility] Start: 03-28-2022 End: 03-28-2022 Admission to same day surgery center Dr. Matthew Patel Work Phone: [facility]-Endoscopy Start: 03-28-2022 End: 03-28-[address] Matthew Patel Work Phone: [facility] Work Phone: Start: 02-15-2022 End: 02-15-[address] Matthew Patel Work Phone: [facility] Work Phone: Start: 02-15-2022 End: 02-15-[address] Matthew Patel Work Phone: [facility] Start: 02-15-2022 End: 02-15-[address] Matthew Patel Work Phone: [facility] Start: 02-06-2022 Non-patient / Non-visit Dr. Jimenez Patel Work Phone: [facility] Start: 02-05-2022 Non-patient / Non-visit Dr. Jimenez Patel Work Phone: [facility] Start: 02-04-2022 Non-patient / Non-visit Dr. Jimenez Patel Work Phone: [facility] Start: 02-03-2022 End: 02-06-2022 Non-patient / Non-visit Dr. Matthew Patel Work Phone: [facility] Start: 02-03-2022 End: 02-06-2022 Evaluation and management of inpatient Dr. Matthew Patel Work Phone: [facility]-Medical Surgical 3 Start: 01-16-2022 End: 01-16-[address] Matthew Patel Work Phone: [facility] Start: 10-07-2021 End: 10-07-[address] 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) Start: 08-02-2018 End: 08-03-2018 Patient encounter procedure Rani Olivo Facility:[facility] Start: 08-02-2018 End: 08-03-2018 Patient encounter procedure Rani Olivo Facility:[facility] Start: 08-02-2018 Patient encounter procedure Facility:[id number] Start: 07-09-2018 End: 07-10-2018 Patient encounter procedure Shay Hoang Facility:[facility] Start: 07-09-2018 Patient encounter procedure Facility:[id number] Start: 07-05-2018 Patient encounter procedure Shay Hoang Facility:[facility] Start: 07-05-2018 End: 07-06-2018 Patient encounter procedure Shay Hoang Facility:[facility] Start: 04-02-2018 End: 04-03-2018 Patient encounter procedure Shay Hoang Facility:[facility] Start: 02-21-2018 End: 02-22-2018 Patient encounter procedure Shay Hoang Facility:[facility] Start: 02-12-2018 End: 02-13-2018 Patient encounter procedure Shayronna Camposer Facility:[facility] Start: 02-12-2018 Patient encounter procedure Facility:[id number] Start: 09-25-2017 End: 09-26-2017 Patient encounter procedure Shay Hoang Facility:[facility] Start: 08-28-2017 End: 08-29-2017 Patient encounter procedure Shay Hoang Facility:[facility] Start: 08-24-2017 End: 08-25-2017 Patient encounter procedure Shay Hoang Facility:[facility] Procedures Date Procedure Procedure Detail Performing Clinician Start: 12-09-2024 Urine microalbumin/creatinine ratio measurement Dr. Matthew Patel MD Work Phone: Start: 07-27-2023 XR LUMBAR SPINE COMP LETE 4+ VIEWS MARCO ANTONIO ALEJO Start: 07-27-2023 Radex spine lumbosac ral minimum 4 views Marco Antonio Alejo DC Work Phone: Start: 05-09-2023 MRI of cervical spine Saji Patel Work Phone: Start: 03-20-2023 Plain chest X-ray Dr. Nan Patel Work Phone: Start: 02-23-2023 Screening mammography Saji Patel Work Phone: Start: 11-14-2022 US urinary tract Start: 10-17-2022 Bacteria identified in Urine by Culture Start: 10-17-2022 Urine culture Start: 10-03-2022 Urine culture Start: 08-09-2022 Urine culture Start: 08-09-2022 X-ray of cervical spine Start: 03-28-2022 End: 03-28-[address] Matthew Patel Work Phone: Start: 02-04-2022 CT angiography of ch est with contrast Dr. Matthew Patel Work Phone: Start: 02-04-[address] Matthew Patel Work Phone: Start: 02-03-2022 End: 02-03-2022 Plain X-ray abdomen Dr. Matthew Patel Work Phone: Start: 02-03-2022 Computed tomography of abdomen and pelvis with intravenous contrast Dr. Matthew Patel Work Phone: Bacteria identified in Urine by Culture Mycology culture Urine culture Dr. Matthew Jansen en Work Phone: Urine culture Dr. Matthew Jansen en Work Phone: Urine culture Urine culture Urine culture Plan of Treatment Date Care Activity Detail Author Start: 03-28-2032 Screening for malign ant neoplasm of colon [facility] Start: 01-19-2023 COVID-19 Vaccine () COVID-19 Vaccine () [facility] Start: 01-19-2023 Influenza vaccination Influenza Vacc ine (#1) [facility] Start: 07-14-2022 [facility] Start: 03-28-2022 Colonoscopy flx dx w/collj spec when pfrmd DIAGNOSTIC COLONOSCOPY [facility] Start: 03-28-2022 Egd removal tumor polyp/other lesion snare tech EGD REMOVE LESION SNARE [facility] Start: 03-28-2022 Patient discharge [facility] Start: 2022 Pneumococcal Vaccine : 65+ Years (2 - PCV) Pneumococcal Vaccine: 65+ Years (2 - PCV) [facility] Start: 02-06-2022 Patient discharge [facility] Work Phone: Start: 02-05-2022 Provision of activit y privileges [facility] Work Phone: Start: 02-05-2022 Blood chemistry [facility] Work Phone: Start: 02-04-2022 End: 02-05-2022 [facility] Work Phone: Start: 02-04-2022 Incentive spirometry [facility] Work Phone: Start: 02-04-2022 Application of intermittent pneumatic compression device [facility] Work Phone: Start: 02-04-2022 Blood chemistry [facility] Work Phone: Start: 02-04-2022 Small bowel series [facility] Work Phone: Start: 02-04-2022 Small Bowel Series Only Small Bowel Series Only [facility] Work Phone: Start: 02-04-2022 Care planning and problem solving actions [facility] Work Phone: Start: 02-03-2022 Care regimes management [facility] Work Phone: Start: 02-03-2022 Notification of physician [facility] Work Phone: Start: 02-03-2022 Ambulation without limitation [facility] Work Phone: Start: 02-03-2022 End: 02-04-2022 Following clinical pathway protocol [facility] Work Phone: Start: 02-03-2022 Measuring intake and output [facility] Work Phone: Start: 02-03-2022 Taking patient vital signs [facility] Work Phone: Start: 02-03-2022 [facility] Work Phone: Start: 02-03-2022 Admission procedure [facility] Work Phone: Start: 01-20-2020 FLU (#1) FLU (#1) [facility] Start: 2007 Zoster Vaccines (1 of 2) Zoste r Vaccines (1 of 2) [facility] Start: 1997 Screening for malign ant neoplasm of breast Mammogram [facility] Start: 1979 DTaP/Tdap/Td Vaccine s (1 - Tdap) DTaP/Tdap/Td Vaccines (1 - Tdap) [facility] Start: 1978 Microscopic observat ion [Identifier] in Cervix by Cyto stain Pap Smear [facility] Start: 1976 Hepatitis B (1 of 3 - Risk 3-dose series) Hepatitis B (1 of 3 - Risk 3-dose series) [facility] Start: 1975 Hepatitis C screening Hepatitis C [facility] Start: 1973 MenB (1 of 2 - MenB 2-Dose Series) MenB (1 of 2 - MenB 2-Dose Series) [facility] Start: 1964 Tetanus Diphtheria a nd Pertussis Vaccines (1 - Tdap) Tetanus Diphtheria and Pertussis Vaccines (1 - Tdap) [facility] Start: 1958 Hepatitis A (1 of 2 - Risk 2-dose series) [facility] Start: 1958 MMR (1 of 1 - Standa rd series) MMR (1 of 1 - Standard series) [facility] Start: 1958 Varicella (1 of 2 - 2-dose childhood series) Varicella (1 of 2 - 2-dose childhood series) [facility] Start: 1957 Lipid panel Lipid Panel [facility] Start: 1957 Medicare Annual Well ness Visit Medicare Annual Wellness Visit (AWV) [facility] Start: 1957 Screening for malign ant neoplasm of colon [facility] Start: 1957 Screening for osteoporosis Bone Density Scan [facility] Anion gap measurement [facility] Work Phone: BUN/Creatinine ratio [facility] Work Phone: Calcium [Mass/volume ] in Serum or Plasma [facility] Work Phone: Carbon dioxide, tota l [Moles/volume] in Serum or Plasma [facility] Work Phone: Chloride [Moles/volu me] in Serum or Plasma [facility] Work Phone: Colonoscopy [facility] Work Phone: Creatinine [Moles/volume] in Serum or Plasma [facility] Work Phone: Glucose [Mass/volume ] in Serum or Plasma [facility] Work Phone: Hematocrit [Volume Fraction] of Blood [facility] Work Phone: Hemoglobin [Mass/vol ume] in Blood [facility] Work Phone: Leukocytes [#/volume ] in Blood [facility] Work Phone: Magnesium [Mass/volu me] in Serum or Plasma [facility] Work Phone: Mean corpuscular hemoglobin concentration determination [facility] Work Phone: Mean corpuscular hemoglobin determination [facility] Work Phone: Measurement of renal function [facility] Work Phone: Neutrophil count [facility] Work Phone: Neutrophil percent differential count [facility] Work Phone: Patient referral [facility] Work Phone: Platelets [#/volume] in Blood [facility] Work Phone: Potassium [Moles/vol ume] in Serum or Plasma [facility] Work Phone: Red blood cell count [facility] Work Phone: Red cell distributio n width determination [facility] Work Phone: Sodium [Moles/volume ] in Serum or Plasma [facility] Work Phone: Urea nitrogen [Mass/volume] in Serum or Plasma [facility] Work Phone: End: 07-27-2023 XR Lumbar spine 4 Views [facility] Work Phone: Comment on above: Once for 1 Occurrenc es starting 07/27/2023 until 07/27/2023 [facility] Immunizations Immunization Date Immunization Notes Care Provider Fa maria 11-08-2020 Covid (Moderna) Dr. Matthew costello Work Phone: [facility] 10-19-2020 Covid (Moderna) Dr. Matthew costello Work Phone: [facility] 10-09-2020 Sandritaid (Moderna) Dr. Matthew costello Work Phone: [facility] 02-20-2020 influenza virus vaccine, unspecified formulation [address] Work Phone: 04-07-2019 influenza, injectabl e, quadrivalent, preservative free Dr. Matthew Patel Work Phone: [facility] 04-07-2019 influenza, seasonal, injectable Dr. Matthew Patel Work Phone: [facility] 02-18-[address] Matthew Patel Work Phone: [facility] Work Phone: Payers Date Payer Category Payer Self-pay [phone] [id number] 2023 Medicare [id number] 2023 Medicare ANTHEM MEDICARE ANTHEM MEDICARE ADVANTAGE [id number] 2023-Present [address] [place] [address] [id number] 2020 Unknown [employer] [id number] 2020-Present [address] [place] [address] [id number] 2018 Unknown 2017 Private Health Insurance 1955 Unknown [id number] 2.16.840.1.952561.3.579.2. 356 1957 Unknown [id number] 2.16.840.1.261439.3.579.2. 356 1957 Unknown [id number] 2.16.840.1.330095.3.579.2. 356 1957 Unknown [id number] 2.16.840.1.858634.3.579.2. 717 1957 Unknown [id number] 2.16.840.1.952560.3.579.2. 71 1957 Unknown [id number] 2.16.840.1.597044.3.579.2. 71 1957 Unknown [id number] 2.16.840.1.629996.3.579.2. 71 1957 Unknown [id number] 2.16.840.1.409233.3.579.2. 717 1957 Unknown [id number] 2.16.840.1.492393.3.579.2. 1957 Unknown [id number] 2.16.840.1.168761.3.579.2. 1957 Unknown [id number] 2.16.840.1.143212.3.579.2. 1957 Unknown [id number] 2.16.840.1.183856.3.579.2. 1957 Unknown [id number] 2..840.1.226944.3.579.2. 1957 Unknown [id number] 2..840.1.664913.3.579.2. 1957 Unknown [id number] 2..840.1.781866.3.579.2. 1957 Unknown [id number] 2.840.1.416068.3.579.2. 1243 Private Health Insurance [id number] Unknown [id number] Unknown [facility] [id number] Unknown [id number] 2.840.1.700120.3.579.2. 462 Unknown [id number] 2.840.1.543372.3.579.2. 462 Unknown [id number] 2.840.1.800698.3.579.2. 462 Unknown [id number] 2.16840.1.485563.3.579.2. 462 Unknown [id number] 2.16840.1.972454.3.579.2. 462 Unknown [id number] 2.16.840.1.231250.3.579.2. 462 Unknown [id number] 2.16.840.1.394192.3.579.2. 462 Unknown [id number] 2.16840.1.527415.3.579.2. 462 Unknown [id number] 2.16.840.1.373280.3.579.2. 462 Unknown [id number] 2.16.840.1.877546.3.579.2. 462 Unknown [id number] 2.16.840.1.477941.3.579.2. 462 Social History Date Type Detail Facility Tobacco smoking status NHIS Unknown if ever smoked [facility] Start: 1955 Sex Assigned At Not on file [facility] Start: 07-17-2023 End: 07-27-2023 Exposure to SARS-CoV-2 (event) Not sure [facility] Start: 02-03-2022 End: 03-20-2023 Tobacco smoking status NHIS Unknown if ever smoked [facility] Start: 12-09-2019 None [facility] Start: 12-15-2019 With Family [facility] Start: 1955 Sex Assigned At Female [facility] Gender identity Not on file [facility] Work Phone: Start: 03-20-2023 Tobacco smoking status NHIS Never smoked tobacco (finding) [facility] NEGATED: Highlighted row [facility] Goals Date Patient Goal Desired Activity /State Functional Status Date Assessment Result Facility 02-06-2022 Functional status Ambulates [facility] Work Phone: Mental Status Date Assessment Result Facility 03-28-2022 Cognitive function Touch/Shaking [facility] Work Phone: 03-28-2022 Cognitive function Patient Orien tation Person;Place;Time [facility] Work Phone: 02-06-2022 Cognitive function Voice/Name [facility] Work Phone: Clinical Notes 09-15-2020 Rickey - Jose Treadwell, ADMITTING COORDINATOR - 09/15/2020 9:15 AM EDT Note Date & Type Note Facility 09-15-2020 Miscellaneous Notes Speech/Language Pathology Voice Evaluation for Vocal Cord Dysfunction Test Date: 09/15/2020 Patient Name: Reena Shaw Date of : 1955 Age: 65 y.o. MR#: [id number] Referring Physician: Marco Antonio Mckeon Length of Session: 1 hour and 35 minutes Summary: Reena Shaw was referred for a voice evaluation by Dr. 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 Medical History: Reena is diagnosed with hypertension, diabetes, and Obstructive Sleep Apnea and uses a CPAP during the night. Reena also reported to have acid reflux and general year-round allergies. Current Medications: Reena stated that she she is currently taking Omeprazole to treat heart burn and acid reflux/GERD. Reena also reported she takes high blood pressure medication. Daily Activities: Reena is retired and stated that most of her daily activities are spent around the house, doing laundry, cooking, and cleaning the house. Stated that she will experience her typical shortness of breath throughout these activities. Laryngeal exam: laryngeal exam completed on 09/09/[address] Mckeon revealed eustachian tube orifice, adenoids, nasopharynx, and lingual aspect of the epiglottis to be normal and without lesions. Also revealed, The true vocal cords were normal in appearance. The pyriform sinus was normal. During phonation and deep inspiration, the cords moved abnormally. The patient had abduction* of the cords on inspiration multiple breaths. No lesions were on the vocal cords." *"Abduction of the cords" is thought to be a typing error on the medical report. Based on the written report of abnormal vocal cord movement, as well as the patient's recall of the diagnosis from the procedure, it is suspected that there was "adduction" of the vocal cords. Pulmonary function test: Completed on 09/09/[address] Mckeon revealed normal spirometry at baseline. Reena is a 65-year-old retired woman who complains of consistent/chronic shortness of breath that is increased with exercise and talking for a prolonged period of time. She stated that she will often feel tightness in her chest and especially in her neck, feeling like it is swollen or puffy when trying to take in a deep breath. Reena stated that she has tried use of an inhaler, but did not find it beneficial. Stated that she has longstanding breathing difficulty but pulmonary function testing has ruled out asthma as contributory. Reena stated that she is often dizzy throughout the day, especially when she moves her head in quick motions or gets up quickly, but she will often face increased dizziness when she is short of breath. She has not identified a clear trigger for the dyspnea, but does feel that anxiety/stress contributes. Symptoms consistent with vocal cord dysfunction include: Dizziness/lightheadedness, Hoarseness, reported Inspiratory stridor which she can replicate, Sensation she cannot get enought air, Sensation of lump or thickness in throat and Tightness in the throat,upper chest/neck. Voice: Examination of the vocal mechanism indicates an intermittently mild dysphonia, characterized by raspy voice quality. Reena stated that her voice is often more raspy in the morning and will get better throughout the day, with increased water and use of voice, but denies any total loss of voice. Reena uses a clavicular/thoracic-supported respiratory pattern for speech purposes. Range of pitch, range of loudness, resonation, rate, and rhythm are within functional limits throughout conversation. The following vocally abusive behaviors are identified: chronic laryngopharyngeal reflux and decreased oral/vocal hydration (reported to be around 2-3 bottles of water/day). Metered breathing techniques using diaphragmatic breath support were practiced in supine, sitting, standing positions, and before/after short distances of walking. Equal respiratory cycles using one second inhalation and one second exhalation were used to enable the patient to gain active control of the respiratory pattern, In sitting and standing positions, metered breathing was practiced using visual and tactile prompts to assist with monitoring the compensatory, shallow upper chest breathing pattern, The patient was able to identify this pattern and replace it with abdominal breath support instead and is to practice metered breathing techniques six to eight minutes per day, two minutes in each position, using diaphragmatic breath support. She is to use metered breathing actively as soon as symptoms of vocal cord dysfunction occur. Impression: Symptoms are consistent with vocal cord dysfunction in the presence of multiple contributing factors. Recommendations: -Use of metered breathing with diaphragmatic breath support to control symptoms of vocal cord dysfunction. A detailed home program was provided today. -Should she encounter further difficulty, she will contact this therapist for additional follow-up. -A vocal hygiene protocol was provided including: increase of water intake, especially when caffeinated drinks are also consumed throughout the day. -Patient is encouraged to discuss management of laryngopharyngeal reflux and allergies with her physician, as this may be affecting Reena's voice and breathing abilities. Treatment Plan: Home program to focus on metered diaphragmatic breathing technique. Follow up with this therapist if concerns arise or if a follow-up appointment is needed. Jose Treadwell, ADMITTING COORDINATOR Samaria Reyes MA, CCC/ADMITTING COORDINATOR Speech Pathologist CC: Referring Physician(s) documented in this encounter [facility] Evaluation note Diagnosis Vocal cord dysfunction- Primary Other diseases of vocal cords [facility] Diagnosis Onset Date Resolution Status Essential hypertension chron ic Mixed hyperlipidemia chronic Palpitations chronic Abdominal pain acute Nausea acute Partial small bowel obstruction acute Essential hypertension chron ic Hypertension chronic Type 2 diabetes mellitus chr onic [facility] Work Phone: Evaluation note* Diagnosis Onset Date Resolution Status Mixed hyperlipidemia chronic Palpitations chronic Abdominal pain resolved Chest pain resolved Nausea resolved Partial small bowel obstruction resolved Blood in stool acute [facility] Work Phone: Evaluation noteNo assessment information available [facility] Work Phone: Evaluation note* Diagnosis Onset Date Resolution Status SOB (shortness of breath) ac [place] Mixed hyperlipidemia chronic Palpitations chronic [facility] Work Phone: Evaluation note* Diagnosis Segmental and somatic dysfunction of lumbar region Other intervertebral disc degeneration, lumbar region documented in this encounter [facility] Work Phone: Evaluation note* Diagnosis Segmental and somatic dysfunction of lumbar region Other intervertebral disc degeneration, lumbar region documented in this encounter [facility] Work Phone: Evaluation note* Diagnosis Onset Date Resolution Status Admit Date Nocturia acute January 23, 2025 1:08pm Overactive bladder acute Septem 2024 1:08pm Urinary tract infection acute S eptember 2024 1:08pm Vaginal atrophy acute January 23, 2025 1:08pm [facility] Work Phone: Reason for referral (narrative)No reason for referral [facility]: Reason for visit Narrative* Referral (Routine) Status Reason Specialty Diagnoses / Procedures Referred By Contact Referred To Contact Closed Rehabilitation / Speech Therapy Diagnoses R SIBILIA/EPIC Procedures VOCAL CORD DYSFUNCTION Marco Antonio Mckeon MD [address] [place] [address] Jennifer Reyes, CCC-[place] [address] [facility] Summary Purpose Family History No Family History Records Found Relationship Condition Age at Onset Recorded Date/T jamey mother Myocardial infarction Unknown brother Diabetes mellitus Unknown uncle Myocardial infarction Unknown Advance Directives No Advanced Directives Records FoundDocuments on File Type Date Recorded Patient Anthropologist Expl anation Power of Ornamental Plaster Sticker Advance Directive Response Recorded Date/ Time Advance Directives No December 08 9:19am Living Will No February 03, 2022 10:56pm Power of Ornamental Plaster Sticker No January 10:56pm Advance Directive Response Recorded Date/ Time Advance Directives No December 08 9:19am Living Will No February 04, 2022 12:02am Power of Ornamental Plaster Sticker No January 12:02am Advance Directive Response Recorded Date/ Time Advance Directives No December 08 8:19am Living Will No March 24 10:45am Power of Ornamental Plaster Sticker No March 24, 2022 10:45am Advance Directive Response Recorded Date/ Time Advance Directives No December 08 9:19am Living Will No March 24 11:45am Power of Ornamental Plaster Sticker No March 24, 2022 11:45am Advance Directive Response Recorded Date/ Time Advance Directives No December 08 9:19am Chief Complaint and Reason for Visit Chief Complaint 1 Y FU PARTIAL SMALL BOWEL OBSTRUCTION PARTIAL SMALL BOWEL OBSTRUCTION Reason for Visit Essential hypertensi on Mixed hyperlipidemia Palpitations Abdominal pain Nausea Partial small bowel obstruction Essential hypertension Hypertension Type 2 diabetes mellitus Chief Complaint 1 Y FU PARTIAL SMALL BOWEL OBSTRUCTION PARTIAL SMALL BOWEL OBSTRUCTION PARTIAL SMALL BOWEL OBSTRUCTION PARTIAL SMALL BOWEL OBSTRUCTION PARTIAL SMALL BOWEL OBSTRUCTION Reason for Visit Essential hypertensi on Mixed hyperlipidemia Palpitations Abdominal pain Nausea Partial small bowel obstruction Essential hypertension Hypertension Type 2 diabetes mellitus Chief Complaint 1 Y FU PARTIAL SMALL BOWEL OBSTRUCTION PARTIAL SMALL BOWEL OBSTRUCTION PARTIAL SMALL BOWEL OBSTRUCTION PARTIAL SMALL BOWEL OBSTRUCTION PARTIAL SMALL BOWEL OBSTRUCTION PARTIAL SBO 02/06 & DISCUSS SCOPE Reason for Visit Mixed hyperlipidemia Palpitations Abdominal pain Chest pain Nausea Partial small bowel obstruction Blood in stool Chief Complaint 1 Y FU PARTIAL SMALL BOWEL OBSTRUCTION PARTIAL SMALL BOWEL OBSTRUCTION PARTIAL SMALL BOWEL OBSTRUCTION PARTIAL SMALL BOWEL OBSTRUCTION PARTIAL SMALL BOWEL OBSTRUCTION PARTIAL SMALL BOWEL OBSTRUCTION PARTIAL SBO 02/06 & DISCUSS SCOPE Reason for Visit Mixed hyperlipidemia Palpitations Abdominal pain Chest pain Nausea Partial small bowel obstruction Blood in stool Chief Complaint CERVICALGIA/RX HERE Chief Complaint CERVICALGIA/RX HERE UTI Chief Complaint BREAST TENDERNESS 1 Y FU PREV PFM EORDERS SHORTNESS OF BREATH Reason for Visit SOB (shortness of br eath) Mixed hyperlipidemia Palpitations Chief Complaint BREAST TENDERNESS 1 Y FU PREV PFM EORDERS SHORTNESS OF BREATH Amb Documentation CERVICALGIA Reason for Visit SOB (shortness of br eath) Mixed hyperlipidemia Palpitations Chief Complaint CERVICALGIA Chief Complaint Admit Date uti January 13, 2025 11 :35am Chief Complaint Admit Date uti January 13, 2025 11 :35am Amb Documentation January 13, 2025 11 :53am 12m UTI and med f/u January 23, 2025 1:08pm Reason for Visit Admit Date Nocturia January 23, 2025 1:08pm Overactive bladder January 23, 2025 1:08pm Urinary tract infection January 23, 2 025 1:08pm Vaginal atrophy January 23, 2025 1:08pm Reason for Referral Specialty Diagnoses / Procedures Referred By Orestes t Referred To Contact Radiology Diagnoses Segmental and somatic dysfunction of lumbar region Other intervertebral disc degeneration, lumbar region Procedures XR lumbar spine complete 4+ views Marco Antonio Alejo, [place] [facility] [address] [place] [address] Referral ID Status Reason Start Date Expiration Date Visits Requested Visits Authorized [id number] Authorized Perform Procedure 07/27/2023 07/26/2024 1 1 Additional Source Comments INFORMATION SOURCE (unrecogn ized section and content) DATE CREATED AUTHOR 08/04/2018 [facility] DATE CREATED AUTHOR AUTHOR'S ORGANIZ ATION 08/04/2018 [facility] DATE CREATED AUTHOR AUTHOR'S ORGANIZ ATION 08/02/2023 [facility] DATE CREATED AUTHOR AUTHOR'S ORGANIZ ATION 03/31/2025 [facility] Goals (unrecognized section and content) Goals may be documented in a n alternate sectionGoals may be documented in an alternate sectionGoals may be documented in an alternate sectionGoals may be documented in an alternate sectionGoals may be documented in an alternate sectionGoals may be documented in an alternate sectionGoals may be documented in an alternate sectionGoals may be documented in an alternate sectionGoals may be documented in an alternate sectionGoals may be documented in an alternate section Care Teams (unrecognized sec tion and content) Team Status: Active Member Role Status Dates Dr. Matthew Patel MD Family Provider Active Dr. Matthew Patel MD Primary Care Provider Active Team Status: Active Member Role Status Dates Dr. Matthew Patel MD Primary Care Provider, Referring Provider Active Dr. Oumar Hahn MD Attending Provider, Other Provider Active Team Status: Inactive Member Role Status Dates Dr. Matthew Patel MD Primary Care Provider, Referring Provider Active Dr. Oumar Hahn MD Attending Provider Active Team Status: Inactive Member Role Status Dates Dr. Matthew Patel MD Primary Care Provi karen, Attending Provider, Referring Provider Active Team Status: Inactive Member Role Status Dates Dr. Matthew Patel MD Primary Care Provider Active Dr. Watson Gant MD Attending Provider Active Team Status: Active Member Role Status Dates Dr. Matthew Patel MD Family Provider Active Dr. Geoff Alvarenga MD Primary Care Provider Active Team Status: Inactive Member Role Status Dates Dr. Geoff Alvarenga MD Primary Care Pr ovider, Attending Provider, Referring Provider Active Team Status: Inactive Member Role Status Dates Dr. Geoff Alvarenga MD Primary Care Provider Active Alba Watson DO Attending Provider Active Team Status: Inactive Member Role Status Dates Dr. Ines Lea MD Attending Provider, Referring P rovider Active Dr. Matthew Patel MD Primary Care Provider Active Team Status: Inactive Member Role Status Dates Dr. Matthew Patel MD Primary Care Provider, Referring Provider Active Dr. Matthew Bourgeois MD Active Liana Oropeza GROUN[employer] CREW SUPERVISOR, GROUNDS CREW SUPERVISOR-C Attending Provider Active Team Status: Inactive Member Role Status Dates Dr. Matthew Patel MD Primary Care Provider, Attending Provider Active Team Status: Inactive Member Role Status Dates Dr. Matthew Patel MD Primary Care Provider Active Liana Oropeza NP, GROUNDS CREW SUPERVISOR-C Attending Provider, Referring P rovider Active Team Status: Active Member Role Status Dates Dr. Matthew Patel MD Primary Care Provider Active Dr. Melly Barrow MD Attending Provider, Referring Pr ovider Active Team Status: Active Member Role Status Dates Dr. Matthew Patel MD Primary Care Provider Active Liana Oropeza GROUNDS CREW SUPERVISOR, GROUNDS CREW SUPERVISOR-C Attending Provider Active Licensed Customs Broker Relationship Specialty Start Date End Date Matthew Patel MD [address] [place] [address] PCP - [facility] Family Medicine 07/27/23 Licensed Customs Broker Relationship Specialty Start Date End Date Matthew Patel MD [address] [place], [place] [address] PCP - [facility] Medicine 07/27/23 Team Status: Active Member Role/Relationship Status Dates Dr. Matthew Patel MD Family Provider Active Dr. Matthew Patel MD Primary Care Provider Active Team Status: Inactive Member Role/Relationship Status Dates Dr. Matthew Patel MD Primary Care Provider Active Start: November 18, 2024 Dr. Ines Lea MD Attending Provider Active Start: November 18, 2024 Team Status: Inactive Member Role/Relationship Status Dates Dr. Matthew Patel MD Primary Care Provider Active Start: December 09, 2024 End: December 09, 2024 Dr. Matthew Patel MD Attending Provider Active Start: December 09, 2024 End: December 09, 2024 Dr. Matthew Patel MD Referring Provider Active Start: December 09, 2024 End: December 09, 2024 Team Status: Inactive Member Role/Relationship Status Dates Dr. Matthew Patel MD Primary Care Provider Active Start: January 13, 2025 End: January 13, 2025 Dr. Matthew Patel MD Referring Provider Active Start: January 13, 2025 End: January 13, 2025 Dr. Ines Lea MD Attending Provider Active Start: January 13, 2025 End: January 13, 2025 Team Status: Active Member Role/Relationship Status Dates Dr. Matthew Patel MD Primary Care Provider Active Start: January 13, 2025 Naila Mackenzie Attending Provider Active Start: 2024 Team Status: Inactive Member Role/Relationship Status Dates Dr. Matthew Patel MD Primary Care Provider Active Start: January 23, 2025 End: January 23, 2025 Dr. Matthew Patel MD Referring Provider Active Start: January 23, 2025 End: January 23, 2025 Dr. Ines Lea MD Attending Provider Active Start: January 23, 2025 End: January 23, 2025 Reason for Visit (unrecogniz ed section and content) Specialty Diagnoses / Procedures Referred By Contac t Referred To Contact Radiology Diagnoses Segmental and somatic dysfunction of lumbar region Other intervertebral disc degeneration, lumbar region Procedures XR lumbar spine complete 4+ views Marco Antonio Alejo, [place] [address] [place] [address] Referral ID Status Reason Start Date Expiration Date Visits Requested Visits Authorized [id number] Authorized Perform Procedure 07/27/2023 07/26/2024 1 1 FOR RECORDS PERTAINING TO PATIENTS WHO ARE OR HAVE BEEN ENROLLED IN A CHEMICAL DEPENDENCY/SUBSTANCEABUSE PROGRAM, SOME INFORMATION MAY BE OMITTED. This clinical summary was aggregated from multiple sources. Caution should be exercised in using it in the provision of clinical care. This summary normalizes information from multiple sources, and as a consequence, information in this document may materially change the coding, format and clinical context of patient data. In addition, data may be omitted in some cases. CLINICAL DECISIONS SHOULD BE BASED ON THE PRIMARY CLINICAL RECORDS. [employer] provides no warranty or guarantee of the accuracy or completeness of information in this document.
== END | disposition home or self-care (01) ==
LOC: CVS 13:32
PROVIDERS: PCP Family Medicine; Referring Provider Physician Assistant Medical; Visit Provider Physician Assistant Medical
DX: R06.02 Shortness of breath (principal)
CPT/HCPCS: 93306; Q9957; A4216; C8929

== ENCOUNTER → 2025-04-15 | Outpatient (CLI) | payer MEDICARE, SELFPAY ==
--- NOTE | 2025-04-15 08:33 | NM_ITS ---
PROCEDURE: GASTRIC EMPTYING STUDY - 4 HR 04/15/2025 REASON FOR EXAM: NAUSEA, DIABETES COMPARISON: None TECHNIQUE: Procedure Code: [id number] Modality: NM Procedure: GASTRIC EMPTYING STUDY - 4 HR The patient ingested a standard meal of cooked 2 eggs, 2 slices of toast, 2 pads of butter, and 6 oz water. There was no vomiting postprandially. Anterior and posterior planar images of the upper abdomen were obtained for 1 minute immediately following the meal at 1h, 2h and 4h if more than 10% of the activity persisted within the stomach. Regions of interest were drawn, and a geometric mean was used to calculate a [id number]. RADIOPHARMACEUTICAL: Oral administration of 1.1 mCi technetium 99 M sulfur colloid within the solid meal. FINDINGS: During the time of imaging, gastroesophageal reflux was not seen. Linear fit gastric emptying half-time of 119.67 minutes. Raw data fit gastric emptying half-time of 105.70 minutes. Percent activity remaining in stomach: 1 hour 81 % (normal 37-90%) 2 hours: 47 % (normal 30-60%) 4 hours: 5 % (normal 0-10%) NM/Gastric Emptying Study - 4 HR IMPRESSION: Normal solid phase gastric emptying Reading Location: [id number]
== END | disposition home or self-care (01) ==
LOC: NM 08:32
PROVIDERS: PCP Family Medicine; Referring Provider Internal Medicine Gastroenterology; Visit Provider Internal Medicine Gastroenterology
DX: R11.2 Nausea with vomiting, unspecified (principal); E11.9 Type 2 diabetes mellitus without complications
CPT/HCPCS: 78264; A9541

== ENCOUNTER → 2025-05-04 | Outpatient (CLI) | payer MEDICARE, SELFPAY ==
--- NOTE | 2025-05-04 11:35 | RAD_ITS ---
PROCEDURE: KNEE 4 OR MORE VIEWS 05/04/2025 REASON FOR EXAM: LEFT KNEE PAIN TECHNIQUE: Procedure Code: RADKN Modality: DX Procedure: KNEE 4 OR MORE VIEWS Laterality: Left COMPARISON: None FINDINGS: Images of the left knee demonstrate no evidence of fracture or dislocation. There is no significant arthritis of the patellofemoral joint. There is no significant arthritis of the medial joint space compartment of the knee. There is no significant arthritis of the lateral joint space compartment of the knee. There is no knee joint effusion. The periarticular soft tissues are normal. RAD/Knee 4 or More Views IMPRESSION: No significant abnormality of the left knee. Reading Location: [place] [id number]
--- NOTE | 2025-05-04 11:35 | RAD_ITS ---
PROCEDURE: HIPS B/L MIN 2 VIEWS W/ PELVIS 05/04/2025 REASON FOR EXAM: HIP PAIN TECHNIQUE: Procedure Code: [id number] Modality: DX Procedure: HIPS B/L MIN 2 VIEWS W/ PELVIS Laterality: Bilateral COMPARISON: None FINDINGS: The bony pelvis is intact. There is mild spurring of both SI joints. There is mild degenerative disc disease, L3-4 through L5-S1. There are no soft tissue abnormalities. AP and lateral views of the right hip demonstrate no evidence of fracture or dislocation. There is no significant joint space abnormality. The periarticular soft tissues are normal. AP and lateral views of the left hip demonstrate no evidence of fracture or dislocation. There is no significant joint space abnormality. The periarticular soft tissues are normal. RAD/Hips B/L min 2 views w/ Pelvis IMPRESSION: No significant abnormality of the pelvis or either hip. Reading Location: [place] [address]
== END | disposition home or self-care (01) ==
PROVIDERS: PCP Family Medicine; Referring Provider Family Medicine; Visit Provider Family Medicine
DX: M25.551 Pain in right hip (principal); M25.552 Pain in left hip; M25.562 Pain in left knee
CPT/HCPCS: 73521; 73564